=== PATIENT | female | born 1980 | race African-American/Black ===

== ENCOUNTER → 2016-08-26 | Outpatient (CLI) | payer MEDICAID ==
[~2016-08-26] MED LIST: /PANT40TA PO; MINI2CAP PO; NAPR250T2 PO; PROZ20CA11 PO; REME15TA PO
[2016-08-26 10:16] LABS: ALBUMIN 3.5 GM/DL (3.2-5.2); ALBUMIN/GLOBULIN RATIO 1.25 (1.00-1.93); ALKALINE PHOSPHATASE 91 U/L (45-117); ALT/SGPT 27 U/L (12-78); ANION GAP 11 MEQ/L (8-16); AST/SGOT 19 U/L (15-37); BILIRUBIN,TOTAL 0.4 MG/DL (0.2-1.0); BLOOD UREA NITROGEN 9 MG/DL (7-18); CARBON DIOXIDE LEVEL 22 MEQ/L (21-32); CHLORIDE LEVEL 111 MEQ/L (98-107); CHOLESTEROL LEVEL 102 MG/DL (<200); CREATININE FOR GFR 0.91 MG/DL (0.55-1.02); GLOMERULAR FILTRATION RATE > 60.0 (>60); GLUCOSE, FASTING 103 MG/DL (70-105); POTASSIUM SERUM 4.3 MEQ/L (3.5-5.1); SODIUM LEVEL 144 MEQ/L (136-145); TOTAL PROTEIN 6.3 GM/DL (6.4-8.2); TRIGLYCERIDES LEVEL 84 MG/DL (<150)
== END ==
LOC: M LAB 07:51
PROVIDERS: ATTEND Family Medicine Addiction Medicine
DX: I10 Essential (primary) hypertension (principal)

== ENCOUNTER → 2016-12-02 | Outpatient (CLI) | payer MEDICAID ==
[~2016-12-02] MED LIST changes: +IBUP-1022 PO; +LAMO100T; +LAMO25TA2; +LATU40TA; +LISI-538; +NAPR500T3 PO; +ROBA500T PO; +TYLE325T5 PO
--- NOTE | 2016-12-02 10:18 | REP ---
Chest two views HISTORY: Chest pain Comparison: 06/22/2015 The lungs are clear. The heart is normal in size. The pulmonary vasculature is normal in appearance. The bony structure is intact. IMPRESSION: No acute disease. Signed by Preet Rene MD 12/02/2016 10:09 A
--- NOTE | 2016-12-03 18:00 | ECGEPIP ---
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
== END ==
LOC: M EKG 09:26
PROVIDERS: ATTEND Family Medicine Addiction Medicine
DX: R07.89 Other chest pain (principal)

== ENCOUNTER 2017-02-10 09:16 | Emergency (ER) | payer MEDICAID ==
[~2017-02-10] VITALS: Ht 167.6 cm; Wt 123.8 kg
[~2017-02-10 09:16] MED LIST changes: -IBUP-1022 PO; -LAMO100T; -LAMO25TA2; -LATU40TA; -LISI-538; -NAPR500T3 PO; -ROBA500T PO; -TYLE325T5 PO
[2017-02-10] MEDS ORDERED: LATU40TA (09:23)
[2017-02-10] MEDS ORDERED: LAMO100T (09:23)
[2017-02-10] MEDS ORDERED: LISI-538 (09:23)
[2017-02-10] MEDS ORDERED: LAMO25TA2 (09:23)
[2017-02-10] MEDS ORDERED: IBUP-1022 PO (09:24)
[2017-02-10] MEDS ORDERED: TYLE325T5 PO (09:24)
[2017-02-10] MEDS ORDERED: KETOROLAC 60 MG/2 ML VIAL (J1885) IM ONE (10:00)
[2017-02-10] MEDS ORDERED: ROBA500T PO (10:34)
[2017-02-10] MEDS ORDERED: NAPR500T3 PO (10:34)
--- NOTE | 2017-02-10 10:36 | REP ---
Right shoulder three views : There is no fracture or dislocation. Mineralization and joint spaces are normal. There are no calcifications or foreign bodies. Impression: Negative shoulder Signed by Tony Mg MD 02/10/2017 10:28 A
[2017-02-10 11:04] VITALS: BP 138/88
== END 2017-02-10 11:05 | disposition home or self-care (01) ==
LOC: M ED 09:16
DX: S46.911A Strain of unspecified muscle, fascia and tendon at shoulder and upper arm level, right arm, initial encounter (principal); X58.XXXA Exposure to other specified factors, initial encounter; Y92.89 Other specified places as the place of occurrence of the external cause; Y93.89 Activity, other specified; Y99.8 Other external cause status; F17.210 Nicotine dependence, cigarettes, uncomplicated
CPT/HCPCS: 73030; 96372; 99282; J1885

== ENCOUNTER → 2017-06-01 | Outpatient (REF) | payer MEDICAID ==
[2017-06-01 19:35] LABS: ALBUMIN 4.4 GM/DL (3.2-5.2); ALBUMIN/GLOBULIN RATIO 1.19 (1.00-1.93); ALKALINE PHOSPHATASE 101 U/L (45-117); ALT/SGPT 40 U/L (12-78); ANION GAP 9 MEQ/L (8-16); AST/SGOT 24 U/L (7-37); BILIRUBIN,TOTAL 0.6 MG/DL (0.2-1.0); BLOOD UREA NITROGEN 11 MG/DL (7-18); CALCIUM LEVEL 8.9 MG/DL (8.5-10.1); CARBON DIOXIDE LEVEL 21 MEQ/L (21-32); CHLORIDE LEVEL 109 MEQ/L (98-107); CHOLESTEROL LEVEL 115 MG/DL (<200); CREATININE FOR GFR 1.01 MG/DL (0.55-1.30); GLOMERULAR FILTRATION RATE > 60.0 (>60); GLUCOSE, FASTING 105 MG/DL (70-100); HDL CHOLESTEROL 46 MG/DL (>40); NON-HDL-C 69 MG/DL; POTASSIUM SERUM 4.1 MEQ/L (3.5-5.1); SODIUM LEVEL 139 MEQ/L (136-145); TOTAL PROTEIN 8.1 GM/DL (6.4-8.2); TRIGLYCERIDES LEVEL 195 MG/DL (<150)
== END ==
LOC: M LAB REF 17:26
DX: I10 Essential (primary) hypertension (principal)

== ENCOUNTER 2017-06-11 10:12 | Emergency (ER) | payer MEDICAID ==
[2017-06-11] MEDS: PERCOCET 5MG/325MG TAB PO (10:46)
[2017-06-11 11:02] LABS: KETONE, URINE AUTO RFX NEGATIVE (NEGATIVE); NITRITE, URINE AUTO RFX NEGATIVE (NEGATIVE); RBC, URINE AUTO RFX 0 /HPF (0-3); SPECIFIC GRAVITY UR AUTO RFX 1.027 (1.002-1.035); SQUAM EPITHELIAL CELL UR AURFX 4 /HPF (0-6); WBC, URINE AUTO RFX 1 /HPF (0-3)
[2017-06-11 11:04] LABS: LEUKOCYTE ESTERASE UR AUTO RFX 2+ (NEGATIVE)
== END 2017-06-11 12:22 | disposition home or self-care (01) ==
LOC: M ED 10:12
DX: R10.2 Pelvic and perineal pain (principal); I10 Essential (primary) hypertension; F31.9 Bipolar disorder, unspecified; Z97.5 Presence of (intrauterine) contraceptive device; Z79.899 Other long term (current) drug therapy; F17.210 Nicotine dependence, cigarettes, uncomplicated
CPT/HCPCS: 76856

== ENCOUNTER → 2017-08-02 | Outpatient (CLI) | payer MEDICAID ==
[2017-08-02 08:56] LABS: ESTIMATED AVERAGE GLUCOSE 117 MG/DL (60-110); HEMOGLOBIN A1c 5.7 %
[2017-08-02 09:15] LABS: ALBUMIN/GLOBULIN RATIO 1.21 (1.00-1.93); ALKALINE PHOSPHATASE 93 U/L (45-117); ALT/SGPT 25 U/L (12-78); ANION GAP 4 MEQ/L (8-16); AST/SGOT 17 U/L (7-37); BILIRUBIN,TOTAL 0.6 MG/DL (0.2-1.0); BLOOD UREA NITROGEN 11 MG/DL (7-18); CALCIUM LEVEL 8.8 MG/DL (8.5-10.1); CARBON DIOXIDE LEVEL 25 MEQ/L (21-32); CHLORIDE LEVEL 111 MEQ/L (98-107); CREATININE FOR GFR 1.04 MG/DL (0.55-1.30); GLOMERULAR FILTRATION RATE > 60.0 (>60); GLUCOSE, FASTING 101 MG/DL (70-100); POTASSIUM SERUM 4.2 MEQ/L (3.5-5.1); SODIUM LEVEL 140 MEQ/L (136-145); TOTAL PROTEIN 7.3 GM/DL (6.4-8.2)
[2017-08-04 00:06] LABS: LAMOTRIGINE (LAMICTAL) None Detected ug/mL (2.0-20.0)
== END ==
LOC: M LAB 08:09
DX: F31.5 Bipolar disorder, current episode depressed, severe, with psychotic features (principal)
CPT/HCPCS: 80178

== ENCOUNTER → 2017-08-31 | Outpatient (CLI) | payer MEDICAID ==
[2017-08-31 09:24] LABS: LITHIUM LEVEL 0.68 MEQ/L (0.60-1.20)
== END ==
LOC: M LAB 08:03
DX: F31.5 Bipolar disorder, current episode depressed, severe, with psychotic features (principal)
CPT/HCPCS: 80178

== ENCOUNTER → 2018-04-21 | Outpatient (REF) | payer MEDICAID ==
[~2018-04-21] MED LIST changes: +AMOX875T PO; +IBUP-1022 PO; +IBUP-1114 PO; +KETO10TAB PO; +LAMO100T; +LAMO10TA PO; +LAMO25TA2; +LATU40TA; +LISI-538; +MIRE1IUD IU; +NAPR-885 PO; +PRAZ1CAP PO; +REXU1TAB5 PO; +ROBA500T PO; +SERO1TAB2 PO; +TYLE325T5 PO
[2018-04-21 13:31] LABS: BASO % 0.4 % (0.0-1.0); EOS # 0.2 10^3/uL (0.0-0.50); EOS % 2.1 % (0.0-3.0); HEMATOCRIT 41.2 % (36.0-47.0); LYMPH # 2.2 10^3/uL (1.5-4.5); MEAN CORPUSCULAR HEMOGLOBIN 30.7 pg (27.0-33.0); MEAN CORPUSCULAR HGB CONC 36.4 g/dl (32.0-36.5); MEAN CORPUSCULAR VOLUME 84.3 fl (80.0-96.0); MONO # 0.5 10^3/uL (0.0-0.8); MONO % 6.1 % (0.0-5.0); NEUTROPHILS # 5.1 10^3/uL (1.8-7.7); NEUTROPHILS % 63.9 % (36.0-66.0); PLATELET COUNT, AUTOMATED 262 10^3/uL (150-450); RED BLOOD COUNT 4.89 10^6/uL (4.00-5.40)
[2018-04-21 13:33] LABS: ALBUMIN 3.6 GM/DL (3.2-5.2); ALT/SGPT 28 U/L (12-78); BILIRUBIN,TOTAL 0.3 MG/DL (0.2-1.0); BLOOD UREA NITROGEN 13 MG/DL (7-18); CALCIUM LEVEL 7.9 MG/DL (8.5-10.1); CARBON DIOXIDE LEVEL 22 MEQ/L (21-32); CHLORIDE LEVEL 109 MEQ/L (98-107); CHOLESTEROL LEVEL 112 MG/DL (<200); CHOLESTEROL RISK RATIO 2.545 (<5); GLOMERULAR FILTRATION RATE > 60.0 (>60); GLUCOSE, FASTING 113 MG/DL (70-100); HDL CHOLESTEROL 44 MG/DL (>40); LDL CHOLESTEROL 54 MG/DL (<100); NON-HDL-C 68 MG/DL; POTASSIUM SERUM 4.2 MEQ/L (3.5-5.1); SODIUM LEVEL 139 MEQ/L (136-145); TRIGLYCERIDES LEVEL 71 MG/DL (<150); VITAMIN B12 LEVEL 414 PG/ML (247-911)
[2018-04-21 15:19] LABS: ERYTHROCYTE SEDIMENTATION RATE 18 mm/hr (0-20)
== END ==
LOC: M LAB REF 12:43
PROVIDERS: ATTEND Family Medicine Addiction Medicine
DX: M25.549 Pain in joints of unspecified hand (principal)

== ENCOUNTER 2018-04-26 09:45 | Emergency (ER) | payer MEDICAID ==
[~2018-04-26] VITALS: Ht 167.6 cm; Wt 118.2 kg
[2018-04-26 09:45] VITALS: BP 133/77
[~2018-04-26 09:45] MED LIST changes: -AMOX875T PO; -IBUP-1114 PO; -KETO10TAB PO; -MIRE1IUD IU; -SERO1TAB2 PO
[2018-04-26] MEDS ORDERED: IBUP-1114 PO (09:51)
[2018-04-26] MEDS ORDERED: SERO1TAB2 PO (09:51)
[2018-04-26] MEDS ORDERED: MIRE1IUD IU (09:52)
[2018-04-26] MEDS ORDERED: KETOROLAC TROMETHAMINE 10 MG TAB PO ONE (10:00)
[2018-04-26] MEDS ORDERED: AMOXICILLIN 500 MG CAP PO ONE (10:00)
[2018-04-26] MEDS ORDERED: KETO10TAB PO (10:01)
[2018-04-26] MEDS ORDERED: AMOX875T PO (10:01)
== END 2018-04-26 10:16 | disposition home or self-care (01) ==
LOC: M ED 09:45
DX: H66.91 Otitis media, unspecified, right ear (principal); R68.84 Jaw pain; R50.9 Fever, unspecified; I10 Essential (primary) hypertension; F31.9 Bipolar disorder, unspecified; F43.10 Post-traumatic stress disorder, unspecified; F41.9 Anxiety disorder, unspecified; F17.200 Nicotine dependence, unspecified, uncomplicated; Z79.899 Other long term (current) drug therapy; Z97.5 Presence of (intrauterine) contraceptive device

== ENCOUNTER → 2018-07-21 | Outpatient (REF) | payer MEDICAID ==
[~2018-07-21] MED LIST changes: +AMOX875T PO; +IBUP-1114 PO; +KETO10TAB PO; -LAMO25TA2; +LAMO25TA4; +MIRE1IUD IU; +SERO1TAB2 PO
[2018-07-21 19:49] LABS: HEMOGLOBIN A1c 5.8 %
== END ==
LOC: M LAB REF 17:26
PROVIDERS: ATTEND Family Medicine Addiction Medicine
DX: O92.6 Galactorrhea (principal)

== ENCOUNTER → 2018-10-14 | Outpatient (REF) | payer MEDICAID ==
[~2018-10-14] MED LIST changes: -/PANT40TA PO; +LAMO100T80 PO; -LAMO10TA PO; +PROT1TAB2 PO
[2018-10-14 13:14] LABS: ALT/SGPT 30 U/L (12-78); BILIRUBIN,TOTAL 0.4 MG/DL (0.2-1.0); BLOOD UREA NITROGEN 12 MG/DL (7-18); CALCIUM LEVEL 8.7 MG/DL (8.5-10.1); CARBON DIOXIDE LEVEL 24 MEQ/L (21-32); CHLORIDE LEVEL 109 MEQ/L (98-107); CHOLESTEROL LEVEL 118 MG/DL (<200); CHOLESTEROL RISK RATIO 2.744 (<5); CREATININE FOR GFR 1.14 MG/DL (0.55-1.30); GLOMERULAR FILTRATION RATE > 60.0 (>60); GLUCOSE, FASTING 113 MG/DL (70-100); HDL CHOLESTEROL 43 MG/DL (>40); LDL CHOLESTEROL 48 MG/DL (<100); NON-HDL-C 75 MG/DL; POTASSIUM SERUM 4.1 MEQ/L (3.5-5.1); SODIUM LEVEL 141 MEQ/L (136-145); TOTAL PROTEIN 6.9 GM/DL (6.4-8.2); TRIGLYCERIDES LEVEL 137 MG/DL (<150)
== END ==
LOC: M LAB REF 11:20
PROVIDERS: ATTEND Family Medicine Addiction Medicine
DX: I10 Essential (primary) hypertension (principal)

== ENCOUNTER → 2019-01-03 | Outpatient (REF) | payer MEDICAID ==
[2019-01-03 21:21] LABS: CHLAMYDIA DNA AMPLIFICATION NEGATIVE (NEGATIVE); GC DNA AMPLIFICATION NEGATIVE (NEGATIVE)
== END ==
LOC: M LAB REF 19:06
PROVIDERS: ATTEND Advanced Practice Midwife
DX: Z11.3 Encounter for screening for infections with a predominantly sexual mode of transmission (principal)

== ENCOUNTER → 2019-01-03 | Outpatient (CLI) | payer MEDICAID ==
[2019-01-04 13:18] LABS: HEPATITIS A ANTIBODY IGM NEGATIVE (NEGATIVE); HEPATITIS B CORE ANTIBODY IGM NEGATIVE (NEGATIVE); HEPATITIS B SURFACE ANTIGEN NEGATIVE (NEGATIVE); HEPATITIS C VIRUS ABY INDEX < 0.0 INDEX (<0.8); HIV 1&2 SCREEN CENTAUR NEGATIVE (NEGATIVE)
[2019-01-06 14:09] LABS: HPV HYBRID CAPTURE II Negative (Negative)
== END ==
LOC: M SMT 14:08
PROVIDERS: ATTEND Advanced Practice Midwife
DX: Z12.4 Encounter for screening for malignant neoplasm of cervix (principal); Z11.3 Encounter for screening for infections with a predominantly sexual mode of transmission

== ENCOUNTER → 2019-11-01 | Outpatient (CLI) | payer MEDICAID ==
[~2019-11-01] MED LIST changes: -LAMO100T; +LAMO100T3
[2019-11-01 14:21] LABS: HEMATOCRIT 40.5 % (36.0-47.0); HEMOGLOBIN 14.8 g/dl (12.0-15.5); MEAN CORPUSCULAR HGB CONC 36.5 g/dl (32.0-36.5); MEAN CORPUSCULAR VOLUME 84.7 fl (80.0-96.0); PLATELET COUNT, AUTOMATED 246 10^3/uL (150-450); RED BLOOD COUNT 4.78 10^6/uL (4.00-5.40); WHITE BLOOD COUNT 7.9 10^3/uL (4.0-10.0)
[2019-11-01 14:48] LABS: HEMOGLOBIN A1c 5.9 %
[2019-11-01 14:58] LABS: ALBUMIN 3.9 GM/DL (3.2-5.2); ALT/SGPT 31 U/L (12-78); BILIRUBIN,TOTAL 0.9 MG/DL (0.2-1.0); BLOOD UREA NITROGEN 9 MG/DL (7-18); CALCIUM LEVEL 9.2 MG/DL (8.5-10.1); CARBON DIOXIDE LEVEL 25 MEQ/L (21-32); CHLORIDE LEVEL 110 MEQ/L (98-107); CHOLESTEROL LEVEL 120 MG/DL (<200); CREATININE FOR GFR 0.93 MG/DL (0.55-1.30); GLOMERULAR FILTRATION RATE > 60.0 (>60); GLUCOSE, FASTING 107 MG/DL (70-100); HDL CHOLESTEROL 40 MG/DL (>40); LDL CHOLESTEROL 51 MG/DL (<100); NON-HDL-C 80 MG/DL; POTASSIUM SERUM 4.1 MEQ/L (3.5-5.1); SODIUM LEVEL 140 MEQ/L (136-145); TOTAL 25(OH) VITAMIN D 22.9 NG/ML (30.0-100.0); TRIGLYCERIDES LEVEL 143 MG/DL (<150)
--- NOTE | 2019-11-02 08:46 | ECGEPIP ---
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
== END ==
LOC: M LAB 13:09
PROVIDERS: ATTEND Nurse Practitioner Psychiatric/Mental Health
DX: F43.10 Post-traumatic stress disorder, unspecified (principal); F31.9 Bipolar disorder, unspecified

== ENCOUNTER → 2020-02-13 | Outpatient (CLI) | payer MEDICAID ==
--- NOTE | 2020-02-13 10:58 | ECGEPIP ---
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
[2020-02-13 15:21] LABS: BASO % 0.4 % (0.0-1.0); EOS # 0.1 10^3/uL (0.0-0.5); EOS % 1.2 % (0.0-3.0); HEMATOCRIT 41.3 % (36.0-47.0); HEMOGLOBIN 14.5 g/dl (12.0-15.5); LYMPH # 2.6 10^3/uL (1.5-5.0); MEAN CORPUSCULAR HEMOGLOBIN 29.4 pg (27.0-33.0); MEAN CORPUSCULAR HGB CONC 35.1 g/dl (32.0-36.5); MEAN CORPUSCULAR VOLUME 83.8 fl (80.0-96.0); MONO # 0.6 10^3/uL (0.0-0.8); MONO % 6.6 % (0.0-5.0); NEUTROPHILS # 5.6 10^3/uL (1.5-8.5); NEUTROPHILS % 62.4 % (36.0-66.0); PLATELET COUNT, AUTOMATED 249 10^3/uL (150-450); RED BLOOD COUNT 4.93 10^6/uL (4.00-5.40)
[2020-02-13 16:01] LABS: ALBUMIN 3.8 GM/DL (3.2-5.2); ALT/SGPT 34 U/L (12-78); BILIRUBIN,TOTAL 0.3 MG/DL (0.2-1.0); BLOOD UREA NITROGEN 10 MG/DL (7-18); CALCIUM LEVEL 8.8 MG/DL (8.5-10.1); CARBON DIOXIDE LEVEL 24 MEQ/L (21-32); CHLORIDE LEVEL 110 MEQ/L (98-107); CHOLESTEROL LEVEL 112 MG/DL (<200); CHOLESTEROL RISK RATIO 2.382 (<5); CREATININE FOR GFR 1.01 MG/DL (0.55-1.30); GLOMERULAR FILTRATION RATE > 60.0 (>60); GLUCOSE, FASTING 96 MG/DL (70-100); HDL CHOLESTEROL 47 MG/DL (>40); LDL CHOLESTEROL 45 MG/DL (<100); NON-HDL-C 65 MG/DL; POTASSIUM SERUM 4.6 MEQ/L (3.5-5.1); SODIUM LEVEL 141 MEQ/L (136-145); TOTAL PROTEIN 6.8 GM/DL (6.4-8.2); TRIGLYCERIDES LEVEL 102 MG/DL (<150)
[2020-02-13 16:03] LABS: HEMOGLOBIN A1c 5.6 %
[2020-02-13 16:05] LABS: TOTAL 25(OH) VITAMIN D 22.5 NG/ML (30.0-100.0); VITAMIN B12 LEVEL 449 PG/ML (247-911)
[2020-02-21 16:08] LABS: VITAMIN B1 LEVEL WHOLE BLOOD 86.1 nmol/L (66.5-200.0)
== END ==
LOC: M LAB 10:20
PROVIDERS: ATTEND Nurse Practitioner Psychiatric/Mental Health
DX: F31.9 Bipolar disorder, unspecified (principal)

== ENCOUNTER → 2020-03-18 | Outpatient (CLI) | payer MEDICAID ==
--- NOTE | 2020-03-19 03:02 | REP ---
INDICATION: ACUTE PAIN WITH SCIATICA COMPARISON: None. TECHNIQUE: AP, lateral, coned-down views of the lumbar spine. FINDINGS: Three views of the lumbosacral spine demonstrate satisfactory alignment and lordosis without acute fracture / compression injury or subluxation. Lateral views demonstrate endplate sclerosis and disc space narrowing at the L5-S1 level which should be correlated clinically. IMPRESSION: 1. No acute fracture / compression injury or subluxation. 2. Focal degenerative changes at L5-S1. <Electronically signed by Deion Meneses > 03/19/20 [id number]
== END ==
LOC: M RAD 13:20
PROVIDERS: ATTEND Family Medicine Addiction Medicine
DX: M54.40 Lumbago with sciatica, unspecified side (principal); M51.37 Other intervertebral disc degeneration, lumbosacral region

== ENCOUNTER → 2020-05-28 | Outpatient (CLI) | payer MEDICAID ==
[~2020-05-28] MED LIST changes: -LISI-538; +LISI20TA33; +PRED20TA PO; +PROP10TA56 PO; +QC A650T3 PO; +QUET400T42 PO; +ROBA750T4 PO
== END ==
LOC: M RAD 15:09
PROVIDERS: ATTEND Family Medicine Addiction Medicine
DX: Z53.9 Procedure and treatment not carried out, unspecified reason (principal); M54.40 Lumbago with sciatica, unspecified side

== ENCOUNTER 2020-06-26 10:22 | Outpatient (RCR) | payer MEDICAID | END 2020-06-30 | disposition home or self-care (01) | LOC: M PT 10:22 | PROVIDERS: ATTEND Orthopaedic Surgery | DX: M54.17 Radiculopathy, lumbosacral region (principal) ==

== ENCOUNTER 2020-07-17 11:30 | Outpatient (RCR) | payer MEDICAID | END 2020-07-31 | LOC: M PT 11:30 | PROVIDERS: ATTEND Orthopaedic Surgery | DX: M51.16 Intervertebral disc disorders with radiculopathy, lumbar region (principal) ==

== ENCOUNTER 2020-08-10 07:21 | Emergency (ER) | payer MEDICAID ==
[~2020-08-10] VITALS: Ht 165.1 cm; Wt 127.8 kg
[2020-08-10] MEDS ORDERED: SERO150T2 PO (07:33)
[2020-08-10] MEDS ORDERED: SERO400T PO (07:33)
[2020-08-10] MEDS ORDERED: GABA-282 PO (07:33)
[2020-08-10] MEDS ORDERED: AUGMENTIN 875 MG TAB PO ONE (07:55)
[2020-08-10] MEDS ORDERED: KETOROLAC 30 MG/ML 1ML VIAL IM ONE (07:55)
[2020-08-10] MEDS ORDERED: AUGM875T28 PO (08:20)
[2020-08-10 08:34] VITALS: BP 130/92
== END 2020-08-10 08:34 | disposition home or self-care (01) ==
LOC: M ED 07:21
DX: K08.89 Other specified disorders of teeth and supporting structures (principal); K03.81 Cracked tooth; I10 Essential (primary) hypertension; F41.9 Anxiety disorder, unspecified; F31.89 Other bipolar disorder; F17.200 Nicotine dependence, unspecified, uncomplicated; Z97.5 Presence of (intrauterine) contraceptive device; Z79.899 Other long term (current) drug therapy; Z91.018 Allergy to other foods
CPT/HCPCS: 96372; 99283; J1885

== ENCOUNTER → 2020-08-23 | Outpatient (CLI) | payer MEDICAID ==
[~2020-08-23] MED LIST changes: +AUGM875T28 PO; +GABA-282 PO; +SERO150T2 PO; +SERO400T PO
--- NOTE | 2020-08-23 14:34 | REP ---
INDICATION: V COMPARISON: None. TECHNIQUE: Transabdominal pelvic ultrasound followed by transvaginal examination for better evaluation of the endometrium and adnexa with color Doppler evaluation of the ovaries. FINDINGS: Bladder is unremarkable and measures 5.5 x 4.9 x 6.6 cm. Normal anteverted uterus measures 8.1 x 3.5 x 5.1 cm. The endometrial complex measures 3 mm thickness. IUD identified in central satisfactory position. Bilateral ovaries are normal in appearance and vascularity without evidence for torsion. Right ovary measures 2.3 x 1.7 x 1.6 cm; R I = 0.46. Left ovary measures 2.7 x 1.9 x 2.5 cm; R I = 0.30. No pelvic fluid or adnexal mass lesion IMPRESSION: Normal pelvic ultrasound. IUD in satisfactory position. <Electronically signed by Deion Meneses > 08/23/20 2114
== END ==
LOC: M RAD 12:59
PROVIDERS: ATTEND Physician Assistant Medical
DX: R10.2 Pelvic and perineal pain (principal); Z97.5 Presence of (intrauterine) contraceptive device

== ENCOUNTER → 2020-09-21 | Outpatient (CLI) | payer MEDICAID ==
[2020-09-21 12:54] LABS: HEMOGLOBIN 14.8 g/dl (12.0-15.5); MEAN CORPUSCULAR HEMOGLOBIN 30.4 pg (27.0-33.0); MEAN CORPUSCULAR HGB CONC 36.1 g/dl (32.0-36.5); MEAN CORPUSCULAR VOLUME 84.2 fl (80.0-96.0); PLATELET COUNT, AUTOMATED 268 10^3/uL (150-450); RED BLOOD COUNT 4.87 10^6/uL (4.00-5.40); WHITE BLOOD COUNT 10.2 10^3/uL (4.0-10.0)
[2020-09-21 13:12] LABS: HEMOGLOBIN A1c 5.6 %
[2020-09-21 13:24] LABS: ALBUMIN 3.9 GM/DL (3.2-5.2); ALT/SGPT 31 U/L (12-78); BILIRUBIN,DIRECT 0.2 MG/DL (0.0-0.2); BILIRUBIN,TOTAL 0.5 MG/DL (0.2-1.0); BLOOD UREA NITROGEN 13 MG/DL (7-18); CARBON DIOXIDE LEVEL 24 MEQ/L (21-32); CHLORIDE LEVEL 111 MEQ/L (98-107); CHOLESTEROL LEVEL 126 MG/DL (<200); CHOLESTEROL RISK RATIO 2.625 (<5); CREATININE FOR GFR 0.91 MG/DL (0.55-1.30); GLOMERULAR FILTRATION RATE > 60.0 (>60); GLUCOSE, FASTING 102 MG/DL (70-100); HDL CHOLESTEROL 48 MG/DL (>40); LDL CHOLESTEROL 56 MG/DL (<100); NON-HDL-C 78 MG/DL; PHOSPHORUS LEVEL 3.3 MG/DL (2.5-4.9); POTASSIUM SERUM 4.3 MEQ/L (3.5-5.1); SODIUM LEVEL 141 MEQ/L (136-145); TOTAL PROTEIN 7.1 GM/DL (6.4-8.2); TRIGLYCERIDES LEVEL 110 MG/DL (<150)
[2020-09-23 13:12] LABS: TOTAL 25(OH) VITAMIN D 21.1 NG/ML (30.0-100.0)
== END ==
LOC: M LAB 12:14
PROVIDERS: ATTEND Nurse Practitioner Psychiatric/Mental Health
DX: F31.5 Bipolar disorder, current episode depressed, severe, with psychotic features (principal)

== ENCOUNTER 2020-11-07 13:40 | Emergency (ER) | payer MEDICAID ==
[~2020-11-07] VITALS: Ht 167.6 cm; Wt 132.8 kg
[2020-11-07] MEDS ORDERED: KETOROLAC 60MG 2ML VIAL IM ONE (15:25)
[2020-11-07] MEDS ORDERED: CYCLOBENZAPRINE 10MG TABLET PO ONE (15:25)
--- NOTE | 2020-11-07 16:17 | REP ---
INDICATION: pain in back radiating to buttock COMPARISON: None. TECHNIQUE: AP, lateral, bilateral oblique, and coned-down views of the lumbar spine. FINDINGS: Alignment and lordosis maintained. Vertebral bodies are intact. No acute fracture/compression injury or subluxation. No obvious spondylolysis or spondylolisthesis. Minimal focal degenerative changes at L5-S1 includes endplate sclerosis, early marginal spurring, and mild disc space narrowing. IMPRESSION: Mild degenerative changes at L5-S1. <Electronically signed by Deion Meneses > 11/07/20 [id number]
--- NOTE | 2020-11-07 16:18 | REP ---
INDICATION: pain in neck/numbess left pinky COMPARISON: None. TECHNIQUE: AP, lateral, flexion/extension, bilateral oblique, swimmer's and open-mouth views. FINDINGS: Alignment is maintained. There is no evidence for acute fracture / compression injury or subluxation. No significant degenerative changes are appreciated. Oblique views demonstrate patent neural foramen. Open mouth view demonstrates normal C1-C2 articulation and odontoid process. IMPRESSION: Normal cervical spine series. <Electronically signed by Deion Meneses > 11/07/20 1508
--- NOTE | 2020-11-07 16:19 | REP ---
INDICATION: pain in neck/numbess left pinky COMPARISON: None. TECHNIQUE: AP, lateral, and swimmers views. FINDINGS: Alignment and kyphosis is maintained. Vertebral bodies intact. No acute fracture / compression injury or subluxation. No degenerative changes. Paravertebral soft tissues are normal. IMPRESSION: Normal thoracic spine series. <Electronically signed by Deion Meneses > 11/07/20 2956
[2020-11-07] MEDS ORDERED: CYCL-707 PO (16:39)
[2020-11-07 16:50] VITALS: BP 160/94
== END 2020-11-07 16:50 | disposition home or self-care (01) ==
LOC: M ED 13:40
DX: M54.9 Dorsalgia, unspecified (principal); M54.2 Cervicalgia; I10 Essential (primary) hypertension; F41.9 Anxiety disorder, unspecified; F31.9 Bipolar disorder, unspecified; F43.10 Post-traumatic stress disorder, unspecified; F17.200 Nicotine dependence, unspecified, uncomplicated; F12.10 Cannabis abuse, uncomplicated; Z79.3 Long term (current) use of hormonal contraceptives; Z79.899 Other long term (current) drug therapy; Z91.018 Allergy to other foods
CPT/HCPCS: 72052; 72072; 72110; 81001; 96372; 99284; J1885

== ENCOUNTER → 2020-12-25 | Outpatient (CLI) | payer MEDICAID ==
[~2020-12-25] MED LIST changes: +CYCL-707 PO
--- NOTE | 2020-12-26 08:03 | REP ---
INDICATION: DISC DEGENERATION, R/O STENOSIS VS HNP. Repeat dictation. Preliminary report is provided at the time of the exam by maggy QUIJAON. COMPARISON: Comparison lumbar spine radiographs November 07, 2020. 07 May 2020. TECHNIQUE: Sagittal and axial T1 and T2-weighted scans are acquired in the usual fashion with and without fat saturation. Sequences include spin echo, turbo spin-echo, and STIR imaging sequences. FINDINGS: Lumbar vertebral body heights are preserved. Alignment is normal. The tip of the conus medullaris is normal in position and appearance at L1. Previously noted left renal cyst is again seen, partially included in the imaging field of view as before. No other extra vertebral abnormality is observed. Axial and sagittal images taken at the L5-S1 level again demonstrate degenerative narrowing and desiccation in the L5-S1 disc. There is central broad-based moderate disc bulging. Facet hypertrophy is again noted. There is mild left and moderate right-sided neural foraminal narrowing due to disc bulging and facet hypertrophy at the L5-S1 level. This is essentially unchanged. Axial and sagittal images taken at L4-5 demonstrate minimal diffuse disc bulging. No spinal stenosis or significant foraminal encroachment. At L3-4, L2-3, and L1-2, sagittal and axial images show no significant abnormality. IMPRESSION: Degenerative disc and osteoarthritic facet changes again noted at L5-S1 with diffuse moderate disc bulging and bilateral foraminal narrowing as above, right greater than left. <Electronically signed by Porter Riddle > 12/26/20 [id number]
== END ==
LOC: M RAD 13:42
PROVIDERS: ATTEND Physician Assistant
DX: M51.37 Other intervertebral disc degeneration, lumbosacral region (principal); M51.26 Other intervertebral disc displacement, lumbar region; N28.1 Cyst of kidney, acquired

== ENCOUNTER 2021-02-28 09:34 | Emergency (ER) | payer MEDICAID ==
[~2021-02-28] VITALS: Ht 165.1 cm; Wt 132.3 kg
--- OUTSIDE RECORDS SUMMARY | 2021-02-28 09:41 | CCD ---
Author Organization Unknown Address [address] [place] [id number] Phone [phone] Care Team Providers Care Trauma Manager Name Role Phone Ihsan David Unavailable Unavailable Allergies Code Code System Name Reaction Severity Status Onset [id number] RxNorm Gluten Active 08/30/2015 NKDA Medications Name Status Start Date Stop Date amoxicillin 875 mg-potassium clavulanate 125 mg tablet TAKE 1 TABLET BY MOUTH TWICE DAILY Completed 11/01 buspirone 10 mg tablet TK 1 T PO BID FOR ANXIETY Completed 03/13/2020 clonidine HCl 0.1 mg tablet TAKE 1 TABLET BY MOUTH TWICE A DAY NEEDED Completed 03/13/2020 cyclobenzaprine 10 mg tablet TAKE 1 TABLET BY MOUTH THREE TIMES DAILY NEEDED FOR MUSCLE SPASMS Completed 11/27/2020 gabapentin 100 mg capsule TAKE 1 TO 2 CAPSULES BY MOUTH THREE TIMES DAILY Completed 11/27/2020 gabapentin 300 mg capsule TAKE 1 CAPSULE BY MOUTH THREE TIMES DAILY. MAXIMUM DAILY DOSE IS 3 Completed 11/27/2020 gabapentin 600 mg tablet TAKE 1 TABLET BY MOUTH THREE TIMES DAILY. MAXIMUM DAILY DOSE IS 3 Active Not available Invega Sustenna 156 mg/mL intramuscular syringe USE 1 SYRINGE ONCE A MONTH PRN BRING TO THE CLINIC FOR NURSE TO ADMNISTER Completed 03/13/2020 Invega Sustenna 234 mg/1.5 mL intramuscular syringe Completed 03/13/2020 lithium carbonate 300 mg capsule TK 1 C PO BID Completed 03/13/2020 meloxicam 15 mg tablet TAKE 1 TABLET BY MOUTH EVERY DAY WITH FOOD OR MILK Completed 11/27/2020 methocarbamol 750 mg tablet TAKE 1 TABLET BY MOUTH THREE TIMES DAILY Completed 11/27/2020 methylprednisolone 4 mg tablets in a dos e pack TAKE DIRECTED Completed 02/12/2021 metronidazole 0.75 % vaginal gel INSERT 1 APPLICATORFUL BY VAGINAL ROUTE EVERY DAY AT BEDTIME FOR 5 NIGHTS Completed 11/27/2020 metronidazole 500 mg tablet TAKE 4 TABLETS BY MOUTH ONCE A SINGLE DOSE Completed 11/27/2020 nicotine 14 mg/24 hr daily transdermal p atch APPLY 1 PATCH EXTERNALLY TO THE SKIN EVERY DAY Completed 11/27/2020 prednisone 20 mg tablet TAKE 3 TABLETS BY MOUTH DAILY Completed propranolol 10 mg tablet TAKE 1 TABLET BY MOUTH TWICE DAILY NEEDED Completed 11/27/2020 quetiapine 100 mg tablet TK 1 T PO QHS DIRECTED Completed 03/13/2020 quetiapine 300 mg tablet Take 1 tablet every day by oral route. Active Not available quetiapine ER 150 mg tablet,extended rel ease 24 hr TAKE 1 TABLET BY MOUTH EVERY NIGHT Completed 01/31 quetiapine ER 300 mg tablet,extended rel ease 24 hr TK 1 T PO HS UTD Completed 04/10/2020 quetiapine ER 400 mg tablet,extended rel ease 24 hr TAKE 1 TABLET BY MOUTH AT BEDTIME DIRECTED Active Not available ramelteon 8 mg tablet TK 1 T PO HS Completed 03/13/2020 Problems Name Status Onset Date Source Moderate Major Depression, Single Episode Active 2015 History Generalized Anxiety Disorder Active 06/20/2015 His tory Tobacco User Active 06/20/2015 History Depressive Disorder Active 06/20/2015 History Acute Otitis Externa Unknown 06/20/2015 History Hypertensive Disorder Active 06/20/2015 History Abdominal Pain Unknown 06/20/2015 History Influenza Vaccine Needed Unknown 06/20/2015 History Procedure by Method Unknown 06/20/2015 History Impacted Cerumen in Right Ear Unknown 06/20/[address] Concept Unknown 06/20/2015 History Tobacco Use and Exposure - Finding Active 06/20/2015 History Itching of Skin Active 07/26/2015 History Allergy to Nut Active 07/26/2015 History Did Not Wait for Treatment Unknown 08/30/2015 Histo ry Posttraumatic Stress Disorder Active 12/25/2015 Hi story Gastritis Active 01/31/2016 History Dysphonia Active 04/02/2016 History Pain in Right Foot Unknown 07/02/2016 History Manic Bipolar I Disorder in Full Remission Active 09/21 History Cough Unknown 09/24/2016 History Chest Pain Active 12/01/2016 History Disorder of External Ear Unknown 03/30/2017 History Joint Finding Unknown 02/18/2018 History 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 History Acute Back Pain with Sciatica Active 09/09/2018 Hi story Screening for Malignant Neoplasm of Cervix Unknown 10/21 History Influenza Vaccine Needed Active 12/09/2018 History Hemoglobin a1C - Diabetic Control Finding Active 2018 History Low Back Pain Active 07/06/2019 History Dental Caries on Smooth Surface Penetrating into Pulp Active 02/13/2020 History Headache Active 02/12/2021 Procedures Date Name Performed by 03/13/2020 XR, Lumbosacral Spine, 2 or 3 View [facility] [address] [place] [address] (Work Place) 04/10/2020 MRI, Lumbar Spine, W/o Contrast [facility] [address], [place] [id number] (Work Place) 02/12/2021 CT, Brain, W/o Contrast [facility] [address], [place] [id number] (Work Place) Notes: Tubal ligation Results Lab Results Date Name Specimen Result Interpretation Description Value Range Status Address 09/21/2020 Cbc High White Blood Count 10.2 10 4.0-10 .0 10 [facility]: [address] [place] [address] Normal Red Blood Count 4.87 10 4.00-5.40 10 [facility]: [address] [place] [address] Normal Hemoglobin 14.8 g/dL 12.0-15.5 g/dL [facility]: [address] [place] [address] Normal Hematocrit 41.0 % 36.0-47.0 % [facility]: [address] [place] [address] Normal Mean Corpuscular Volume 84.2 fL 80.0 -96.0 fL [facility]: [address] [place] [address] Normal Mean Corpuscular Hemoglobin 30.4 pg 27.0-33.0 pg [facility]: [address] [place] [address] Normal Mean Corpuscular HGB Conc 36.1 g/dL 32.0-36.5 g/dL [facility]: [address] [place] [address] Normal Red Cell Distribution Width 12.7 % 1 1.5-14.5 % [facility]: [address] [place] [address] Normal Platelet Count, Automated 268 10 150 -450 10 [facility]: [address] [facility] Normal Nucleated Red Blood Cell % 0.0 % 0- 0 % [facility]: [address] [facility] 09/21/2020 HbA1C (Hemoglobin a1C), Blood Normal Hemogl obin a1C 5.6 % [facility]: [address] [facility] High Estimated Average Glucose 114 mg/dL 60-110 mg/dL [facility]: [address] [facility] 09/21/2020 CMP, Serum or Plasma High Glucose, Fastin g 102 mg/dL 70-100 mg/dL [facility]: [address] [facility] Normal Blood Urea Nitrogen 13 mg/dL 7-18 mg /dL [facility]: [address] [facility] Normal Creatinine for GFR 0.91 mg/dL 0.55-1 .30 mg/dL [facility]: [address] [facility] Normal Glomerular Filtration Rate > 60.0 >6 0 [facility]: [address] [facility] Normal Sodium Level 141 mEq/L 136-145 mEq/L [facility]: [address] [facility] Normal Potassium Serum 4.3 mEq/L 3.5-5.1 mE q/L [facility]: [address] [facility] High Chloride Level 111 mEq/L 98-107 mEq/ L [facility]: [address] [facility] Normal Carbon Dioxide Level 24 mEq/L 21-32 mEq/L [facility]: [address] [facility] Low Anion Gap 6 mEq/L 8-16 mEq/L [facility]: [address] [facility] Normal Calcium Level 9.0 mg/dL 8.5-10.1 mg/ dL [facility]: [address] [facility] Normal AST/SGOT 13 U/L 7-37 U/L [facility]: [address] [facility] Normal ALT/SGPT 31 U/L 12-78 U/L [facility]: [address] [facility] Normal Alkaline Phosphatase 90 U/L 45-117 U /L [facility]: [address] [facility] Normal Bilirubin,total 0.5 mg/dL 0.2-1.0 mg /dL [facility]: [address] [facility] Normal Total Protein 7.1 gm/dL 6.4-8.2 gm/d L [facility]: [address] [facility] Normal Albumin 3.9 gm/dL 3.2-5.2 gm/dL Mee l [facility]: [address] [facility] Normal Albumin/globulin Ratio 1.2 1.2-2. 2 [facility]: [address] [facility] 09/21/2020 Lipid Panel, Blood Normal Triglycerides Lev el 110 mg/dL <150 mg/dL [facility]: [address] 0 [facility] Normal Cholesterol Level 126 mg/dL <200 mg/ dL [facility]: [address] [facility] Normal HDL Cholesterol 48 mg/dL >40 mg/dL F inal [facility]: [address] [facility] Normal LDL Cholesterol 56 mg/dL <100 mg/dL [facility]: [address] [facility] Normal Non-hdl-c 78 mg/dL [facility]: [address] [facility] Normal Cholesterol Risk Ratio 2.625 <5 [facility]: [address] [facility] 09/21/2020 Hepatic Function Panel, Serum Normal Bilirubin,direct 0.2 mg/dL 0.0-0.2 mg/dL [facility] Ce nter: [address] [facility] 09/21/2020 Renal Function Panel, Serum Normal Phosphor us Level 3.3 mg/dL 2.5-4.9 mg/dL [facility]: [address] 0 [facility] 09/21/2020 TSH, Serum or Plasma Normal Thyroid Stimulating Hormone 1.560 uIU/mL 0.358-3.740 uIU/mL [facility] Ce nter: [address] [facility] 09/21/2020 Vitamin D, 25-Hydroxy, Total, Serum Low Total 25(Oh) Vitamin D 21.1 NG/mL 30.0-100.0 NG/mL [facility] nter: [address] [place] [address] 05/07/2020 Istat B-HCG Normal Istat B-HCG < 5.0 F inal [facility]: [address] [place] [address] 02/13/2020 Amphetamines Blood Screen Normal Specimen Type . [facility]: [address] [place] [address] Normal Amphetamine Blood Screen negative . [facility]: [address] [place] [address] 02/13/2020 Vitamin B1 (Thiamine), Blood Normal Vitamin B1 Level Whole Blood 86.1 nmol/L 66.5-200.0 nmol/L [facility]: [address] [place] [address] 02/13/2020 Drug Screen, Blood Normal Amphetami beata Screen, Blood negative NG/mL cutoff:50 NG/mL [facility] nter: [address] [place] [address] Normal Barbiturates Screen, Blood neg ative ug/mL cutoff:0.1 ug/mL [facility]: [address] [place] [address] Normal Benzodiazepines Screen, Blood negative NG/mL cutoff:20 NG/mL [facility]: [address] [place] [address] ABNORMAL Cannabinoid Screen, Blood ++p ositive++ NG/mL cutoff:5 NG/mL [facility]: [address] [place] [address] Normal Cocaine + Metab. Screen, Blood negative NG/mL cutoff:25 NG/mL [facility]: [address] [place] [address] Normal Opiates Screen, Blood negative NG/mL cutoff:5 NG/mL [facility]: [address] [place] [address] Normal Oxycodone Screen negative NG/mL cuto ff:5 NG/mL [facility]: [address] [place] [address] Normal Phencyclidine Screen, Blood ne gative NG/mL cutoff:8 NG/mL [facility]: [address] [place] [address] Normal Cannabinoid Confirmation positive . [facility]: [address] [facility] Normal tetrahydrocannabinol(THC) 12.6 NG/mL . NG/mL [facility]: [address] [facility] Normal Carboxy-thc 172.4 NG/mL . NG/mL Mee l [facility]: [address] [facility] Normal Hydroxy-thc 4.9 NG/mL . NG/mL [facility]: [address] [facility] Normal Cannabinol negative NG/mL . NG/mL Fi nal [facility]: [address] [facility] Normal Cannabidiol negative NG/mL . NG/mL F inal [facility]: [address] [facility] Past Encounters 02/12/2021 Low Back Pain; Tobacco User; Moderate Major Depression, Single Episode; Headache; Body Mass Index 30+ - Obesity David Champagne MD: [address] [place] [phone], Ph. 11/27/2020 Low Back Pain David Champagne MD: [address] [place] [phone], Ph. 05/20/2020 Low Back Pain; Nicotine Dependence; Bipolar Disorder; Cyst of Kidney; Mental Health Screening Assessment Amy Perez PA-C: [address] [place] [phone], Ph. 04/10/2020 Acute Back Pain with Sciatica David Champagne MD: [address] [place] [phone], Ph. 03/13/2020 Acute Back Pain with Sciatica; Gastritis; Administration of Influenza Vaccine David Champagne MD: [address] [place] [phone], Ph. Social History Tobacco Smoking Status Heavy Tobacco Smoker (1 pack per a da y) Vaccine List Vaccine Type COVID-19, mRNA, LNP-S, PF, 100 mcg/0.5 m L dose 09/03/2020 10/01/2020 Influenza, injectable, MDCK, preservativ e free, quadrivalent 07/08/20180.5 mL influenza, injectable, quadrivalent, pre servative free 03/13/20200.5 mL influenza, intradermal, quadrivalent, pr eservative free 02/12/2021 influenza, seasonal, injectable 06/20/20150.5 mL MMR 12/09/20180.5 mL Tdap 06/20/20150.5 mL Plan of Care Reminders Provider Appointments None recorded. Lab None recorded. Referral None recorded. Procedures None recorded. Surgeries None recorded. Imaging None recorded. Vitals 02/12/2021 11:20AM ESTABLISHED [id number] Height Weight BMI Blood Pressure 62 in 295 lbs 4 oz 54 kg/m2 129/90 mm[Hg] 11/27/2020 11:20AM ED FOLLOW-UP Height Weight BMI Blood Pressure 62 in 290 lbs 2 oz 53.1 kg/m2 134/88 mm[Hg] 05/20/2020 02:00PM TELEHEALTH 20 Height 62 in 04/10/2020 09:00AM PROVIDER REQUESTED Height Weight BMI Blood Pressure 62 in 275 lbs 9.6 oz 50.4 kg/m2 130/88 mm[Hg ] 03/13/2020 09:00AM ESTABLISHED [id number] Height Weight BMI Blood Pressure 62 in 135/99 mm[Hg] 02/14/2020 Height Weight BMI Blood Pressure 62 in 271 lbs 49.75 kg/m2 139/99 mm[Hg] 07/25/2019 Height Weight BMI Blood Pressure 62 in 258 lbs 47.36 kg/m2 122/87 mm[Hg] 07/06/2019 Height Weight BMI Blood Pressure 62 in 257 lbs 2.08 oz 47.20 kg/m2 122/85 mm[H g] 12/09/2018 Height Weight BMI Blood Pressure 62 in 264 lbs 9.6 oz 48.57 kg/m2 123/89 mm[Hg ] 09/09/2018 Height Weight BMI Blood Pressure 72 in 272 lbs 37.02 kg/m2 126/87 mm[Hg] 07/08/2018 Height Weight BMI Blood Pressure 72 in 277 lbs 2.08 oz 37.72 kg/m2 121/82 mm[H g] 05/17/2018 Height Weight BMI Blood Pressure 72 in 276 lbs 37.57 kg/m2 140/97 mm[Hg]
--- OUTSIDE RECORDS SUMMARY | 2021-02-28 09:41 | CCD ---
Author Author Jovita Pickering Organization Unknown Address [address] [place] [address] Phone Care Team Providers Care Dispatcher Chief Coal Slurry Name Role Phone Nadeemkassie Soniya PCP Allergies, Adverse Reactions, Alerts No Data in Section Problem List Concept Problem Description Status Start Date Created Date Resolv ed Date Snomed Code F31.81 Bipolar II Disorder Active 02/13/2021 Medications Rx Norm Medication Route Route Concept Start Date Stop Date Dosage Brandon quency Duration Formula Strength Dosage Form Dosage Form Code Dosage Description Medication Id Account Npid Author First Name Author Last Name Taxonomy Code Taxonomy Desc Phone Number [phone] quetiapine by mouth [id number] 03/12/2020 05/14/2021 at bedtime 30 400 mg tablet extended release 24 hr as directed [id number] Soniya Pickering [id number] Psychiatric/Mental Health [phone] [id number] Seroquel XR by mouth [id number] 10/16/2020 05/14/2021 every night 30 300 mg tablet extended release 24 hr [phone] Soniya Pickering [id number] Psychiatric/Mental Health [phone] Social History Social History Element Description Concept Effective Date Smoking Status Unknown if ever smoked [id number] Immunizations No Data in Section Vital Signs Encounter Date Height Ins Weight Lbs Bmi Bp Systolic Bp Diastoli c Oxygen Saturation Respiration Rate Pulse Rate Body Temp Head Circumference Heigh t Lying 02/13/2021 0.00 295.00 0.00 0 0 0.00 0 0 0.00 0.0 0. 00 Procedures Date Concept Id Description Targeted Site Concept Targeted Site Concept Type 02/13/2021 73585-51 [facility] Telemed E/M Lvl 3--Est pt CPT 02/13/2021 54605-45 Telemed A/O 30" CPT Patient has no history of implantable de vices Encounters Encounter Start Date End Date Encounter Type Description Diagnosis Di agnosis Desc Location Author First Name Author Last Name Npid Taxonomy Cod e Taxonomy Desc Phone Number Location Addr1 Location Addr2 Location [facility] Location Sta te Location [facility] [id number] 02/13/2021 02/13/2021 49765-11 MHC Telemed E/M Lvl 3--Est p t F31.81 Bipolar II disorder [facility] [id number] Psychiatric/Mental Health [phone] [address] [phone] Plan of Treatment No Data in Section Lab Results No Data in Section Instructions No Data in Section Functional Cognitive Status No Data in Section Insurance Providers Insurance Id Policy Effective Date Policy Thru Date OutSystems Daniella davidson [id number] MEDICAID
--- OUTSIDE RECORDS SUMMARY | 2021-02-28 09:41 | CCD ---
Author Author Jovita Pickering Organization Unknown Address [address] [place] [address] Phone Care Team Providers Care Historic Sites Registrar Name Role Phone NadeemSoniya fernando PCP Allergies, Adverse Reactions, Alerts No Data [...] Name Taxonomy Code Taxonomy Desc Phone Number [phone] Seroquel XR by mouth [id number] 10/16/2020 03/09/2021 every night 30 300 mg tablet extended release 24 hr [id number] Alma Rosa Erwin [id number] Nurse Practitioner [id number] quetiapine by mouth [id number] 03/12/2020 03/12/2021 at bedtime 30 400 mg tablet extended release 24 hr as directed [id number] Soniya Pickering [id number] Psychiatric/Mental Health [phone] Social History Social History Element Description Concept Effective Date Smoking Status Unknown if ever smoked [id number] Immunizations No Data in Section Vital Signs Encounter Date Height Ins Weight Lbs Bmi Bp Systolic Bp Diastoli c Oxygen Saturation Respiration Rate Pulse Rate Body Temp Head Circumference Heigh t Lying 02/13/2021 0.00 295.00 0.00 0 0 0.00 0 0 0.00 0.0 0. 00 Procedures Date Concept Id Description Targeted Site Concept Targeted Site Concept Type 02/13/2021 89558-22 [facility] Telemed E/M Lvl 3--Est pt CPT 02/13/2021 52924-92 Telemed A/O 30" CPT Patient has no history of implantable de vices Encounters Encounter Start Date End Date Encounter Type Description Diagnosis Di agnosis Desc Location Author First Name Author Last Name Npid Taxonomy Cod e Taxonomy Desc Phone Number Location Addr1 Location Addr2 Location [facility] Location Sta te Location [facility] [id number] 02/13/2021 02/13/2021 87911-37 [facility] Telemed E/M Lvl 3--Est p t F31.81 Bipolar II disorder [facility] [id number] Psychiatric/Mental Health [id number] [address] [address] Plan of Treatment No Data in Section Lab Results No Data in Section Instructions No Data in Section Functional Cognitive Status No Data in Section Insurance Providers Insurance Id Policy Effective Date Policy Thru Date Point Inside Daniella davidson [id number] MEDICAID
--- OUTSIDE RECORDS SUMMARY | 2021-02-28 09:41 | CCD | Continuity of Care Document ---
Author Author Jovita SANTACRUZ V P.A. Organization Unknown Address [address] [place] [address] Phone [phone] Care Team Providers Care Job Placement Officer Name Role Phone Amy Perez AUTM [phone] David Champagne MD AUTM [phone] Problems Active Problems Provider Date Backache Onset: 11/07/2020 Disorder of lumbar disc Onset: Intrauterine contraceptive device in situ Onset: 06/11/2017 Jaw pain Onset: 04/26/2018 Paresthesia of hand Onset: 11/07/2020 Lumbar radiculopathy Onset: 05/07/2020 Neck pain Onset: 11/07/2020 Pain in pelvis Onset: 06/11/2017 Otitis media Onset: 04/26/2018 Shoulder pain Onset: 02/10/2017 Toothache Onset: 08/10/2020 Social History Type Date Description Comments Sex Unknown Allergies, Adverse Reactions, Alerts Description No Information Available Medications Active Medications SIG Qnty Indications Ordering Provide r Date Medrol 4mg Tablets dose young, take as directed on sheet 1tabs M51.37 Erlin Martinez MD 11/27/2020 Cyclobenzaprine HCL 10mg Tablets Three Times A Day as needed for Muscle Spasms 15tabs Unknown 11/07/2020 Amoxicillin/Clavulanate Potassium 875-125mg Tablets Twice A Day 20tabs Unknown 08/10/2020 Gabapentin 600mg Tablets Take 1 Tablet By Mouth Three Times Daily. Maximum Daily Dose Is 3 90tabs M51.36 Alexx Beasley MD 08/07/2020 Acetaminophen ER 650mg Tablets ER Three Times A Day 63tabs Unknown Gabapentin 300mg Capsules Three Times A Day Unknown Mirena (52 MG) 20mcg/24HR IUD Unknown Quetiapine Fumarate ER 150mg Tablets ER 24HR Daily At Bedtime Unknown Quetiapine Fumarate 400mg Tablets Every Evening 30tabs Unknown Immunizations Description No Information Available Vital Signs Date Vital Result Comment 06/06/2020 3:50pm Body Temperature 97.1 F Height 65.5 inches 5'5.50" Weight 274.50 lb BMI (Body Mass Index) 45.0 kg/m2 Results Test Acquired Date Facility Test Result H/L Range Note Lab Results 11/07/2020 N2N/CCD Import Urine Appearance Hazy Clear Urine Color Yellow Yellow Urine pH 6.0 5.0-9.0 Urine Specific [place] 1.017 1.002-1.035 Urine Protein Negative Negative Urine Glucose (Ua) Negative Negative Urine Ketones Negative Negative Urine Urobilinogen 0.2 0.0-2.0 Urine Bilirubin Negative Negative Urine Nitrite Negative Negative Urine Leukocyte Esterase Negative Negative Urine Blood Negative Negative Urine WBC (Auto) 1 0-3 Urine RBC (Auto) 1 0-3 Urine Bacteria (Auto) Negative Negative Urine Squamous Epithelial Cells 9 0-6 Urine Mucus (Auto) Small Negative Urine Hyaline Casts (Auto) 0 0-1 Serum or plasma cholesterol in LDL measurement by 09/21/2020 N2N/CCD Import Serum or plasma cholesterol in LDL measurement by calc ulation (mass/volume) 56 <100 Ast SerPl-cCnc 09/21/2020 N2N/CCD Import Ast SerPl-cCnc 13 7-37 Alt SerPl-cCnc 09/21/2020 N2N/CCD Import Alt SerPl-cCnc 31 12-78 Alp SerPl-cCnc 09/21/2020 N2N/CCD Import Alp SerPl-cCnc 90 45-117 Bilirub SerPl-mCnc 09/21/2020 N2N/CCD Import Bilirub SerPl-mCnc 0.5 0.2-1.0 Bilirub Direct SerPl-mCnc 09/21/2020 N2N/CCD Import Bilirub Direct SerPl-mCnc 0.2 0.0-0.2 Trigl SerPl-mCnc 09/21/2020 N2N/CCD Import Trigl SerPl-mCnc 110 <150 Cholest SerPl-mCnc 09/21/2020 N2N/CCD Import Cholest SerPl-mCnc 126 <200 HDLc SerPl-mCnc 09/21/2020 N2N/CCD Import HDLc SerPl-mCnc 48 >40 Calcium SerPl-sCnc 09/21/2020 N2N/CCD Import Calcium SerPl-sCnc 9.0 8.5-10.1 NonHDLc SerPl-mCnc 09/21/2020 N2N/CCD Import NonHDLc SerPl-mCnc 78 Cholest/HDLc SerPl 09/21/2020 N2N/CCD Import Cholest/HDLc SerPl 2.625 <5 Prot SerPl-mCnc 09/21/2020 N2N/CCD Import Prot SerPl-mCnc 7.1 6.4-8.2 Albumin SerPl-mCnc 09/21/2020 N2N/CCD Import Albumin SerPl-mCnc 3.9 3.2-5.2 Lab Results 09/21/2020 N2N/CCD Import Albumin/Globulin Ratio 1.2 1.2-2.2 HbA1c MFr Bld 09/21/2020 N2N/CCD Import HbA1c MFr Bld 5.6 Est. average glucose Bld gHb Est-mCnc 09/21/2020 N2 N/CCD Import Est. average glucose Bld gHb Est-mCnc 114 60- 110 Serum or plasma thyrotropin measurement by detecti N2N/CCD Import Serum or plasma thyrotropin measurement by detection limit <= 0.005 miu/l (units/volume) 1.560 0.358-3.740 Deprecated Cyanocobalamin.true Ser-mCnc 09/21/2020 N2N/CCD Import Deprecated Cyanocobalamin.true Ser-mCnc 21.1 3 0.0-100.0 Serum or plasma glucose measurement (mass/volume) 09/21/2020 N2N/CCD Import Serum or plasma glucose measurement (mass/volume) 102 70-100 WBC # Bld Auto 09/21/2020 N2N/CCD Import WBC # Bld Auto 10.2 4.0-10.0 Hgb Bld-mCnc 09/21/2020 N2N/CCD Import Hgb Bld-mCnc 14.8 12.0-15.5 Hct VFr Bld Auto 09/21/2020 N2N/CCD Import Hct VFr Bld Auto 41.0 36.0-47.0 MCV RBC Auto 09/21/2020 N2N/CCD Import MCV RBC Auto 84.2 80.0-96.0 MCH RBC Qn Auto 09/21/2020 N2N/CCD Import MCH RBC Qn Auto 30.4 27.0-33.0 Automated erythrocyte mean corpuscular hemoglobin 09/21/2020 N2N/CCD Import Automated erythrocyte mean corpuscular h emoglobin concentration measurement (mass/volume) 36.1 32.0-36.5 Automated erythrocyte distribution width ratio 09/21/2020 N2N/CCD Import Automated erythrocyte distribution width ratio 12.7 11.5-14.5 Platelet # Bld Auto 09/21/2020 N2N/CCD Import Platelet # Bld Auto 268 150-450 nRBC/100 WBC Bld Auto-Rto 09/21/2020 N2N/CCD Import nRBC/100 WBC Bld Auto-Rto 0.0 0-0 Phosphate SerPl-mCnc 09/21/2020 N2N/CCD Import Phosphate SerPl-mCnc 3.3 2.5-4.9 BUN SerPl-mCnc 09/21/2020 N2N/CCD Import BUN SerPl-mCnc 13 7-18 Serum or plasma creatinine measurement (mass/volum N2N/CCD Import Serum or plasma creatinine measurement (mass/volume) 0.91 0.55-1.30 GFR/Bsa.pred SerPl MDRD-ArVRat 09/21/2020 N2N/CCD I mport GFR/Bsa.pred SerPl MDRD-ArVRat > 60.0 >60 Sodium SerPl-sCnc 09/21/2020 N2N/CCD Import Sodium SerPl-sCnc 141 136-145 Potassium SerPl-sCnc 09/21/2020 N2N/CCD Import Potassium SerPl-sCnc 4.3 3.5-5.1 Chloride SerPl-sCnc 09/21/2020 N2N/CCD Import Chloride SerPl-sCnc 111 98-107 Co2 SerPl-sCnc 09/21/2020 N2N/CCD Import Co2 SerPl-sCnc 24 21-32 Anion Gap3 SerPl-sCnc 09/21/2020 N2N/CCD Import Anion Gap3 SerPl-sCnc 6 8-16 Procedures Date Code Description Status 11/27/2020 13649 Office/Outpatient Established Mo d MDM 30-39 Min Completed 10/03/2020 51454 Office/Outpatient Established Lo w MDM 20-29 Min Completed 08/23/2020 92458 Duplex Scan Arterial Inflow/Venous Outflow Abd/Pelv/Retroper LTD Completed 08/23/2020 47134 Echography Pelvic Complete Compl eted 08/23/2020 55619 Echography Transvaginal Complete d 08/10/2020 10352 Emergency Dept Visit Level 3 Com pleted 08/10/2020 55077 Injec Therapeutic Or Diagnostic Subcut Or Intramuscular Completed 08/07/2020 14994 Office/Outpatient Established Mo d MDM 30-39 Min Completed Medical Devices Description No Information Available Encounters Type Date Location Provider Dx Diagnosis Office Visit 11/27/2020 5:[facility]p [facility] 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 01/08/2021 M47.817 Spondylosis without myelopathy or radiculopathy, lumbosacral region Neal Santacruz, PLaurieA. 11/27/2020 M51.37 Other intervertebral disc degene ration, lumbosacral region Neal Santacruz, P.A. 11/27/2020 M47.817 Spondylosis without myelopathy or radiculopathy, lumbosacral region Neal Santacruz, P.A. 10/03/2020 M51.37 Other intervertebral disc degene ration, lumbosacral region Neal Santacruz, P.A. 10/03/2020 M47.817 Spondylosis without myelopathy or radiculopathy, lumbosacral region Neal Santacruz, P.A. 08/07/2020 M51.37 Other intervertebral disc degene ration, lumbosacral region DEBRA Wheeler 08/07/2020 M47.817 Spondylosis without myelopathy or radiculopathy, lumbosacral region DEBRA Wheeler Plan of Treatment 01/08/2021 - Neal Santacruz, P.A.* M51.37 Other intervertebral disc degeneration, lumbosacral region* Follow up:* 4-5 week l-s spine recheck w/GA * M47.817 Spondylosis without myelopathy or radiculopathy, lumbosacral region Functional Status Description No Information Available Mental Status Description No Information Available Referrals Refer to Reason for Referral Status Appt Date Neal Santacruz PA MRI Lumbar Spine 48528 auth approved by Bre Best passed to [facility] to schedule sw. Created [address] [place] [address] [place] [address] [phone]
--- OUTSIDE RECORDS SUMMARY | 2021-02-28 09:41 | CCD | Continuity of Care Document ---
Author Author Jovita SANTACRUZ V P.A. Organization Unknown Address [address] [place] [address] Phone [phone] Care Team Providers Care Body Coverer Name Role Phone Amy Perez AUTM [phone] David Champagne MD AUTM [phone] Problems Active Problems Provider Date Backache Onset: [...] Yellow Urine pH 6.0 5.0-9.0 Urine Specific [place] 1.017 1.002-1.035 Urine Protein Negative Negative Urine [...] 6 8-16 Procedures Date Code Description Status 01/08/2021 17966 Office/Outpatient Established Lo w MDM 20-29 Min Completed 11/27/2020 59735 Office/Outpatient Established Mo d MDM 30-39 Min Completed 10/03/2020 80930 Office/Outpatient Established Lo w MDM 20-29 Min Completed 08/23/2020 35771 Duplex Scan Arterial Inflow/Venous Outflow Abd/Pelv/Retroper LTD Completed 08/23/2020 04991 Echography Pelvic Complete Compl eted 08/23/2020 48479 Echography Transvaginal Complete d 08/10/2020 13595 Emergency Dept Visit Level 3 Com pleted 08/10/2020 51863 Injec Therapeutic Or Diagnostic Subcut Or Intramuscular Completed 08/07/2020 67766 Office/Outpatient Established Mo d MDM 30-39 Min Completed Medical Devices Description No Information Available Encounters Type Date Location Provider Dx Diagnosis [facility] 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 01/08/2021 M47.817 Spondylosis without myelopathy or radiculopathy, lumbosacral region Neal Santacruz, P.A. 11/27/2020 M51.37 Other intervertebral disc degene ration, [...] lumbosacral region DEBRA Wheeler Plan of Treatment Future Appointment(s):* 02/06/2021 4:15 pm - [facility] 01/08/2021 - Christian Nix* M51.37 Other intervertebral disc degeneration, lumbosacral region* Follow up:* 4-5 week l-s spine recheck w/GA * M47.817 Spondylosis without myelopathy or radiculopathy, lumbosacral region Functional Status Description No Information Available Mental Status Description No Information Available Referrals Refer to Reason for Referral Status Appt Date Neal Santacruz PA MRI Lumbar Spine 98440 auth approved by Bre carter to bennie to schedule sw. Created [address] [place] [address] [address] [place] [address] [phone]
--- OUTSIDE RECORDS SUMMARY | 2021-02-28 09:41 | CCD ---
Continuity of Care Document (CCD) Created on: 12/06/2020 Jovita Gomez V External Reference #: [id number] : [id number] Sex: Female Author Author Jovita SANTACRUZ V P.A. Organization Unknown Address [address] [place] [address] Phone [phone] Care Team Providers Care Laborer Airport Maintenance Name Role Phone Amy Perez AUTM [phone] David Champagne MD AUTM [phone] Problems Active Problems Provider Date Backache Onset: [...] Take 1 Tablet By Mouth Three Times A Day 90tabs M51.36 Alexx Beasley MD 08/07 Acetaminophen ER 650mg Tablets ER Three Times A Day 63tabs Unknown Gabapentin 300mg Capsules Three Times A Day Unknown Mirena (52 MG) 20mcg/24HR IUD Unknown Quetiapine Fumarate ER 150mg Tablets ER 24HR Daily At Bedtime Unknown Quetiapine Fumarate 400mg Tablets Every Evening 30tabs Unknown History Medications Meloxicam 15mg Tablets 1 by mouth every day with food or milk 30tabs M51.37 Roldan Lopez MD 2020 - 08/06/2020 Gabapentin 300mg Capsules 1 by mouth three times a day 90caps M51.36 Roldan Lopez MD 06/17/2020 - 08/07/2020 Immunizations Description No Information Available Vital Signs Date Vital Result Comment 06/06/2020 3:50pm Body Temperature 97.1 F Height 65.5 inches 5'5.50" Weight 274.50 lb BMI (Body Mass Index) 45.0 kg/m2 Results Test Acquired Date Facility Test Result H/L Range Note Lab Results 11/07/2020 N2N/CCD Import Urine Appearance Hazy Clear Urine Color Yellow Yellow Urine pH 6.0 5.0-9.0 Urine Specific [place] 1.017 1.002-1.035 Urine Protein Negative Negative Urine [...] 8-16 Procedures Date Code Description Status 11/27/2020 99412 Office/Outpatient Established Mo d MDM 30-39 Min Completed 10/03/2020 06217 Office/Outpatient Established Lo w MDM 20-29 Min Completed 08/23/2020 22468 Duplex Scan Arterial Inflow/Venous Outflow Abd/Pelv/Retroper LTD Completed 08/23/2020 95677 Echography Pelvic Complete Compl eted 08/23/2020 69938 Echography Transvaginal Complete d 08/10/2020 63397 Emergency Dept Visit Level 3 Com pleted 08/10/2020 78921 Injec Therapeutic Or Diagnostic Subcut Or Intramuscular Completed 08/07/2020 99155 Office/Outpatient Established Mo d MDM 30-39 Min Completed 07/01/2020 44690 Therapeutic Procedure, Each 15 M inutes Completed 07/01/2020 24395 Hot Or Cold Packs Completed 06/17/2020 14173 Office/Outpatient Established Mo d MDM 30-39 Min Completed 06/17/2020 93490 Physical Therapy Eval - Low Comp lexity Completed 06/17/2020 53285 Therapeutic Procedure, Each 15 M inutes Completed 06/17/2020 81639 Hot Or Cold Packs Completed Medical Devices Description No Information Available Encounters Type Date Location Provider Dx Diagnosis Office Visit 11/27/2020 5:30p [facility] Santacruz, P.A. 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, lumbosacr region Assessments Date Code Description Provider 11/27/2020 M51.37 Other intervertebral disc degene ration, [...] myelopathy or radiculopathy, lumbosacral region DEBRA Wheeler 06/17/2020 M51.37 Other intervertebral disc degene ration, lumbosacral region DEBRA Wheeler 06/17/2020 M47.817 Spondylosis without myelopathy or radiculopathy, lumbosacral region DEBRA Wheeler Plan of Treatment 11/27/2020 - Neal Santacruz, P.A.* M51.37 Other intervertebral disc degeneration, lumbosacral region* New Medication:* Medrol 4 mg - dose young, take as directed on sheet * New Xrays:* MRI Lumbar Spine, Ordered: 11/27/20 * Follow up:* with [facility] for lumbar mri results * M47.817 Spondylosis without myelopathy or radiculopathy, lumbosacral region Functional Status Description No Information Available Mental Status Description No Information Available Referrals Description No Information Available
--- OUTSIDE RECORDS SUMMARY | 2021-02-28 09:42 | CCD ---
Author Author [facility] Organization [facility] Address Unknown Phone Unavailable Care Team Providers Care Naval Architect Name Role Phone Delia Champagne MD Unavailable Unavailable Delia Champagne MD Unavailable Unavailable Delia Champagne MD Unavailable Unavailable Delia Champagne MD Unavailable Unavailable Delia Champagne MD Unavailable Unavailable Delia Champagne MD Unavailable Unavailable Delia Champagne MD Unavailable Unavailable Delia Champagne MD Unavailable Unavailable Delia Champagne MD Unavailable Unavailable Delia Champagne MD Unavailable Unavailable Delia Champagne MD Unavailable Unavailable Delia Champagne MD Unavailable Unavailable Delia Champagne MD Unavailable Unavailable Delia Champagne MD Unavailable Unavailable Delia Champagne MD Unavailable Unavailable Delia Champagne MD Unavailable Unavailable Delia Champagne MD Unavailable Unavailable Delia Champagne MD Unavailable Unavailable Delia Champagne MD Unavailable Unavailable Delia Champagne MD Unavailable Unavailable Delia Champagne MD Unavailable Unavailable Delia Champagne MD Unavailable Unavailable Delia Champagne MD Unavailable Unavailable Delia Champagne MD Unavailable Unavailable Delia Champagne MD Unavailable Unavailable Delia Champagne MD Unavailable Unavailable Delia Champagne MD Unavailable Unavailable Delia Champagne MD Unavailable Unavailable Delia Champagne MD Unavailable Unavailable Delia Champagne MD Unavailable Unavailable Delia Champagne MD Unavailable Unavailable Delia Champagne MD Unavailable Unavailable Delia Champagne MD Unavailable Unavailable Delia Champagne MD Unavailable Unavailable Delia Champagne MD Unavailable Unavailable Delia Champagne MD Unavailable Unavailable Delia Champagne MD Unavailable Unavailable Delia Champagne MD Unavailable Unavailable Delia Champagne MD Unavailable Unavailable Delia Champagne MD Unavailable Unavailable Delia Champagne MD Unavailable Unavailable Delia Champagne MD Unavailable Unavailable Delia Champagne MD Unavailable Unavailable Delia Champagne MD Unavailable Unavailable Delia Champagne MD Unavailable Unavailable Delia Champagne MD Unavailable Unavailable Delia Champagne MD Unavailable Unavailable Delia Champagne MD Unavailable Unavailable Delia Chapmagne MD Unavailable Unavailable Delia Champagne MD Unavailable Unavailable Delia Champagne MD Unavailable Unavailable Delia Champagne MD Unavailable Unavailable Delia Champagne MD Unavailable Unavailable Delia Champagne MD Unavailable Unavailable Delia Champagne MD Unavailable Unavailable Delia Champagne MD Unavailable Unavailable Delia Champagne MD Unavailable Unavailable Delia Champagne MD Unavailable Unavailable Delia Champagne MD Unavailable Unavailable Delia Champagne MD Unavailable Unavailable Delia Champagne MD Unavailable Unavailable Delia Champagne MD Unavailable Unavailable Delia Champagne MD Unavailable Unavailable Delia Champagne MD Unavailable Unavailable Delia Champagne MD Unavailable Unavailable Delia Champagne MD Unavailable Unavailable Delia Champagne MD Unavailable Unavailable Delia Champagne MD Unavailable Unavailable Delia Champagne MD Unavailable Unavailable Delia Champagne MD Unavailable Unavailable Delia Champagne MD Unavailable Unavailable Delia Champagne MD Unavailable Unavailable Delia Champagne MD Unavailable Unavailable Delia Champagne MD Unavailable Unavailable Delia Champagne MD Unavailable Unavailable Delia Champagne MD Unavailable Unavailable Delia Champagne MD Unavailable Unavailable Delia Champagne MD Unavailable Unavailable Delia Champagne MD Unavailable Unavailable Delia Champagne MD Unavailable Unavailable Delia Champagne MD Unavailable Unavailable Delia Champagne MD Unavailable Unavailable Delia Champagne MD Unavailable Unavailable Delia Champagne MD Unavailable Unavailable Delia Champagne MD Unavailable Unavailable Delia Champagne MD Unavailable Unavailable Delia Champagne MD Unavailable Unavailable Delia Champagne MD Unavailable Unavailable Delia Champagne MD Unavailable Unavailable Delia Champagne MD Unavailable Unavailable Delia Champagne MD Unavailable Unavailable Delia Champagne MD Unavailable Unavailable Delia Champagne MD Unavailable Unavailable MCELHERAN, TRISHA PA Unavailable Unavailable MCELHERAN, TRISHA PA Unavailable Unavailable MCELHERAN, TRISHA PA Unavailable Unavailable MCELHERAN, TRISHA PA Unavailable Unavailable MCELHERAN, TRISHA PA Unavailable Unavailable MCELHERAN, TRISHA PA Unavailable Unavailable MCELHERAN, TRISHA PA Unavailable Unavailable MCELHERAN, TRISHA PA Unavailable Unavailable MCELHERAN, TRISHA PA Unavailable Unavailable MCELHERAN, TRISHA PA Unavailable Unavailable MCELHERAN, TRISHA PA Unavailable Unavailable MCELHERAN, TRISHA PA Unavailable Unavailable MCELHERAN, TRISHA PA Unavailable Unavailable MCELHERAN, TRISHA PA Unavailable Unavailable MCELHERAN, TRISHA PA Unavailable Unavailable MCELHERAN, TRISHA PA Unavailable Unavailable MCELHERAN, TRISHA PA Unavailable Unavailable MCELHERAN, TRISHA PA Unavailable Unavailable MCELHERAN, TRISHA PA Unavailable Unavailable MCELHERAN, TRISHA PA Unavailable Unavailable MCELHERAN, TRISHA PA Unavailable Unavailable MCELHERAN, TRISHA PA Unavailable Unavailable MCELHERAN, TRISHA PA Unavailable Unavailable MCELHERAN, TRISHA PA Unavailable Unavailable MCELHERAN, TRISHA PA Unavailable Unavailable MCELHERAN, TRISHA PA Unavailable Unavailable MCELHERAN, TRISHA PA Unavailable Unavailable MCELHERAN, TRISHA PA Unavailable Unavailable MCELHERAN, TRISHA PA Unavailable Unavailable Beasley, Mariama Coffey MD Unavailable Unavailable Beasley, Mariama Coffey MD Unavailable Unavailable Beasley, Mariama Coffey MD Unavailable Unavailable Beasley, Mariama Coffey MD Unavailable Unavailable Beasley, Mariama Coffey MD Unavailable Unavailable Beasley, Mariama Coffey MD Unavailable Unavailable Beasley, Mraiama Coffey MD Unavailable Unavailable BeasleyMariama courtney MD Unavailable Unavailable Beasley, Mariama Coffey MD Unavailable Unavailable BesaleyMariama MD Unavailable Unavailable BeasleyMariama MD Unavailable Unavailable BeasleyMariama MD Unavailable Unavailable Beasley, Mariama Coffey MD Unavailable Unavailable Beasley, Mariama Coffey MD Unavailable Unavailable BeasleyMariama MD Unavailable Unavailable BeasleyMariama MD Unavailable Unavailable BeasleyMariama MD Unavailable Unavailable BeasleyMariama MD Unavailable Unavailable BeasleyMariama MD Unavailable Unavailable BeasleyMariama MD Unavailable Unavailable BeasleyMariama MD Unavailable Unavailable Beasley, Mariama Coffey MD Unavailable Unavailable Beasley, Mariama Coffey MD Unavailable Unavailable BeasleyMariama MD Unavailable Unavailable BeasleyMariama courtney MD Unavailable Unavailable Beasley, Mariama Coffey MD Unavailable Unavailable Beasley, Mariama Coffey MD Unavailable Unavailable Beasley, Mariama Coffey MD Unavailable Unavailable Beasley, Mariama Coffey MD Unavailable Unavailable Beasley, Mariama Coffey MD Unavailable Unavailable Beasley, Mariama Coffey MD Unavailable Unavailable Beasley, Mariama Coffey MD Unavailable Unavailable Beasley, Mariama Coffey MD Unavailable Unavailable Beasley, Mariama Coffey MD Unavailable Unavailable Beasley, Mariama Coffey MD Unavailable Unavailable Beasley, Mariama Coffey MD Unavailable Unavailable Beasley, Mariama Coffey MD Unavailable Unavailable Beasley, Mariama Coffey MD Unavailable Unavailable Beasley, Mariama Coffey MD Unavailable Unavailable Beasley, Mariama Coffey MD Unavailable Unavailable Beasley, Mariama Coffey MD Unavailable Unavailable Beasley, Mariama Coffey MD Unavailable Unavailable Beasley, Mariama Coffey MD Unavailable Unavailable Beasley, Mariama Coffey MD Unavailable Unavailable Beasley, Mariama Coffey MD Unavailable Unavailable Beasley, Mariama Coffey MD Unavailable Unavailable Beasley, Mariama Coffey MD Unavailable Unavailable Beasley, Mariama Coffey MD Unavailable Unavailable Beasley, Mariama Coffey MD Unavailable Unavailable Beasley, Mariama Coffey MD Unavailable Unavailable [facility] Unavailable Scordo, M Amy PA Unavailable Unavailable Scordo, M Amy PA Unavailable Unavailable Scordo, M Amy PA Unavailable Unavailable Scordo, M Amy PA Unavailable Unavailable Scordo, M Amy PA Unavailable Unavailable Scordo, M Amy PA Unavailable Unavailable Scordo, M Amy PA Unavailable Unavailable Scordo, M Amy PA Unavailable Unavailable Scordo, M Amy PA Unavailable Unavailable Scordo, M Amy PA Unavailable Unavailable Scordo, M Amy PA Unavailable Unavailable Scordo, M Amy PA Unavailable Unavailable Scordo, M Amy PA Unavailable Unavailable Scordo, M Amy PA Unavailable Unavailable Scordo, M Amy PA Unavailable Unavailable Scordo, M Amy PA Unavailable Unavailable Scordo, M Amy PA Unavailable Unavailable Scordo, M Amy PA Unavailable Unavailable Scordo, M Amy PA Unavailable Unavailable Scordo, M Amy PA Unavailable Unavailable Scordo, M Amy PA Unavailable Unavailable Scordo, M Amy PA Unavailable Unavailable Scordo, M Amy PA Unavailable Unavailable Scordo, M Amy PA Unavailable Unavailable Scordo, M Amy PA Unavailable Unavailable Scordo, M Amy PA Unavailable Unavailable Scordo, M Amy PA Unavailable Unavailable Scordo, M Amy PA Unavailable Unavailable Scordo, M Amy PA Unavailable Unavailable Scordo, M Amy PA Unavailable Unavailable Scordo, M Amy PA Unavailable Unavailable Scordo, M Amy PA Unavailable Unavailable Scordo, M Amy PA Unavailable Unavailable Scordo, M Amy PA Unavailable Unavailable Scordo, M Amy PA Unavailable Unavailable Scordo, M Amy PA Unavailable Unavailable Scordo, M Amy PA Unavailable Unavailable Scordo, M Amy PA Unavailable Unavailable Scordo, M Amy PA Unavailable Unavailable Scordo, M Amy PA Unavailable Unavailable Scordo, M Amy PA Unavailable Unavailable Scordo, M Amy PA Unavailable Unavailable Scordo, M Amy PA Unavailable Unavailable Scordo, M Amy PA Unavailable Unavailable Scordo, M Amy PA Unavailable Unavailable Scordo, M Amy PA Unavailable Unavailable Scordo, M Amy PA Unavailable Unavailable MACQUEEN, SONIYA HIGHWAY RESEARCH ENGINEER Unavailable Unavailable MACQUEEN, SONIYA HIGHWAY RESEARCH ENGINEER Unavailable Unavailable MACQUEEN, SONIYA HIGHWAY RESEARCH ENGINEER Unavailable Unavailable MACQUEEN, SONIYA HIGHWAY RESEARCH ENGINEER Unavailable Unavailable MACQUEEN, SONIYA HIGHWAY RESEARCH ENGINEER Unavailable Unavailable MACQUEEN, SONIYA HIGHWAY RESEARCH ENGINEER Unavailable Unavailable MACQUEEN, SONIYA HIGHWAY RESEARCH ENGINEER Unavailable Unavailable MACQUEEN, SONIYA HIGHWAY RESEARCH ENGINEER Unavailable Unavailable MACQUEEN, SONIYA HIGHWAY RESEARCH ENGINEER Unavailable Unavailable MACQUEEN, SONIYA HIGHWAY RESEARCH ENGINEER Unavailable Unavailable EGORHO, F LUMA FPMHNP Unavailable Unavailable EGORHO, F LUMA FPMHNP Unavailable Unavailable EGORHO, F LUMA FPMHNP Unavailable Unavailable EGORHO, F LUMA FPMHNP Unavailable Unavailable EGORHO, F LUMA FPMHNP Unavailable Unavailable EGORHO, F LUMA FPMHNP Unavailable Unavailable EGORHO, F LUMA FPMHNP Unavailable Unavailable EGORHO, F LUMA FPMHNP Unavailable Unavailable Scordo, M Amy PA Unavailable Unavailable Scordo, M Amy PA Unavailable Unavailable Scordo, M Amy PA Unavailable Unavailable Scordo, M Amy PA Unavailable Unavailable Scordo, M Amy PA Unavailable Unavailable Scordo, M Amy PA Unavailable Unavailable Scordo, M Amy PA Unavailable Unavailable Scordo, M Amy PA Unavailable Unavailable Scordo, M Amy PA Unavailable Unavailable Scordo, M Amy PA Unavailable Unavailable Scordo, M Amy PA Unavailable Unavailable Scordo, M Amy PA Unavailable Unavailable Scordo, M Amy PA Unavailable Unavailable Scordo, M Amy PA Unavailable Unavailable Scordo, M Amy PA Unavailable Unavailable Scordo, M Amy PA Unavailable Unavailable Scordo, M Amy PA Unavailable Unavailable Scordo, M Amy PA Unavailable Unavailable Scordo, M Amy PA Unavailable Unavailable Scordo, M Amy PA Unavailable Unavailable Scordo, M Amy PA Unavailable Unavailable Scordo, M Amy PA Unavailable Unavailable Scordo, M Amy PA Unavailable Unavailable Scordo, M Amy PA Unavailable Unavailable Scordo, M Amy PA Unavailable Unavailable Scordo, M Amy PA Unavailable Unavailable Scordo, M Amy PA Unavailable Unavailable Scordo, M Amy PA Unavailable Unavailable Scordo, M Amy PA Unavailable Unavailable Scordo, M Amy PA Unavailable Unavailable Scordo, M Amy PA Unavailable Unavailable Scordo, M Amy PA Unavailable Unavailable Scordo, M Amy PA Unavailable Unavailable Scordo, M Amy PA Unavailable Unavailable Scordo, M Amy PA Unavailable Unavailable Scordo, M Amy PA Unavailable Unavailable Scordo, M Amy PA Unavailable Unavailable Scordo, M Amy PA Unavailable Unavailable Scordo, M Amy PA Unavailable Unavailable Scordo, M Amy PA Unavailable Unavailable Scordo, M Amy PA Unavailable Unavailable Scordo, M Amy PA Unavailable Unavailable Scordo, M Amy PA Unavailable Unavailable Scordo, M Amy PA Unavailable Unavailable Scordo, M Amy PA Unavailable Unavailable Scordo, M Amy PA Unavailable Unavailable Scordo, M Amy PA Unavailable Unavailable CRISTI, M CYNTHIA PA Unavailable Unavailable CRISTI, M CYNTHIA PA Unavailable Unavailable CRISTI, M CYNTHIA PA Unavailable Unavailable CRISTI, M CYNTHIA PA Unavailable Unavailable CRISTI, M CYNTHIA PA Unavailable Unavailable CRISTI, M CYNTHIA PA Unavailable Unavailable CRISTI, M CYNTHIA PA Unavailable Unavailable CRISTI, M CYNTHIA PA Unavailable Unavailable CRISTI, M CYNTHIA PA Unavailable Unavailable CRISTI, M CYNTHIA PA Unavailable Unavailable CRISTI, M CYNTHIA PA Unavailable Unavailable CRISTI, M CYNTHIA PA Unavailable Unavailable CRISTI, M CYNTHIA PA Unavailable Unavailable CRISTI, M CYNTHIA PA Unavailable Unavailable CRISTI, M CYNTHIA PA Unavailable Unavailable CRISTI, M CYNTHIA PA Unavailable Unavailable CRISTI, M CYNTHIA PA Unavailable Unavailable CRISTI, M CYNTHIA PA Unavailable Unavailable CRISTI, M CYNTHIA PA Unavailable Unavailable CRISTI, M CYNTHIA PA Unavailable Unavailable CRISTI, M CYNTHIA PA Unavailable Unavailable CRISTI, M CYNTHIA PA Unavailable Unavailable CRISTI, M CYNTHIA PA Unavailable Unavailable Gisele COLIN Unavailable Unavailable Re-disclosure Warning The records that you are about to access may contain information from federally-assisted alcohol or drug abuse programs. If such information is present, then the following federally mandated warning applies: This information has been disclosed to you from records protected by federal confidentiality rules (42 CFR part 2). The federal rules prohibit you from making any further disclosure of this information unless further disclosure is expressly permitted by the written consent of the person to whom it pertains or as otherwise permitted by 42 CFR part 2. A general authorization for the release of medical or other information is NOT sufficient for this purpose. The Federal rules restrict any use of the information to criminally investigate or prosecute any alcohol or drug abuse patient.The records that you are about to access may contain highly sensitive health information, the redisclosure of which is protected by Article 27-F of the [facility] Public Health law. If you continue you may have access to information: Regarding HIV / AIDS; Provided by facilities licensed or operated by the [facility] Office of Mental Health; or Provided by the [facility] Office for People With Developmental Disabilities. If such information is present, then the following [facility] mandated warning applies: This information has been disclosed to you from confidential records which are protected by state law. State law prohibits you from making any further disclosure of this information without the specific written consent of the person to whom it pertains, or as otherwise permitted by law. Any unauthorized further disclosure in violation of state law may result in a fine or snf sentence or both. A general authorization for the release of medical or other information is NOT sufficient authorization for further disc losure. Allergies and Adverse Reactions Type Description Substance Reaction Status Data Source(s ) Miscellaneous allergy LATEX LATEX [facility] Family History Family Member Name Family Member Gender Family Member Status Date o f Status Description Data Source(s) Unknown Unknown Problem [facility] ([facility]) Encounters Encounter Providers Location Date Indications Data Source(s ) Outpatient Attender: SONIYA WALDEN NP [facility] Juma beltran 02/13/2021 11:30:00 AM EDT - 02/13/2021 11:30:00 AM EDT [facility] ([facility]) Attender: SONIYA WALDEN NP 02/13/2021 12:00:00 AM EDT [facility] ([facility]) David Champagne MD: [address] [place] [phone], Ph. Attender: David Champagne MD [facility] Medical 02/12/2021 12:00:00 AM EDT [facility] ([facility]) OFFICE OUTPATIENT VISIT 15 MINUTES Attender: TRISHA BANKS PA Physical Therapy 01/08/2021 08:45:00 AM EDT [facility] ([facility]) Outpatient Attender: TRISHA RICHARDSON Physical Therapy 11/27/2020 05:30:00 PM EDT [facility] ([facility]) David Champagne MD: [address] [place] [phone], Ph. Attender: David Champagne MD [facility] Medical 11/27/2020 12:00:00 AM EDT [facility] ([facility]) David Champagne MD: [address] [place] [place] [phone], Ph. Attender: David Champagne MD [facility] Medical 11/27/2020 12:00:00 AM EDT [facility] ([facility]) Psychiatric Diagnostic Evaluation (Non-Medical) Attender: Christiano Liriano [facility] Belen 11/21/2020 04:00:00 AM EDT - 11/21/2020 04:00:00 AM EDT [facility] ([facility]) Attender: Joey Liriano 11/21/2020 12:00:00 AM EDT [facility] ([facility]) Outpatient Attender: SONIYA WALDEN NP [facility] Juma beltran 10/30/2020 01:00:00 AM EDT - 10/30/2020 01:00:00 AM EDT [facility] ([facility]) Attender: SONIYA WALDEN NP 10/30/2020 12:00:00 AM EDT [facility] ([facility]) Outpatient Attender: SONIYA WALDEN NP [facility] 10/16/2020 03:00:00 AM EDT - 10/16/2020 03:00:00 AM EDT [facility] ([facility]) Attender: SONIYA WALDEN NP 10/16/2020 12:00:00 AM EDT [facility] ([facility]) OFFICE OUTPATIENT VISIT 15 MINUTES Attender: TRISHA RICHARDSON Physical Therapy 10/03/2020 03:45:00 PM EDT [facility] ([facility]) Outpatient Attender: SONIYA WALDEN NP [facility] 2020 09:30:00 AM EDT - 2020 09:30:00 AM EDT [facility] ([facility]) Attender: SONIYA WALDEN NP 2020 12:00:00 AM EDT [facility] ([facility]) Outpatient Attender: CYNTHIA RICHARDSON Physical Therapy 10/2020 03:15:00 PM EDT [facility] ([facility]) Outpatient Attender: CYNTHIA RICHARDSON Physical Therapy 06/03 04:00:00 PM EST [facility] ([facility]) Outpatient Attender: Aelxx Beasley MD Physical Therapy 06/06/2020 0 1:30:00 PM EST [facility] ([facility]) Outpatient Attender: SONIYA WALDEN NP [facility] 05/30/2020 11:00:00 AM EST - 05/30/2020 11:00:00 AM EST [facility] ([facility]) Attender: SONIYA WALDEN NP 05/30/2020 12:00:00 AM EST [facility] ([facility]) SAPPIHRE ThompsonC: [address] [place] [phone], Ph. Attender: Amy SANTILLAN - [facility] Medical 05/20/2020 12:00:00 AM EST [facility] ([facility]) Amy Perez PA-C: [address] , [place] [phone], Ph. Attender: Amy RICHARDSON [facility] Medical 05/20/2020 12:00:00 AM EST [facility] ([facility]) Amy Perez PA-C: [address] [place] [phone], Ph. Attender: Amy RICHARDSON [facility] Medical 05/20/2020 12:00:00 AM EST [facility] ([facility]) Outpatient Attender: LUMA BRICEÑO [facility] 04/16/2020 09:30:00 AM EST - 04/16/2020 09:30:00 AM EST [facility] ([facility]) Attender: LUMA BRICEÑO [facility] 04/16/2020 12:00: 00 AM EST [facility] ([facility]) David Champagne MD: [address] [place] [phone], Ph. Attender: David Champagne MD [facility] Medical 04/10/2020 12:00:00 AM EST [facility] ([facility]) David Champagne MD: [address] [place] [phone], Ph. Attender: David Champagne MD [facility] Medical 04/10/2020 12:00:00 AM EST [facility] ([facility]) David Champagne MD: [address] [place] [phone], Ph. Attender: David Champagne MD [facility] Medical 04/10/2020 12:00:00 AM EST [facility] ([facility]) David Champagne MD: [address] [place] [phone], Ph. Attender: David Champagne MD [facility] Medical 04/10/2020 12:00:00 AM EST [facility] ([facility]) Outpatient Attender: Amy RICHARDSON 03/13/2020 08:52:01 AM EST [facility] David Champagne MD: [address] [place] [phone], Ph. Attender: David Champagne MD [facility] Medical 03/13/2020 12:00:00 AM EST [facility] ([facility]) David Champagne MD: [address] [place] [phone], Ph. Attender: David Champagne MD [facility] Medical 03/13/2020 12:00:00 AM EST [facility] ([facility]) David Champagne MD: [address] [place] [phone], Ph. Attender: David Champagne MD [facility] Medical 03/13/2020 12:00:00 AM EST [facility] ([facility]) David Champagne MD: [address] [place] [phone], Ph. Attender: David Champagne MD [facility] Medical 03/13/2020 12:00:00 AM EST [facility] ([facility]) David Champagne MD: [address] [place] [phone], Ph. Attender: David Champgane MD [facility] Medical 03/13/2020 12:00:00 AM EST [facility] ([facility]) Outpatient Attender: LUMA MCBRIDESEBASTIAN [facility] 03/12/2020 10:00:00 AM EST - 03/12/2020 10:00:00 AM EST [facility] ([facility]/12/[facility] 12:00: 00 AM EST [facility] ([facility]) Outpatient Attender: Amy RICHARDSON FP 02/16/2020 04:01:00 PM EDT [facility] Outpatient Attender: Amy RICHARDSON FP 02/14/2020 09:59:01 AM EDT [facility] Outpatient Attender: Aym RICHARDSON FP 02/14/2020 09:07:00 AM EDT [facility] Outpatient Attender: Amy RICHARDSON FP 02/14/2020 08:16:03 AM EDT [facility] Outpatient Attender: Amy RICHARDSON FP 02/14/2020 08:16:02 AM EDT [facility] Outpatient Attender: Amy RICHARDSON FP 02/14/2020 08:15:03 AM EDT [facility] Outpatient Attender: Amy RICHARDSON FP 02/14/2020 12:00:09 AM EDT [facility] Outpatient Attender: Amy RICHARDSON FP 02/13/2020 03:12:02 PM EDT [facility] Outpatient Attender: Amy RICHARDSON FP 02/13/2020 03:11:01 PM EDT [facility] Outpatient Attender: LUMA MCBRIDESEBASTIAN [facility] ail 02/13/2020 09:00:00 AM EDT - 02/13/2020 09:00:00 AM EDT [facility] ([facility]) Attender: LUMA MCBRIDESEBASTIAN 02/13/2020 12:00: 00 AM EDT [facility] ([facility]) Outpatient Attender: Amy RICHARDSON FP 01/30/2020 01:11:02 PM EDT [facility] Outpatient Attender: Amy RICHARDSON FP 01/03/2020 09:35:01 AM EDT [facility] Functional Status Immunizations Vaccine Date Status Description Data Source(s) influenza, intradermal, quadrivalent, preservative mary e 02/12/2021 12:00:00 AM EDT completed 02/12/2021 [facility] ([facility]) COVID-19, mRNA, LNP-S, PF, 100 mcg/0.5 mL dose 10/01/2020 12 :00:00 AM EDT completed 10/01/2020 [facility] ([facility]) COVID-19 VACCINE Moderna 10/01/2020 12:00:00 AM EDT completed [facility] Vaccine Series Complete: YESThis Data wa s Submitted to [facility]. COVID-19, mRNA, LNP-S, PF, 100 mcg/0.5 mL dose 09/03/2020 12 :00:00 AM EDT completed 09/03/2020 NERY ([facility]) COVID-19 VACCINE Moderna 09/03/2020 12:00:00 AM EDT completed NYSIIS Vaccine Series Complete: NOThis Data was Submitted to [facility]. New in 2011. IIV4 03/13/2020 10:49:00 AM EST completed .5 mL NERY ([facility]) New in 2011. IIV4 03/13/2020 10:49:00 AM EST completed .5 mL NERY ([facility]) New in 2011. IIV4 03/13/2020 10:49:00 AM EST completed .5 mL NERY ([facility]) New in 2011. IIV4 03/13/2020 10:49:00 AM EST completed .5 mL NERY ([facility]) Medications Medication Brand Name Start Date Product Form Dose Route Admi nistrative Instructions Pharmacy Instructions Status Indications Reaction Description Data Source(s) Methylprednisolone 4 MG Oral Tablet [Medrol] Medrol 12:00:00 AM EDT active MEDENT ( [facility] ) Cyclobenzaprine hydrochloride 10 MG Oral Tablet Cyclobenzapr ine HCL 11/07/2020 12:00:00 AM EDT active M EDENT ([facility] ) 24 HR quetiapine 300 MG Extended Release Oral Tablet [Seroqu el] Seroquel XR 10/16/2020 12:00:00 AM EDT 300 mg by mouth completed <td ID="MedicationRxNorm_1">400279</td><td ID="MedicationMedication_1">Seroquel XR</td><td ID="MedicationRoute_1">by mouth</td><td ID="MedicationRouteConcept_1">Z62137</td><td ID="MedicationStartDate_1">10/16/2020</td><td ID="MedicationStopDate_1">03/09/2021</td><td ID="MedicationDosageFrequency_1">every night</td><td ID="MedicationDuration_1">30</td><td ID="MedicationFormulaStrength_1">300 mg</td><td ID="MedicationDosageForm_1">tablet extended release 24 hr</td><td ID="MedicationDosageFormCode_1"></td><td ID="MedicationDosageDescription_1"></td><td ID="MedicationMedicationId_1">[id number]</td><td ID="MedicationAccount_1">[id number]</td><td ID="MedicationNpid_1">[id number]</td><td ID="MedicationAuthorFirstName_1">Sue</td><td ID="MedicationAuthorLastName_1">Rip</td><td ID="MedicationTaxonomyCode_1">[id number]</td><td ID="MedicationTaxonomyDesc_1"> Nurse Practitioner</td><td ID="MedicationPhoneNumber_1">[phone]</td> [facility] ([facility]) 24 HR quetiapine 300 MG Extended Release Oral Tablet [Seroqu el] Seroquel XR 10/16/2020 12:00:00 AM EDT 300 mg by mouth completed <td ID="MedicationRxNorm_2">347696</td><td ID="MedicationMedication_2">Seroquel XR</td><td ID="MedicationRoute_2">by mouth</td><td ID="MedicationRouteConcept_2">K89009</td><td ID="MedicationStartDate_2">10/16/2020</td><td ID="MedicationStopDate_2">05/14/2021</td><td ID="MedicationDosageFrequency_2">every night</td><td ID="MedicationDuration_2">30</td><td ID="MedicationFormulaStrength_2">300 mg</td><td ID="MedicationDosageForm_2">tablet extended release 24 hr</td><td ID="MedicationDosageFormCode_2"></td><td ID="MedicationDosageDescription_2"></td><td ID="MedicationMedicationId_2">[id number]</td><td ID="MedicationAccount_2">[id number]</td><td ID="MedicationNpid_2">[id number]</td><td ID="MedicationAuthorFirstName_2">Soniya</td><td ID="MedicationAuthorLastName_2">MacQueen</td><td ID="MedicationTaxonomyCode_2">[id number]</td><td ID="MedicationTaxonomyDesc_2"> Psychiatric/Mental Health</td><td ID="MedicationPhoneNumber_2">[phone]</td> [facility] ([facility]) 24 HR quetiapine 150 MG Extended Release Oral Tablet [Seroqu el] Seroquel XR 10/16/2020 12:00:00 AM EDT 150 mg by mouth completed <td ID="MedicationRxNorm_3">[id number]</td><td ID="MedicationMedication_3">Seroquel XR</td><td ID="MedicationRoute_3">by mouth</td><td ID="MedicationRouteConcept_3">M70373</td><td ID="MedicationStartDate_3">10/16/2020</td><td ID="MedicationStopDate_3">01/28/2021</td><td ID="MedicationDosageFrequency_3">every night</td><td ID="MedicationDuration_3">30</td><td ID="MedicationFormulaStrength_3">150 mg</td><td ID="MedicationDosageForm_3">tablet extended release 24 hr</td><td ID="MedicationDosageFormCode_3"></td><td ID="MedicationDosageDescription_3"></td><td ID="MedicationMedicationId_3">[id number]</td><td ID="MedicationAccount_3">[id number]</td><td ID="MedicationNpid_3">[id number]</td><td ID="MedicationAuthorFirstName_3">Soniya</td><td ID="MedicationAuthorLastName_3">MacQueen</td><td ID="MedicationTaxonomyCode_3">[id number]</td><td ID="MedicationTaxonomyDesc_3"> Psychiatric/Mental Health</td><td ID="MedicationPhoneNumber_3">[phone]</td> [facility] ([facility]) 24 HR quetiapine 150 MG Extended Release Oral Tablet [Seroqu el] Seroquel XR 10/16/2020 12:00:00 AM EDT 150 mg by mouth completed <td ID="MedicationRxNorm_4">194143</td><td ID="MedicationMedication_4">Seroquel XR</td><td ID="MedicationRoute_4">by mouth</td><td ID="MedicationRouteConcept_4">M25818</td><td ID="MedicationStartDate_4">10/16/2020</td><td ID="MedicationStopDate_4">12/15/2020</td><td ID="MedicationDosageFrequency_4">every night</td><td ID="MedicationDuration_4">30</td><td ID="MedicationFormulaStrength_4">150 mg</td><td ID="MedicationDosageForm_4">tablet extended release 24 hr</td><td ID="MedicationDosageFormCode_4"></td><td ID="MedicationDosageDescription_4"></td><td ID="MedicationMedicationId_4">[id number]</td><td ID="MedicationAccount_4">[id number]</td><td ID="MedicationNpid_4">[id number]</td><td ID="MedicationAuthorFirstName_4">Soniya</td><td ID="MedicationAuthorLastName_4">MacQueen</td><td ID="MedicationTaxonomyCode_4">[id number]</td><td ID="MedicationTaxonomyDesc_4"> Psychiatric/Mental Health</td><td ID="MedicationPhoneNumber_4">[phone]</td> [facility] ([facility]) Amoxicillin 875 MG / Clavulanate 125 MG Oral Tablet Am oxicillin/Clavulanate Potassium 08/10/2020 12:00:00 AM EDT active MEDENT ([facility]) 24 HR Nicotine 0.583 MG/HR Transdermal Patch nicotine 2020 12:00:00 AM EDT 14 mg/24 completed <td I D="MedicationRxNorm_2">497546</td><td ID="MedicationMedication_2">nicotine</td><td ID="MedicationRoute_2">to skin</td><td ID="MedicationRouteConcept_2"></td><td ID="MedicationStartDate_2">2020</td><td ID="MedicationStopDate_2">12/10/2020</td><td ID="MedicationDosageFrequency_2">once a day</td><td ID="MedicationDuration_2">30</td><td ID="MedicationFormulaStrength_2">14 mg/24 hr</td><td ID="MedicationDosageForm_2">patch 24 hour</td><td ID="MedicationDosageFormCode_2"></td><td ID="MedicationDosageDescription_2"> </td><td ID="MedicationMedicationId_2">[id number]</td><td ID="MedicationAccount_2">[id number]</td><td ID="MedicationNpid_2">[id number]</td><td ID="MedicationAuthorFirstName_2">Soniya</td><td ID="MedicationAuthorLastName_2">MacQueen</td><td ID="MedicationTaxonomyCode_2">[id number]</td><td ID="MedicationTaxonomyDesc_2">Psychiatric/Mental Health</td><td ID="MedicationPhoneNumber_2">[phone]</td> [facility] ([facility]) 24 HR Nicotine 0.583 MG/HR Transdermal Patch nicotine 2020 12:00:00 AM EDT 14 mg/24 completed <td I D="MedicationRxNorm_1">166973</td><td ID="MedicationMedication_1">nicotine</td><td ID="MedicationRoute_1">to skin</td><td ID="MedicationRouteConcept_1"></td><td ID="MedicationStartDate_1">2020</td><td ID="MedicationStopDate_1">12/10/2020</td><td ID="MedicationDosageFrequency_1">once a day</td><td ID="MedicationDuration_1">30</td><td ID="MedicationFormulaStrength_1">14 mg/24 hr</td><td ID="MedicationDosageForm_1">patch 24 hour</td><td ID="MedicationDosageFormCode_1"></td><td ID="MedicationDosageDescription_1"> </td><td ID="MedicationMedicationId_1">[id number]</td><td ID="MedicationAccount_1">[id number]</td><td ID="MedicationNpid_1">[id number]</td><td ID="MedicationAuthorFirstName_1">Soniya</td><td ID="MedicationAuthorLastName_1">MacQueen</td><td ID="MedicationTaxonomyCode_1">[id number]</td><td ID="MedicationTaxonomyDesc_1">Psychiatric/Mental Health</td><td ID="MedicationPhoneNumber_1">[phone]</td> [facility] ([facility]) 24 HR Nicotine 0.583 MG/HR Transdermal Patch nicotine 2020 12:00:00 AM EDT 14 mg/24 completed <td I D="MedicationRxNorm_3">908923</td><td ID="MedicationMedication_3">nicotine</td><td ID="MedicationRoute_3">to skin</td><td ID="MedicationRouteConcept_3"></td><td ID="MedicationStartDate_3">2020</td><td ID="MedicationStopDate_3">12/10/2020</td><td ID="MedicationDosageFrequency_3">once a day</td><td ID="MedicationDuration_3">30</td><td ID="MedicationFormulaStrength_3">14 mg/24 hr</td><td ID="MedicationDosageForm_3">patch 24 hour</td><td ID="MedicationDosageFormCode_3"></td><td ID="MedicationDosageDescription_3"> </td><td ID="MedicationMedicationId_3">[id number]</td><td ID="MedicationAccount_3">[id number]</td><td ID="MedicationNpid_3">[id number]</td><td ID="MedicationAuthorFirstName_3">Soniya</td><td ID="MedicationAuthorLastName_3">MacQueen</td><td ID="MedicationTaxonomyCode_3">[id number]</td><td ID="MedicationTaxonomyDesc_3">Psychiatric/Mental Health</td><td ID="MedicationPhoneNumber_3">[phone]</td> [facility] ([facility]) gabapentin 600 MG Oral Tablet Gabapentin 08/07/2020 12:00:00 AM EDT active MEDENT ([facility]) gabapentin 300 MG Oral Capsule Gabapentin 06/17/2020 12:00:00 AM EST ORAL completed MEDENT ([facility]) meloxicam 15 MG Oral Tablet Meloxicam 06/17/2020 12:00:00 AM EST ORAL completed MEDENT ([facility]) gabapentin 100 MG Oral Capsule Gabapentin 06/06/2020 12:00:00 AM EST ORAL completed MEDENT ([facility]) Propranolol Hydrochloride 10 MG Oral Tablet propranolol 04/16/2020 12:00:00 AM EST 10 mg by mouth completed <td ID="MedicationRxNorm_2">185453</td><td ID="MedicationMedication_2">propranolol</td><td ID="MedicationRoute_2">by mouth</td><td ID="MedicationRouteConcept_2">S03212</td><td ID="MedicationStartDate_2">04/16/2020</td><td ID="MedicationStopDate_2">08/28/2020</td><td ID="MedicationDosageFrequency_2">twice a day</td><td ID="MedicationDuration_2">30</td><td ID="MedicationFormulaStrength_2">10 mg</td><td ID="MedicationDosageForm_2">tablet</td><td ID="MedicationDosageFormCode_2"></td><td ID="MedicationDosageDescription_2">as needed</td><td ID="MedicationMedicationId_2">[id number]</td><td ID="MedicationAccount_2">[id number]</td><td ID="MedicationNpid_2">[id number]</td><td ID="MedicationAuthorFirstName_2">Soniya</td><td ID="MedicationAuthorLastName_2">MacQueen</td><td ID="MedicationTaxonomyCode_2">[id number]</td><td ID="MedicationTaxonomyDesc_2">Psychiatric/Mental Health</td><td ID="MedicationPhoneNumber_2">[phone]</td> [facility] ([facility]) Propranolol Hydrochloride 10 MG Oral Tab let propranolol 10 mg tablet TK 1 T PO BID PRN propranolol 10 mg tablet TK 1 T PO BID PRN 03/13/2020 12:00:00 A M EST completed propranolol hydrochlor chris 10 MG Oral Tablet NERY ([facility]) Propranolol Hydrochloride 10 MG Oral Tab let propranolol 10 mg tablet TK 1 T PO BID PRN propranolol 10 mg tablet TK 1 T PO BID PRN 03/13/2020 12:00:00 A M EST completed propranolol hydrochlor chris 10 MG Oral Tablet NERY ([facility]) 24 HR quetiapine 400 MG Extended Release Oral Tablet quetiap ine 03/12/2020 12:00:00 AM EST 400 mg by mouth completed <td ID="MedicationRxNorm_1">246573</td><td ID="MedicationMedication_1">quetiapine</td><td ID="MedicationRoute_1">by mouth</td><td ID="MedicationRouteConcept_1">W71071</td><td ID="MedicationStartDate_1">03/12/2020</td><td ID="MedicationStopDate_1">05/14/2021</td><td ID="MedicationDosageFrequency_1">at bedtime</td><td ID="MedicationDuration_1">30</td><td ID="MedicationFormulaStrength_1">400 mg</td><td ID="MedicationDosageForm_1">tablet extended release 24 hr</td><td ID="MedicationDosageFormCode_1"></td><td ID="MedicationDosageDescription_1">as directed</td><td ID="MedicationMedicationId_1">[id number]</td><td ID="MedicationAccount_1">[id number]</td><td ID="MedicationNpid_1">[id number]</td><td ID="MedicationAuthorFirstName_1">Soniya</td><td ID="MedicationAuthorLastName_1">MacQueen</td><td ID="MedicationTaxonomyCode_1">[id number]</td><td ID="MedicationTaxonomyDesc_1"> Psychiatric/Mental Health</td><td ID="MedicationPhoneNumber_1">[phone]</td> [facility] ([facility]) 24 HR quetiapine 400 MG Extended Release Oral Tablet quetiap ine 03/12/2020 12:00:00 AM EST 400 mg by mouth completed <td ID="MedicationRxNorm_2">447600</td><td ID="MedicationMedication_2">quetiapine</td><td ID="MedicationRoute_2">by mouth</td><td ID="MedicationRouteConcept_2">U39050</td><td ID="MedicationStartDate_2">03/12/2020</td><td ID="MedicationStopDate_2">03/12/2021</td><td ID="MedicationDosageFrequency_2">at bedtime</td><td ID="MedicationDuration_2">30</td><td ID="MedicationFormulaStrength_2">400 mg</td><td ID="MedicationDosageForm_2">tablet extended release 24 hr</td><td ID="MedicationDosageFormCode_2"></td><td ID="MedicationDosageDescription_2">as directed</td><td ID="MedicationMedicationId_2">[id number]</td><td ID="MedicationAccount_2">[id number]</td><td ID="MedicationNpid_2">[id number]</td><td ID="MedicationAuthorFirstName_2">Soniya</td><td ID="MedicationAuthorLastName_2">MacQueen</td><td ID="MedicationTaxonomyCode_2">[id number]</td><td ID="MedicationTaxonomyDesc_2"> Psychiatric/Mental Health</td><td ID="MedicationPhoneNumber_2">[phone]</td> [facility] ([facility]) 24 HR quetiapine 300 MG Extended Release Oral Tablet quetiap ine 02/13/2020 12:00:00 AM EDT 300 mg by mouth completed <td ID="MedicationRxNorm_3">272464</td><td ID="MedicationMedication_3">quetiapine</td><td ID="MedicationRoute_3">by mouth</td><td ID="MedicationRouteConcept_3">Z33991</td><td ID="MedicationStartDate_3">02/13/2020</td><td ID="MedicationStopDate_3">03/14/2020</td><td ID="MedicationDosageFrequency_3">at bedtime</td><td ID="MedicationDuration_3">30</td><td ID="MedicationFormulaStrength_3">300 mg</td><td ID="MedicationDosageForm_3">tablet extended release 24 hr</td><td ID="MedicationDosageFormCode_3"></td><td ID="MedicationDosageDescription_3">as directed</td><td ID="MedicationMedicationId_3">[id number]</td><td ID="MedicationAccount_3">[id number]</td><td ID="MedicationNpid_3">[id number]</td><td ID="MedicationAuthorFirstName_3">Luma</td><td ID="MedicationAuthorLastName_3">Egorho</td><td ID="MedicationTaxonomyCode_3">[id number]</td><td ID="MedicationTaxonomyDesc_3"> Nurse Practitioner</td><td ID="MedicationPhoneNumber_3">[phone]</td> [facility] ([facility]) quetiapine 100 MG Oral Tablet quetiapine 100 mg tablet TK 1 T PO QHS DIRECTED quetiapine 100 mg tablet TK 1 T PO QHS DIRECTED completed quetiapine 100 MG Oral Tablet AT [facility] ([facility]) [place] Carbonate 300 MG Oral Capsule li thium carbonate 300 mg capsule TK 1 C PO BID lithium carbonate 300 mg capsule TK 1 C PO BID completed lithium carbonate 300 MG Oral Capsule NERY ([facility]) meloxicam 15 MG Oral Tablet meloxicam 15 mg tablet TAKE 1 TABLET BY MOUTH EVERY DAY WITH FOOD OR MILK meloxicam 15 mg tablet TAKE 1 TABLET BY MOUTH EVERY DAY WITH FOOD OR MILK completed grewal xicam 15 MG Oral Tablet [place] ([facility]) 1 ML paliperidone palmitate 156 MG/ML Pr efilled Syringe [Invega] Invega Sustenna 156 mg/mL intramuscular syringe USE 1 SYRINGE ONCE A MONTH PRN BRING TO THE CLINIC FOR NURSE TO ADMNISTER Invega Sustenna 156 mg/mL intramuscular syringe USE 1 SYRINGE ONCE A MONTH PRN BRING TO THE CLINIC FOR NURSE TO ADMNISTER completed 1 ML paliperid one palmitate 156 MG/ML Prefilled Syringe [Invega] NERY ([facility]) 24 HR quetiapine 300 MG Extended Release Oral Tablet quetiapine ER 300 mg tablet,extended release 24 hr TK 1 T PO HS UTD quetiapine ER 300 mg tablet,extended release 24 hr TK 1 T PO HS UTD completed 24 HR quetiapine 300 MG Extended Release Oral Tablet [place] ([facility]) meloxicam 15 MG Oral Tablet meloxicam 15 mg tablet TAKE 1 TABLET BY MOUTH EVERY DAY WITH FOOD OR MILK meloxicam 15 mg tablet TAKE 1 TABLET BY MOUTH EVERY DAY WITH FOOD OR MILK completed grewal xicam 15 MG Oral Tablet [place] ([facility]) Amoxicillin 875 MG / Clavulanate 125 MG Oral Tablet amoxicillin 875 mg-potassium clavulanate 125 mg tablet TAKE 1 TABLET BY MOUTH TWICE DAILY amoxicillin 875 mg-potassium clavulanate 125 mg tablet TAKE 1 TABLET BY MOUTH TWICE DAILY completed amoxicillin 875 MG / clavulanate 125 MG Oral Tablet [place] ([facility]) 1 ML paliperidone palmitate 156 MG/ML Pr efilled Syringe [Invega] Invega Sustenna 156 mg/mL intramuscular syringe USE 1 SYRINGE ONCE A MONTH PRN BRING TO THE CLINIC FOR NURSE TO ADMNISTER Invega Sustenna 156 mg/mL intramuscular syringe USE 1 SYRINGE ONCE A MONTH PRN BRING TO THE CLINIC FOR NURSE TO ADMNISTER completed 1 ML paliperid one palmitate 156 MG/ML Prefilled Syringe [Invega] NERY ([facility]) 24 HR Nicotine 0.583 MG/HR Transdermal P atch nicotine 14 mg/24 hr daily transdermal patch APPLY 1 PATCH EXTERNALLY TO THE SKIN EVERY DAY nicotine 14 mg/24 hr daily transdermal patch APPLY 1 PATCH EXTERNALLY TO THE SKIN EVERY DAY completed 24 HR nicotine 0.583 MG/HR Transdermal System [place] ([facility]) 1.5 ML paliperidone palmitate 156 MG/ML Prefilled Syringe [Invega] Invega Sustenna 234 mg/1.5 mL intramuscular syringe Invega Sustenna 234 mg/1.5 mL intramuscular syringe completed 1.5 ML paliperidone palmitate 156 MG/ML Prefilled Syringe [Invega] [place] ([facility]) [place] Carbonate 300 MG Oral Capsule li thium carbonate 300 mg capsule TK 1 C PO BID lithium carbonate 300 mg capsule TK 1 C PO BID completed lithium carbonate 300 MG Oral Capsule [place] ([facility]) Amoxicillin 875 MG / Clavulanate 125 MG Oral Tablet amoxicillin 875 mg-potassium clavulanate 125 mg tablet TAKE 1 TABLET BY MOUTH TWICE DAILY amoxicillin 875 mg-potassium clavulanate 125 mg tablet TAKE 1 TABLET BY MOUTH TWICE DAILY completed amoxicillin 875 MG / clavulanate 125 MG Oral Tablet [place] ([facility]) 1.5 ML paliperidone palmitate 156 MG/ML Prefilled Syringe [Invega] Invega Sustenna 234 mg/1.5 mL intramuscular syringe Invega Sustenna 234 mg/1.5 mL intramuscular syringe completed 1.5 ML paliperidone palmitate 156 MG/ML Prefilled Syringe [Invega] [place] ([facility]) Cyclobenzaprine hydrochloride 10 MG Oral Tablet cyclobenzaprine 10 mg tablet TAKE 1 TABLET BY MOUTH THREE TIMES DAILY NEEDED FOR MUSCLE SPASMS cyclobenzaprine 10 mg tablet TAKE 1 TABLET BY MOUTH THREE TIMES DAILY NEEDED FOR MUSCLE SPASMS completed cyclobenzaprine hydrochloride 10 MG Oral Tablet [place] ([facility]) buspirone hydrochloride 10 MG Oral Table t buspirone 10 mg tablet TK 1 T PO BID FOR ANXIETY buspirone 10 mg tablet TK 1 T PO BID FOR ANXIETY completed buspirone hydrochloride 10 MG Or al Tablet [place] ([facility]) methylprednisolone 4 mg tablets in a dose pack TAKE DIRECTED [id number] completed methylprednisolone 4 mg t ablets in a dose pack [facility]) 24 HR quetiapine 150 MG Extended Release Oral Tablet quetiapine ER 150 mg tablet,extended release 24 hr TK 1 T PO HS UTD quetiapine ER 150 mg tablet,extended release 24 hr TK 1 T PO HS UTD completed 24 HR quetiapine 150 MG Extended Release Oral Tablet [place] ([facility]) Propranolol Hydrochloride 10 MG Oral Tab let propranolol 10 mg tablet TAKE 1 TABLET BY MOUTH TWICE DAILY NEEDED propranolol 10 mg tablet TAKE 1 TABLET B Y MOUTH TWICE DAILY NEEDED completed propranolol hydrochloride 10 MG Oral Tablet NERY ([facility]) Metronidazole 500 MG Oral Tablet metroni dazole 500 mg tablet TAKE 4 TABLETS BY MOUTH ONCE A SINGLE DOSE metronidazole 500 mg tablet TAKE 4 TABLE TS BY MOUTH ONCE A SINGLE DOSE completed metronidazole 500 MG Oral Tablet [place] ([facility]) 24 HR quetiapine 300 MG Extended Release Oral Tablet quetiapine ER 300 mg tablet,extended release 24 hr TK 1 T PO HS UTD quetiapine ER 300 mg tablet,extended release 24 hr TK 1 T PO HS UTD completed 24 HR quetiapine 300 MG Extended Release Oral Tablet [place] ([facility]) quetiapine 100 MG Oral Tablet quetiapine 100 mg tablet TK 1 T PO QHS DIRECTED quetiapine 100 mg tablet TK 1 T PO QHS DIRECTED completed quetiapine 100 MG Oral Tablet AT [facility] ([facility]) quetiapine 100 MG Oral Tablet quetiapine 100 mg tablet TK 1 T PO QHS DIRECTED quetiapine 100 mg tablet TK 1 T PO QHS DIRECTED completed quetiapine 100 MG Oral Tablet AT [facility] ([facility]) gabapentin 100 MG Oral Capsule gabapenti n 100 mg capsule TAKE 1 TO 2 CAPSULES BY MOUTH THREE TIMES DAILY gabapentin 100 mg capsule TAKE 1 TO 2 CA PSULES BY MOUTH THREE TIMES DAILY completed [place] apentin 100 MG Oral Capsule [facility]) Cyclobenzaprine hydrochloride 10 MG Oral Tablet cyclobenzaprine 10 mg tablet TAKE 1 TABLET BY MOUTH THREE TIMES DAILY NEEDED FOR MUSCLE SPASMS cyclobenzaprine 10 mg tablet TAKE 1 TABLET BY MOUTH THREE TIMES DAILY NEEDED FOR MUSCLE SPASMS completed cyclobenzaprine hydrochloride 10 MG Oral Tablet [facility] ([facility]) 24 HR quetiapine 150 MG Extended Release Oral Tablet quetiapine ER 150 mg tablet,extended release 24 hr TAKE 1 TABLET BY MOUTH EVERY NIGHT quetiapine ER 150 mg tablet,extended release 24 hr TAKE 1 TABLET BY MOUTH EVERY NIGHT completed 24 HR quetiapine 150 MG E xtended Release Oral Tablet [place] ([facility]) [place] Carbonate 300 MG Oral Capsule li thium carbonate 300 mg capsule TK 1 C PO BID lithium carbonate 300 mg capsule TK 1 C PO BID completed lithium carbonate 300 MG Oral Capsule [facility] ([facility]) 1 ML paliperidone palmitate 156 MG/ML Pr efilled Syringe [Invega] Invega Sustenna 156 mg/mL intramuscular syringe USE 1 SYRINGE ONCE A MONTH PRN BRING TO THE CLINIC FOR NURSE TO ADMNISTER Invega Sustenna 156 mg/mL intramuscular syringe USE 1 SYRINGE ONCE A MONTH PRN BRING TO THE CLINIC FOR NURSE TO ADMNISTER completed 1 ML paliperid one palmitate 156 MG/ML Prefilled Syringe [Invega] [facility] ([facility]) buspirone hydrochloride 10 MG Oral Table t buspirone 10 mg tablet TK 1 T PO BID FOR ANXIETY buspirone 10 mg tablet TK 1 T PO BID FOR ANXIETY completed buspirone hydrochloride 10 MG Or al Tablet [place] ([facility]) 1.5 ML paliperidone palmitate 156 MG/ML Prefilled Syringe [Invega] Invega Sustenna 234 mg/1.5 mL intramuscular syringe Invega Sustenna 234 mg/1.5 mL intramuscular syringe completed 1.5 ML paliperidone palmitate 156 MG/ML Prefilled Syringe [Invega] NERY ([facility]) buspirone hydrochloride 10 MG Oral Table t buspirone 10 mg tablet TK 1 T PO BID FOR ANXIETY buspirone 10 mg tablet TK 1 T PO BID FOR ANXIETY completed buspirone hydrochloride 10 MG Or al Tablet [place] ([facility]) 24 HR quetiapine 300 MG Extended Release Oral Tablet quetiapine ER 300 mg tablet,extended release 24 hr TK 1 T PO HS UTD quetiapine ER 300 mg tablet,extended release 24 hr TK 1 T PO HS UTD completed 24 HR quetiapine 300 MG Extended Release Oral Tablet [facility] ([facility]) Methocarbamol 750 MG Oral Tablet methoca rbamol 750 mg tablet TAKE 1 TABLET BY MOUTH THREE TIMES DAILY methocarbamol 750 mg tablet TAKE 1 TABLE T BY MOUTH THREE TIMES DAILY completed methocarb arnol 750 MG Oral Tablet [place] ([facility]) Cyclobenzaprine hydrochloride 10 MG Oral Tablet cyclobenzaprine 10 mg tablet TK 1 T PO TID PRN FOR SPASM cyclobenzaprine 10 mg tablet TK 1 T PO T ID PRN FOR SPASM completed cyclobenzaprine hydrochloride 10 MG Oral Tablet [facility] ([facility]) Propranolol Hydrochloride 10 MG Oral Tab let propranolol 10 mg tablet TAKE 1 TABLET BY MOUTH TWICE DAILY NEEDED propranolol 10 mg tablet TAKE 1 TABLET B Y MOUTH TWICE DAILY NEEDED completed propranolol hydrochloride 10 MG Oral Tablet NERY ([facility]) [place] Carbonate 300 MG Oral Capsule li thium carbonate 300 mg capsule TK 1 C PO BID lithium carbonate 300 mg capsule TK 1 C PO BID completed lithium carbonate 300 MG Oral Capsule NERY ([facility]) gabapentin 300 MG Oral Capsule gabapenti n 300 mg capsule TAKE 1 CAPSULE BY MOUTH THREE TIMES DAILY. MAXIMUM DAILY DOSE IS 3 gabapentin 300 mg capsule TAKE 1 CAPSULE BY MOUTH THREE TIMES DAILY. MAXIMUM DAILY DOSE IS 3 completed gabapentin 300 MG Oral Capsule A [facility] ([facility]) 1.5 ML paliperidone palmitate 156 MG/ML Prefilled Syringe [Invega] Invega Sustenna 234 mg/1.5 mL intramuscular syringe Invega Sustenna 234 mg/1.5 mL intramuscular syringe completed 1.5 ML paliperidone palmitate 156 MG/ML Prefilled Syringe [Invega] NERY ([facility]) ramelteon 8 MG Oral Tablet ramelteon 8 mg tablet TK 1 T PO HS ramelteon 8 mg tablet TK 1 T PO HS completed ra melteon 8 MG Oral Tablet [place] ([facility]) gabapentin 300 MG Oral Capsule gabapenti n 300 mg capsule TAKE 1 CAPSULE BY MOUTH THREE TIMES DAILY. MAXIMUM DAILY DOSE IS 3 gabapentin 300 mg capsule TAKE 1 CAPSULE BY MOUTH THREE TIMES DAILY. MAXIMUM DAILY DOSE IS 3 completed gabapentin 300 MG Oral Capsule A THEN ([facility]) buspirone hydrochloride 10 MG Oral Table t buspirone 10 mg tablet TK 1 T PO BID FOR ANXIETY buspirone 10 mg tablet TK 1 T PO BID FOR ANXIETY completed buspirone hydrochloride 10 MG Or al Tablet [place] ([facility]) gabapentin 100 MG Oral Capsule gabapenti n 100 mg capsule TAKE 1 TO 2 CAPSULES BY MOUTH THREE TIMES DAILY gabapentin 100 mg capsule TAKE 1 TO 2 CA PSULES BY MOUTH THREE TIMES DAILY completed [place] apentin 100 MG Oral Capsule NERY ([facility]) Metronidazole 500 MG Oral Tablet metroni dazole 500 mg tablet TAKE 4 TABLETS BY MOUTH ONCE A SINGLE DOSE metronidazole 500 mg tablet TAKE 4 TABLE TS BY MOUTH ONCE A SINGLE DOSE completed metronidazole 500 MG Oral Tablet N[facility] ([facility]) 24 HR quetiapine 150 MG Extended Release Oral Tablet quetiapine ER 150 mg tablet,extended release 24 hr TK 1 T PO HS UTD quetiapine ER 150 mg tablet,extended release 24 hr TK 1 T PO HS UTD completed 24 HR quetiapine 150 MG Extended Release Oral Tablet [place] ([facility]) Cyclobenzaprine hydrochloride 10 MG Oral Tablet cyclobenzaprine 10 mg tablet TK 1 T PO TID PRN FOR SPASM cyclobenzaprine 10 mg tablet TK 1 T PO T ID PRN FOR SPASM completed cyclobenzaprine hydrochloride 10 MG Oral Tablet [place] ([facility]) buspirone hydrochloride 10 MG Oral Table t buspirone 10 mg tablet TK 1 T PO BID FOR ANXIETY buspirone 10 mg tablet TK 1 T PO BID FOR ANXIETY completed buspirone hydrochloride 10 MG Or al Tablet [place] ([facility]) Methocarbamol 750 MG Oral Tablet methoca rbamol 750 mg tablet TAKE 1 TABLET BY MOUTH THREE TIMES DAILY methocarbamol 750 mg tablet TAKE 1 TABLE T BY MOUTH THREE TIMES DAILY completed methocarb arnol 750 MG Oral Tablet [place] ([facility]) Prednisone 20 MG Oral Tablet prednisone 20 mg tablet TAKE 3 TABLETS BY MOUTH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 Source [id number] 09/21/2020 12:30:00 PM EDT [facility] ([facility] ) Name Value Range Interpretation Code Description Data Renetta rce(s) Supporting Document(s) Glomerular filtration rate/1.73 sq M.pre dicted [Volume Rate/Area] in Serum or Plasma by Creatinine-based formula (MDRD) [facility] ID Date Data Source [id number] 09/21/2020 12:30:00 PM EDT [facility] ([facility]) Name Value Range Interpretation Code Description Data Renetta rce(s) Supporting Document(s) Creatinine [Mass/volume] in Serum or Plasma 0.91 0.55-1.30 [facility] ([facility]) ID Date Data Source [id number] 09/21/2020 12:30:00 PM EDT [facility] ([facility]) Name Value Range Interpretation Code Description Data Renetta rce(s) Supporting Document(s) Urea nitrogen [Mass/volume] in Serum or Plasma 13 7-18 [facility] ([facility]) ID Date Data Source [id number] 09/21/2020 12:30:00 PM EDT [facility] ([facility]) Name Value Range Interpretation Code Description Data Renetta rce(s) Supporting Document(s) Phosphate [Mass/volume] in Serum or Plasma 3.3 2.5-4.9 [facility] ([facility]) ID Date Data Source [id number] 09/21/2020 12:30:00 PM EDT [facility] ([facility]) Name Value Range Interpretation Code Description Data Renetta rce(s) Supporting Document(s) Nucleated erythrocytes/100 leukocytes [Ratio] in Blood by Au tomated count 0.0 0-0 [facility] ([facility]) ID Date Data Source [id number] 09/21/2020 12:30:00 PM EDT [facility] ([facility]) Name Value Range Interpretation Code Description Data Renetta rce(s) Supporting Document(s) Platelets [#/volume] in Blood by Automated count 268 150-450 [facility] ([facility]) ID Date Data Source [id number] 09/21/2020 12:30:00 PM EDT [facility] ([facility]) Name Value Range Interpretation Code Description Data Renetta rce(s) Supporting Document(s) Erythrocyte distribution width [Ratio] by Automated count 12.7 11.5-14.5 [facility] ([facility]) ID Date Data Source [id number] 09/21/2020 12:30:00 PM EDT [facility] ([facility]) Name Value Range Interpretation Code Description Data Renetta rce(s) Supporting Document(s) Erythrocyte mean corpuscular hemoglobin concentration [Mass/volume] by Automated count 36.1 32.0-36.5 [facility]) ID Date Data Source [id number] 09/21/2020 12:30:00 PM EDT [facility] ([facility]) Name Value Range Interpretation Code Description Data Renetta rce(s) Supporting Document(s) Erythrocyte mean corpuscular hemoglobin [Entitic mass] by Au tomated count 30.4 27.0-33.0 [facility] ([facility]) ID Date Data Source [id number] 09/21/2020 12:30:00 PM EDT [facility] ([facility]) Name Value Range Interpretation Code Description Data Renetta rce(s) Supporting Document(s) Erythrocyte mean corpuscular volume [Entitic volume] by Auto mated count 84.2 80.0-96.0 [facility] ([facility]) ID Date Data Source [id number] 09/21/2020 12:30:00 PM EDT [facility] ([facility]) Name Value Range Interpretation Code Description Data Renetta rce(s) Supporting Document(s) Hematocrit [Volume Fraction] of Blood by Automated count 41.0 3 6.0-47.0 [facility] ([facility]) ID Date Data Source [id number] 09/21/2020 12:30:00 PM EDT [facility] ([facility]) Name Value Range Interpretation Code Description Data Renetta rce(s) Supporting Document(s) Hemoglobin [Mass/volume] in Blood 14.8 12.0-15.5 [facility] ([facility]) ID Date Data Source [id number] 09/21/2020 12:30:00 PM EDT [facility] ([facility]) Name Value Range Interpretation Code Description Data Renetta rce(s) Supporting Document(s) Leukocytes [#/volume] in Blood by Automated count 10.2 4.0-10.0 [facility] ([facility]) ID Date Data Source [id number] 09/21/2020 12:30:00 PM EDT [facility] ([facility]) Name Value Range Interpretation Code Description Data Renetta rce(s) Supporting Document(s) Glucose [Mass/volume] in Serum or Plasma 102 70-100 [facility] ([facility]) ID Date Data Source [id number] 09/21/2020 12:30:00 PM EDT [facility] ([facility]) Name Value Range Interpretation Code Description Data Renetta rce(s) Supporting Document(s) Deprecated Cobalamin [Mass/volume] in Serum 21.1 30.0-100.0 [facility] ([facility]) ID Date Data Source [id number] 09/21/2020 12:30:00 PM EDT [facility] ([facility]) Name Value Range Interpretation Code Description Data Renetta rce(s) Supporting Document(s) Thyrotropin [Units/volume] in Serum or Plasma by Detec tion limit <= 0.005 mIU/L 1.560 0.358-3.740 [facility] ([facility]) ID Date Data Source [id number] 09/21/2020 12:30:00 PM EDT [facility] ([facility]) Name Value Range Interpretation Code Description Data Renetta rce(s) Supporting Document(s) Glucose mean value [Mass/volume] in Blood Estimated fr om glycated hemoglobin 114 60-110 [facility] ([facility]) ID Date Data Source [id number] 09/21/2020 12:30:00 PM EDT [facility] ([facility]) Name Value Range Interpretation Code Description Data Renetta rce(s) Supporting Document(s) Hemoglobin A1c/Hemoglobin.total in Blood 5.6 [facility] ([facility]) ID Date Data Source [id number] 09/21/2020 12:30:00 PM EDT [facility] ([facility]) Name Value Range Interpretation Code Description Data Renetta rce(s) Supporting Document(s) Albumin/Globulin Ratio 1.2 1.2-2.2 [facility] ([facility]) ID Date Data Source [id number] 09/21/2020 12:30:00 PM EDT [facility] ([facility]) Name Value Range Interpretation Code Description Data Renetta rce(s) Supporting Document(s) Albumin [Mass/volume] in Serum or Plasma 3.9 3.2-5.2 [facility] ([facility]) ID Date Data Source [id number] 09/21/2020 12:30:00 PM EDT [facility] ([facility]) Name Value Range Interpretation Code Description Data Renetta rce(s) Supporting Document(s) Protein [Mass/volume] in Serum or Plasma 7.1 6.4-8.2 [facility] ([facility]) ID Date Data Source [id number] 09/21/2020 12:30:00 PM EDT [facility] ([facility]) Name Value Range Interpretation Code Description Data Renetta rce(s) Supporting Document(s) Cholesterol.total/Cholesterol in HDL [Mass Ratio] in Serum or Plasm a 2.625 [facility] ([facility]) ID Date Data Source [id number] 09/21/2020 12:30:00 PM EDT [facility] ([facility]) Name Value Range Interpretation Code Description Data Renetta rce(s) Supporting Document(s) Cholesterol non HDL [Mass/volume] in Serum or Plasma 78 [facility] ([facility]) ID Date Data Source [id number] 09/21/2020 12:30:00 PM EDT [facility] ([facility]) Name Value Range Interpretation Code Description Data Renetta rce(s) Supporting Document(s) Calcium [Moles/volume] in Serum or Plasma 9.0 8.5-10.1 [facility] ([facility]) ID Date Data Source [id number] 09/21/2020 12:30:00 PM EDT [facility] ([facility]) Name Value Range Interpretation Code Description Data Renetta rce(s) Supporting Document(s) Cholesterol in HDL [Mass/volume] in Serum or Plasma 48 [facility] ([facility]) ID Date Data Source [id number] 09/21/2020 12:30:00 PM EDT [facility] ([facility]) Name Value Range Interpretation Code Description Data Renetta rce(s) Supporting Document(s) Cholesterol [Mass/volume] in Serum or Plasma 126 [facility] ([facility]) ID Date Data Source [id number] 09/21/2020 12:30:00 PM EDT [facility] ([facility]) Name Value Range Interpretation Code Description Data Renetta rce(s) Supporting Document(s) Triglyceride [Mass/volume] in Serum or Plasma 110 [facility] ([facility]) ID Date Data Source [id number] 09/21/2020 12:30:00 PM EDT [facility] ([facility]) Name Value Range Interpretation Code Description Data Renetta rce(s) Supporting Document(s) Bilirubin.direct [Mass/volume] in Serum or Plasma 0.2 0.0-0.2 [facility] ([facility]) ID Date Data Source [id number] 09/21/2020 12:30:00 PM EDT [facility] ([facility]) Name Value Range Interpretation Code Description Data Renetta rce(s) Supporting Document(s) Bilirubin.total [Mass/volume] in Serum or Plasma 0.5 0.2-1.0 [facility] ([facility]) ID Date Data Source [id number] 09/21/2020 12:30:00 PM EDT [facility] ([facility]) Name Value Range Interpretation Code Description Data Renetta rce(s) Supporting Document(s) Alkaline phosphatase [Enzymatic activity/volume] in Serum or Layo sma 90 45-117 [facility] ([facility]) ID Date Data Source [id number] 09/21/2020 12:30:00 PM EDT [facility] ([facility]) Name Value Range Interpretation Code Description Data Renetta rce(s) Supporting Document(s) Alanine aminotransferase [Enzymatic activity/volume] in Seru m or Plasma 31 12-78 [facility] ([facility]) ID Date Data Source [id number] 09/21/2020 12:30:00 PM EDT [facility] ([facility]) Name Value Range Interpretation Code Description Data Renetta rce(s) Supporting Document(s) Aspartate aminotransferase [Enzymatic activity/volume] in Se rum or Plasma 13 7-37 [facility] ([facility]) ID Date Data Source [id number] 09/21/2020 12:30:00 PM EDT [facility] ([facility]) Name Value Range Interpretation Code Description Data Renetta rce(s) Supporting Document(s) Cholesterol in LDL [Mass/volume] in Serum or Plasma by calculation 56 [facility] ([facility]) ID Date Data Source [id number] 09/21/2020 12:30:00 PM EDT [facility] ([facility]) Name Value Range Interpretation Code Description Data Renetta rce(s) Supporting Document(s) total 25(oh) vitamin D 21.1 NG/mL 30.0-100.0 Below low normal T otal 25(Oh) Vitamin D [place] ([facility]) ID Date Data Source [id number] 09/21/2020 12:30:00 PM EDT [facility]) Name Value Range Interpretation Code Description Data Renetta rce(s) Supporting Document(s) thyroid stimulating hormone 1.560 uIU/mL 0.358-3.740 Thyroid Stimulating Hormone [facility]) ID Date Data Source [id number] 09/21/2020 12:30:00 PM EDT [place] ([facility]) Name Value Range Interpretation Code Description Data Renetta rce(s) Supporting Document(s) phosphorus level 3.3 mg/dL 2.5-4.9 Phosphorus Level AT [facility]) ID Date Data Source [id number] 09/21/2020 12:30:00 PM EDT [facility]) Name Value Range Interpretation Code Description Data Renetta rce(s) Supporting Document(s) bilirubin,direct 0.2 mg/dL 0.0-0.2 Bilirubin,direct AT [facility] ([facility]) ID Date Data Source [id number] 09/21/2020 12:30:00 PM EDT [facility]) Name Value Range Interpretation Code Description Data Renetta rce(s) Supporting Document(s) cholesterol level 126 mg/dL <200 Cholesterol Level [facility] ([facility]) triglycerides level 110 mg/dL <150 Triglycerides Le demetrius [facility] ([facility]) Cholesterol in LDL [Mass/volume] in Serum or Plasma 56 mg/dL <1 00 LDL Cholesterol [facility] ([facility]) HDL cholesterol 48 mg/dL >40 HDL Cholesterol [facility] ([facility]) cholesterol risk ratio <5 Cholesterol R isk Ratio [facility] ([facility]) non-HDL-C 78 mg/dL Non-hdl-c [facility] ([facility]) ID Date Data Source [id number] 09/21/2020 12:30:00 PM EDT [facility] ([facility]) Name Value Range Interpretation Code Description Data Renetta rce(s) Supporting Document(s) blood urea nitrogen 13 mg/dL 7-18 Blood Urea Nitro gen [facility] ([facility]) glucose, fasting 102 mg/dL 70-100 Above high normal Glucose, Fas ting [facility] ([facility]) glomerular filtration rate > 60.0 >60 Glomerula r Filtration Rate [facility] ([facility]) creatinine for GFR 0.91 mg/dL 0.55-1.30 Creatinine for GF R [facility] ([facility]) chloride level 111 mEq/L 98-107 Above high normal Chloride Level [place] ([facility]) potassium serum 4.3 mEq/L 3.5-5.1 Potassium Serum [facility] ([facility]) sodium level 141 mEq/L 136-145 Sodium Level [facility] ([facility]) anion gap 6 mEq/L 8-16 Below low normal Anion Gap [facility] ( [facility]) calcium level 9.0 mg/dL 8.5-10.1 Calcium Level [facility] ( [facility]) carbon dioxide level 24 mEq/L 21-32 Carbon Dioxide Level [facility] ([facility]) ALT/SGPT 31 U/L 12-78 ALT/SGPT [facility] ([facility]) AST/SGOT 13 U/L 7-37 AST/SGOT [facility] ([facility]) alkaline phosphatase 90 U/L 45-117 Alkaline Phosph atase [facility] ([facility]) total protein 7.1 gm/dL 6.4-8.2 Total Protein [facility] ( [facility]) bilirubin,total 0.5 mg/dL 0.2-1.0 Bilirubin,total [facility] ([facility]) albumin 3.9 gm/dL 3.2-5.2 Albumin [facility] ([facility]) albumin/globulin ratio 1.2-2.2 Albumin/globu lor Ratio [facility] ([facility]) ID Date Data Source [id number] 09/21/2020 12:30:00 PM EDT [facility] ([facility]) Name Value Range Interpretation Code Description Data Renetta rce(s) Supporting Document(s) Hemoglobin A1c/Hemoglobin.total in Blood 5.6 % Hemoglobin a1C [facility] ([facility]) estimated average glucose 114 mg/dL 60-110 Above high norm al Estimated Average Glucose [facility] ([facility]) ID Date Data Source [id number] 09/21/2020 12:30:00 PM EDT [facility] ([facility]) Name Value Range Interpretation Code Description Data Renetta rce(s) Supporting Document(s) white blood count 10.2 10 4.0-10.0 Above high normal White Blood Count [facility] ([facility]) red blood count 4.87 10 4.00-5.40 Red Blood Count [facility] ([facility]) hemoglobin 14.8 g/dL 12.0-15.5 Hemoglobin [facility] ([facility]) hematocrit 41.0 % 36.0-47.0 Hematocrit [facility] ([facility]) mean corpuscular HGB conc 36.1 g/dL 32.0-36.5 Mean Corpu scular HGB Conc [facility] ([facility]) mean corpuscular volume 84.2 fL 80.0-96.0 Mean Corpusc ular Volume [facility] ([facility]) mean corpuscular hemoglobin 30.4 pg 27.0-33.0 Mean Cor puscular Hemoglobin [facility] ([facility]) red cell distribution width 12.7 % 11.5-14.5 Red Cell Distribution Width [facility] ([facility]) platelet count, automated 268 10 150-450 Platelet C ount, Automated [facility] ([facility]) nucleated red blood cell % 0.0 % 0-0 Nucleated Red Blood Cell % [facility] ([facility]) ID Date Data Source [id number] 05/07/2020 12:16:00 PM EST [facility] ([facility]) Name Value Range Interpretation Code Description Data Renetta rce(s) Supporting Document(s) istat B-HCG < 5.0 Istat B-HCG [facility] ([facility]) ID Date Data Source [id number] 05/07/2020 12:16:00 PM EST [facility] ([facility]) Name Value Range Interpretation Code Description Data Renetta rce(s) Supporting Document(s) istat B-HCG < 5.0 Istat B-HCG [facility] ([facility]) ID Date Data Source [id number] 05/07/2020 12:16:00 PM EST [place] ([facility]) Name Value Range Interpretation Code Description Data Renetta rce(s) Supporting Document(s) istat B-HCG < 5.0 Istat B-HCG [place] ([facility]) ID Date Data Source [id number] 02/14/2020 09:18:05 AM EDT [facility] Measurements & CalculationsHeight: 62 inches (5 ft. 2 in.) 157.48 cm Weight: 271 pounds 123.18 kg Body Mass Index (BMI): 49.75BMI Interpretation: Morbidly ObeseBody Surface Area (BSA): 2.18Weight Management Education Done (Nutrition/Physical Activity)Vital SignsTemperature: 97.4FPulse Rate: 96 beats/minuteRespiratory Rate: 16 respirations/minuteBlood Pressure: 139/99 O2 Saturation: 96% Vital Signs performed by: Bre Joel MA, February 14, 2020 9:24 AMInitial Intake Information From: patientRoom #: 14Infectious Disease / Travel ScreeningRecent travel for you or any close contacts? NoHave you had any close contact with anyone diagnosed with or under investigation for COVID-19 (coronavirus)? NoFever? NoRespiratory symptoms: cough, cold, congestion, shortness of breath, difficulty breathing? YesLoss of smell? NoLoss of taste? NoDetails: chronic cough when smoking Smoking, Tobacco, Vaping or Smoke Exposure StatusSmoke Status: current every day smokerTobacco Use: YesAdv to Quit: YesDo you vape? YesCessation advice given: YesWhat is in your device? nicotineFrequency: current every day vaperMenstrual HistoryAny possibility of ? NoComments: [facility]renaHealthcare HistorySince your last office visit...Have you been admitted to the hospital? NoHave you been to an emergency room (ER) or urgent care clinic? No - [facility]- [facility] infectionEmergency room (ER) or urgent care date reported today: 04/2018Have you seen another healthcare provider? Yes - [facility] Have you seen a dentist? No - maccueDental exam date reported today: 12/2015Intake performed by: Bre Joel MA, February 14, 2020 9:21 AMRate Your HealthIn general, would you say your health is? FairPain AssessmentAre you currently having any pain which... You would like your provider to address? Yes Affects your activity level? YesDepression Screening - PHQ-2Over the last two weeks, have you... Had little interest or pleasure in doing things? Not at all Been feeling down, depressed, or hopeless? Not at all PHQ-2 Score: 0Anxiety Screening - ROBBIE-2Over the last two weeks, have you been... Feeling nervous, anxious, or on edge? Not at all Unable to stop or control worrying? Not at all ROBBIE-2 Score: 0Pain AssessmentPain ScaleNumeric Rating Scale: 9 / 10Location: low back Duration: chronicFrequency: DailyCharacter/Quality: . shooting, tight Is the pain radiating? YesTo what body part(s) is the pain radiating? edson letsScreening, Brief Intervention, & Referral to Treatment (SBIRT)Pre-Screening Questions How many times have you have 4 or more drinks in a day? 0How many times have you used an illegal drug or used a prescription medication for a non-medical reason? 0Performed by: Bre Joel MA, February 14, 2020 9:22 AMPatient History Medical History:AnxietyDepressionBipolar disorderBorn with heart murmorPTSDSurgical History:Tubal ligationFamily History:No known family historySocial/Personal History: Advised to Quit/Tobacco Education: YesChief Complaintlab resultsHistory of Present Illness (HPI)Having issues for the past month with nausea after eating. Some early satiety. Denies dysphagia. Denies weight loss. Has gained weight on our scale.Labs look good except for low Vitamin D. Have encouraged her to start OTC Vitamin D 1000 units bid.HPI performed by: David Champagne MD, February 14, 2020 9:55 AMTransitions of Care InboundProblem ReviewProblem List was reviewed and/or updated during this visit.Medication Reconciliation & ReviewMedication List was reviewed and/or updated during this visit, including review of any flcv-slq-ulibaeg medications, herbal therapies, and/or supplements.Allergy ReviewAllergy List was reviewed and/or updated during this visit.Adult Preventive CareProvider Calculated and Reviewed all Clinical Protocols for patient today. Screening Tobacco Screening: Smoking Status: current every day smoker (02/14/2020) Tobacco Use: Currently (02/14/2020) Advised to Quit: Yes (02/14/2020)Labs/Meds/Other Counseling-Nutrition and Physical Activity:BMI Interpretation: Morbidly Obese (02/14/2020) Counseling: Done (02/14/2020) Physical Activity: Done (02/14/2020)Review of Systems General: Denies chills, dizziness, fatigue, fever. Cardiovascular: Denies chest pain. Respiratory: Denies difficulty breathing, shortness of breath. Gastrointestinal: Complains of nausea. Denies diarrhea, constipation. Genitourinary: Denies pain with urination, urinary frequency, urinary urgency. Physical ExamGeneral Appearance: well nourished, well hydrated, no acute distressRespiratory, Auscultation: clear to auscultation bilaterally; no rales, rhonchi, or wheezesRespiratory, Effort: no intercostal retractions or use of accessory musclesCardiovascular, Auscultation: S1, S2 audible; no murmur, rub, or gallop; RRRGait & Station: normalSkin, Inspection: no rashes, lesions, or ulcerationsOrientation: oriented to time, place, and personMood & Affect: no depression, anxiety, or agitationJudgment & Insight: intactCare Management Plan Transitions of CareInboundRate Your HealthIn general, would you say your health is? FairAssessment & Plan Problems:Assessed:Gastritis (ICD-535.50) (ICD10- K29.70) Assessment: Instructions: Having some nausea and early satiety for the past month.I have encouraged frequent small meals and bland foods and smoking cessation.Recheck one month, sooner as needed.If this persists may need medications and a possible GI workup.Patient Instructions/Care Plan: Gastritis: Having some nausea and early satiety for the past month.I have encouraged frequent small meals and bland foods and smoking cessation.Recheck one month, sooner as needed.If this persists may need medications and a possible GI workup. Plan developed in collaboration with patient and/or familyMedic ations:QUETIAPINE FUMARATE 300 MG ORAL TABLETPROPRANOLOL HCL 10 MG ORAL TABLETCYCLOBENZAPRINE HCL 10 MG ORAL TABLETMedication Changes:Added: PROPRANOLOL HCL 10 MG ORAL TABLET-bid prnQUETIAPINE FUMARATE 300 MG ORAL TABLET-one tab at bedtimeRemoved:* VERRUCA-150mg once a month, LEVOCETIRIZINE DIHYDROCHLORIDE 5 MG ORAL TABLET-take 1 tab po qd, BENADRYL ALLERGY 25 MG ORAL CAPSULE-2 TABS PO at bedtimeAllergies:* GLUTEN (Critical)* LATEX (Critical)Orders:Adult - Ofc Vst, EST, Level III [CPT-05714] Name Value Range Interpretation Code Description Data Renetta rce(s) Supporting Document(s) ID Date Data Source [id number] 02/13/2020 02:28:36 PM EDT [facility] Current Problems: DENTAL CARIES EXTENDIN G INTO PULP (ICD-521.03) (ICD10- K02.63)Chronic low back pain (ICD-724.2) (RSR51-H26.5)Other abnormal glucose (WPN22-S77.09)Vaccination (ICD-V05.9) (HGV19-E71)Screening for malignant neoplasms of the cervix (ICD-V76.2) (SJK15-S47.4)Lumbago with sciatica, unspecified side (ICD-724.2) (CSM60-B75.40)Galactorrhea (WCQ77-F51.6)Pain in joints of unspecified hand (AXC98-J71.549)Infective otitis externa of left ear (EED64-U80.392)Atypical chest pain (ICD-786.59) (WJY01-S22.89)Cough (ICD-786.2) (NTJ57-E72)Bipolar I disorder, most recent episode (or current) hypomanic, in full remission (ICD-296.46) (RPZ36-W70.74)Pain in right foot (ICD10- M79.671)Hoarseness, chronic (ICD-784.42) (MAZ45-E21.0)Gastritis (ICD-535.50) (FOZ14-H29.70)Post traumatic stress disorder (ICD-309.81) (ICD10- F43.10)Procedure and treatment not carried out due to patient leaving prior to being seen by health care provider (ICD-V64.06) (FAW52-X47.21)Food allergy (ICD- V15.05) (RMC18-U60.018)Pruritic condition NEC (ICD-698.9) (ICD10- L29.8)Depression, major, moderate (ICD-296.22) (PNK92-N37.1)Otitis externa, acute, right (ICD-380.12) (HLS05-L50.501)Preventative health care (ICD-V70.0) (CTF54-P20.00)ANXIETY DISORDER, GENERALIZED (ICD-300.02) (YJW41-G37.1)Impacted cerumen, right (ICD-380.4) (NQG11-U87.21)Abdominal pain, mild (ICD-789.00) (IOG07-X86.9)Need for prophylactic vaccination and inoculation against other combinations of diseases (ICD-V06.8) (ZAC90-T90)Vaccine influenza (ICD-V04.8) (OQU19-R65)General Adult Medical Exam WITH Abnormal Findings (over 18) (ICD- V70.0) (MUY62-D25.01)HTN (ICD-401.9) (DIT74-O79)Depression, major (ICD-296.20) (AWK86-L32.9)Tobacco use (ICD-305.1) (NXJ90-V86.0)Problem list reviewed during this update.Current Medications: CYCLOBENZAPRINE HCL 10 MG ORAL TABLET (CYCLOBE NZAPRINE HCL) one tab po TID prm spasm; Route: ORAL* VERRUCA 150mg once a month; Route: ORALLEVOCETIRIZINE DIHYDROCHLORIDE 5 MG ORAL TABLET (LEVOCETIRIZINE DIHYDROCHLORIDE) take 1 tab po qd; Route: ORALBENADRYL ALLERGY 25 MG ORAL CAPSULE (DIPHENHYDRAMINE HCL) 2 TABS PO at bedtime; Route: ORALMedication list reviewed during this update.Current Allergies: * GLUTEN (Critical)* LATEX (Critical)Allergy list reviewed during this update. Dental Chart: Procedures:Type - CDT Code - Description B - (D0140) Limited oral evaluation - problem focused on Tooth # 12 (Performed by Jennifer Frias DDS) B - (D0220) Intraoral, periapical, first radiographic image on Tooth # 12 (Performed by Jennifer Frias DDS) Treatments:Type - CDT Code - Description T - (D7140) Extraction, erupted tooth or exposed root (elevation and/or forceps removal) on Tooth # 12 (Performed by Jennifer Frias DDS) Chart Notes:giovanna (Feb 13 2020 3:09PM): Additional PPE requirements due to COVID-19 in the dental setting, N95, surgical mask, hair covering, gown and shield.S: CC:"I was eating some crunchy popcorn last night and I shattered one of my top teeth on the left side. I have pain all the wy into my ear from it and very sensitive to hot and cold."O: RMHx (-) per pt. is allergic to latex and takes Propanol. HPI: last night. PL:8 BP: 142/89. PA taken #12. #12 badly broken and decayed to gumline, positive to percussion. No PAP, no swelling noted. A: DDS recommends to have #12 extracted by OS. Placed referral to OS. DX:#12 decayed and broken # 12, non restorable.P:refer to OSInformed Pt about new pain management policy of the clinic regarding about narcotic,told pt to alternate Ibuprophen 600- 800mg and tylenol 500mg every 4 to 6 hrs for pain when needed. Assisted By: AM NV: maddie p/Jennifer Shelton DDS by giovanna (02/13/2020 3:09 PM): Tooth Notes and Watches: Assessment & Plan Problems:Added: DENTAL CARIES EXTENDING INTO PULP (ICD-521.03) (KMN47-X00.63)Medications:CYCLOBENZAPRINE HCL 10 MG ORAL TABLETVERRUCALEVOCETIRIZINE DIHYDROCHLORIDE 5 MG ORAL TABLETBENADRYL ALLERGY 25 MG ORAL CAPSULEAllergies:* GLUTEN (Critical)* LATEX (Critical)Orders:Oral Surgery Referral [CPT-05614] Name Value Range Interpretation Code Description Data Renetta rce(s) Supporting Document(s) ID Date Data Source [id number] 02/13/2020 10:53:00 AM EDT [place]) Name Value Range Interpretation Code Description Data Renetta rce(s) Supporting Document(s) cannabinoid screen, blood ++positive++ cutoff:5 Abnorm al (applies to non-numeric results) Cannabinoid Screen, Blood [place] ([facility]) amphetamines screen, blood negative cutoff:50 Amphetami beata Screen, Blood [place] ([facility]) barbiturates screen, blood negative cutoff:0.1 Barbitura stephanie Screen, Blood [place] ([facility]) benzodiazepines screen, blood negative cutoff:20 Benzodiazepines Screen, Blood [place] ([facility]) opiates screen, blood negative cutoff:5 Opiates Screen , Blood [place] ([facility]) cocaine + metab. screen, blood negative cutoff:25 Cocaine + Metab. Screen, Blood [facility]) oxycodone screen negative cutoff:5 Oxycodone Screen AT [facility] ([facility]) cannabinoid confirmation positive . Cannabinoid Confirmation [facility]) phencyclidine screen, blood negative cutoff:8 Phencycl idine Screen, Blood [facility]) carboxy-THC 172.4 NG/mL . Carboxy-thc [place] ([facility]) tetrahydrocannabinol(THC) 12.6 NG/mL . tetrahydro cannabinol(THC) [facility]) cannabidiol negative . Cannabidiol [place] ([facility]) cannabinol negative . Cannabinol [place] ([facility]) hydroxy-THC 4.9 NG/mL . Hydroxy-thc [place] ([facility]) ID Date Data Source [id number] 02/13/2020 10:53:00 AM EDT [facility]) Name Value Range Interpretation Code Description Data Renetta rce(s) Supporting Document(s) amphetamines screen, blood negative cutoff:50 Amphetami beata Screen, Blood [facility]) barbiturates screen, blood negative cutoff:0.1 Barbitura stephanie Screen, Blood [facility]) cocaine + metab. screen, blood negative cutoff:25 Cocaine + Metab. Screen, Blood [facility]) benzodiazepines screen, blood negative cutoff:20 Benzodiazepines Screen, Blood [facility]) cannabinoid screen, blood ++positive++ cutoff:5 Abnorm al (applies to non-numeric results) Cannabinoid Screen, Blood [place] ([facility]) opiates screen, blood negative cutoff:5 Opiates Screen , Blood [facility]) oxycodone screen negative cutoff:5 Oxycodone Screen AT [facility] ([facility]) cannabinoid confirmation positive . Cannabinoid Confirmation [place] ([facility]) tetrahydrocannabinol(THC) 12.6 NG/mL . tetrahydro cannabinol(THC) [facility]) phencyclidine screen, blood negative cutoff:8 Phencycl idine Screen, Blood [place] ([facility]) carboxy-THC 172.4 NG/mL . Carboxy-thc [place] ([facility]) hydroxy-THC 4.9 NG/mL . Hydroxy-thc [place] ([facility]) cannabinol negative . Cannabinol [place] ([facility]) cannabidiol negative . Cannabidiol [place] ([facility]) ID Date Data Source [id number] 02/13/2020 10:53:00 AM EDT [place] ([facility]) Name Value Range Interpretation Code Description Data Renetta rce(s) Supporting Document(s) benzodiazepines screen, blood negative cutoff:20 Benzodiazepines Screen, Blood [place] ([facility]) barbiturates screen, blood negative cutoff:0.1 Barbitura stephanie Screen, Blood [facility]) amphetamines screen, blood negative cutoff:50 Amphetami beata Screen, Blood [place] ([facility]) cannabinoid screen, blood ++positive++ cutoff:5 Abnorm al (applies to non-numeric results) Cannabinoid Screen, Blood [place] ([facility]) oxycodone screen negative cutoff:5 Oxycodone Screen AT [facility]) phencyclidine screen, blood negative cutoff:8 Phencycl idine Screen, Blood [facility]) cocaine + metab. screen, blood negative cutoff:25 Cocaine + Metab. Screen, Blood [facility]) cannabinoid confirmation positive . Cannabinoid Confirmation [facility]) opiates screen, blood negative cutoff:5 Opiates Screen , Blood [place] ([facility]) carboxy-THC 172.4 NG/mL . Carboxy-thc [place] ([facility]) hydroxy-THC 4.9 NG/mL . Hydroxy-thc [place] ([facility]) cannabinol negative . Cannabinol [place] ([facility]) tetrahydrocannabinol(THC) 12.6 NG/mL . tetrahydro cannabinol(THC) [facility]) cannabidiol negative . Cannabidiol [place] ([facility]) ID Date Data Source [id number] 02/13/2020 10:53:00 AM EDT [facility]) Name Value Range Interpretation Code Description Data Renetta rce(s) Supporting Document(s) amphetamines screen, blood negative cutoff:50 Amphetami beata Screen, Blood [place] ([facility]) cocaine + metab. screen, blood negative cutoff:25 Cocaine + Metab. Screen, Blood [facility]) cannabinoid screen, blood ++positive++ cutoff:5 Abnorm al (applies to non-numeric results) Cannabinoid Screen, Blood [place] ([facility]) barbiturates screen, blood negative cutoff:0.1 Barbitura stephanie Screen, Blood [facility]) benzodiazepines screen, blood negative cutoff:20 Benzodiazepines Screen, Blood [facility]) opiates screen, blood negative cutoff:5 Opiates Screen , Blood [facility]) cannabinoid confirmation positive . Cannabinoid Confirmation [facility]) phencyclidine screen, blood negative cutoff:8 Phencycl idine Screen, Blood [facility]) oxycodone screen negative cutoff:5 Oxycodone Screen AT [facility]) tetrahydrocannabinol(THC) 12.6 NG/mL . tetrahydro cannabinol(THC) [facility]) carboxy-THC 172.4 NG/mL . Carboxy-thc [place] ([facility]) hydroxy-THC 4.9 NG/mL . Hydroxy-thc [place] ([facility]) cannabinol negative . Cannabinol [place] ([facility]) cannabidiol negative . Cannabidiol [place] ([facility]) ID Date Data Source [id number] 02/13/2020 10:53:00 AM EDT [facility]) Name Value Range Interpretation Code Description Data Renetta rce(s) Supporting Document(s) cannabinoid screen, blood ++positive++ cutoff:5 Abnorm al (applies to non-numeric results) Cannabinoid Screen, Blood [place] ([facility]) amphetamines screen, blood negative cutoff:50 Amphetami beata Screen, Blood [place] ([facility]) barbiturates screen, blood negative cutoff:0.1 Barbitura stephanie Screen, Blood [place] ([facility]) benzodiazepines screen, blood negative cutoff:20 Benzodiazepines Screen, Blood [place] ([facility]) cocaine + metab. screen, blood negative cutoff:25 Cocaine + Metab. Screen, Blood [place] ([facility]) oxycodone screen negative cutoff:5 Oxycodone Screen AT [facility]) tetrahydrocannabinol(THC) 12.6 NG/mL . tetrahydro cannabinol(THC) [facility]) opiates screen, blood negative cutoff:5 Opiates Screen , Blood [place] ([facility]) phencyclidine screen, blood negative cutoff:8 Phencycl idine Screen, Blood [place] ([facility]) cannabinoid confirmation positive . Cannabinoid Confirmation [place] ([facility]) cannabinol negative . Cannabinol [place] ([facility]) hydroxy-THC 4.9 NG/mL . Hydroxy-thc [place] ([facility]) cannabidiol negative . Cannabidiol [place] ([facility]) carboxy-THC 172.4 NG/mL . Carboxy-thc [place] ([facility]) ID Date Data Source [id number] 02/13/2020 10:52:00 AM EDT [facility]) Name Value Range Interpretation Code Description Data Renetta rce(s) Supporting Document(s) vitamin B1 level whole blood 86.1 nmol/L 66.5-200.0 Vitamin B1 Level Whole Blood [facility]) ID Date Data Source [id number] 02/13/2020 10:52:00 AM EDT [facility]) Name Value Range Interpretation Code Description Data Renetta rce(s) Supporting Document(s) specimen type . Specimen Type [place] ([facility]) amphetamine blood screen negative . Amphetamine Blood Screen [place] ([facility]) ID Date Data Source [id number] 02/13/2020 10:52:00 AM EDT [place] ([facility]) Name Value Range Interpretation Code Description Data Renetta rce(s) Supporting Document(s) vitamin B1 level whole blood 86.1 nmol/L 66.5-200.0 Vitamin B1 Level Whole Blood [place] ([facility]) ID Date Data Source [id number] 02/13/2020 10:52[facility] Name Value Range Interpretation Code Description Data Renetta rce(s) Supporting Document(s) specimen type . Specimen Type [place] ([facility]) amphetamine blood screen negative . Amphetamine Blood Screen [place] ([facility]) ID Date Data Source [id number] 02/13/2020 10:52:00 [facility] Name Value Range Interpretation Code Description Data Renetta rce(s) Supporting Document(s) vitamin B1 level whole blood 86.1 nmol/L 66.5-200.0 Vitamin B1 Level Whole Blood [place] ([facility]) ID Date Data Source [id number] 02/13/2020 10:52:00 AM EDT [place] ([facility]) Name Value Range Interpretation Code Description Data Renetta rce(s) Supporting Document(s) amphetamine blood screen negative . Amphetamine Blood Screen [place] ([facility]) specimen type . Specimen Type [place] ([facility]) ID Date Data Source [id number] 02/13/2020 10:52:00 [facility] Name Value Range Interpretation Code Description Data Renetta rce(s) Supporting Document(s) vitamin B1 level whole blood 86.1 nmol/L 66.5-200.0 Vitamin B1 Level Whole Blood [place] ([facility]) ID Date Data Source [id number] 02/13/2020 10:52:00 AM EDT [facility]) Name Value Range Interpretation Code Description Data Renetta rce(s) Supporting Document(s) specimen type . Specimen Type [place] ([facility]) amphetamine blood screen negative . Amphetamine Blood Screen [place] ([facility]) ID Date Data Source [id number] 02/13/2020 10:52:00 AM EDT [place] ([facility]) Name Value Range Interpretation Code Description Data Renetta rce(s) Supporting Document(s) vitamin B1 level whole blood 86.1 nmol/L 66.5-200.0 Vitamin B1 Level Whole Blood [place] ([facility]) ID Date Data Source [id number] 02/13/2020 10:52:00 AM EDT [facility]) Name Value Range Interpretation Code Description Data Renetta rce(s) Supporting Document(s) specimen type . Specimen Type [place] ([facility]) amphetamine blood screen negative . Amphetamine Blood Screen [place] ([facility]) ID Date Data Source [id number] 02/13/2020 10:52:00 AM EDT [facility] Name Value Range Interpretation Code Description Data Renetta rce(s) Supporting Document(s) HCT 41.3 % 36.0-47.0 N [facility] HGB 14.5 g/dL 12.0-15.5 N [facility] MCH 35.1 G/DL pg 32.0-36.5 N [facility] MCHC 29.4 PG % 27.0-33.0 N [facility] PLATELETS 249 10 10*3/mm3 150-450 N [facility] RBC 4.93 10 10*6/mm3 4.00-5.40 N [facility] RDW 13.0 % 11.5-14.5 N [facility] WBC TOTAL 9.0 4.0-10.0 N [facility] ID Date Data Source [id number] 02/13/2020 10:52:00 AM EDT [facility] Name Value Range Interpretation Code Description Data Renetta rce(s) Supporting Document(s) HGBA1C 5.6 % N [facility] ID Date Data Source [id number] 02/13/2020 10:52:00 AM EDT [facility] Name Value Range Interpretation Code Description Data Renetta rce(s) Supporting Document(s) VIT D25 TOT 22.5 ng/mL 30.0-100.[address] [facility] BG FASTING 96 mg/dL 70-100 N [facility] TSH 1.410 microintl units/mL 0.358-3.740 N [facility] Procedure Social History Code Duration Value Status Description Data Source(s ) Smoking 02/13/2021 12:00:00 AM EDT Unknown if ever smoked comp leted Unknown if ever smoked [facility] [facility]) Smoking 11/21/2020 12:00:00 AM EDT Unknown if ever smoked comp leted Unknown if ever smoked [place] ([facility]) Smoking 10/30/2020 12:00:00 AM EDT Unknown if ever smoked comp leted Unknown if ever smoked [facility] ([facility]) Smoking 10/16/2020 12:00:00 AM EDT Unknown if ever smoked comp leted Unknown if ever smoked [facility] ([facility]) Smoking 2020 12:00:00 AM EDT Unknown if ever smoked comp leted Unknown if ever smoked [facility] ([facility]) Smoking 05/30/2020 12:00:00 AM EST Unknown if ever smoked comp leted Unknown if ever smoked [facility] ([facility]) Smoking 04/16/2020 12:00:00 AM EST Unknown if ever smoked comp leted Unknown if ever smoked [facility] ([facility]) Smoking 03/12/2020 12:00:00 AM EST Unknown if ever smoked comp leted Unknown if ever smoked [facility] ([facility]) Smoking 02/13/2020 12:00:00 AM EDT Unknown if ever smoked comp leted Unknown if ever smoked [place] ([facility]) Vital Signs ID Date Data Source UNK Name Value Range Interpretation Code Description Data Source(s) Body weight Measured 295.00 lbs Normal (applies to n on-numeric results) 295.00 lbs [place] ([facility]) Diastolic blood pressure 90 mm[Hg] 90 mm[Hg] [place] [facility]) Body height 62 [in_i] 62 [in_i] [place] [facility]) Body mass index (BMI) [Ratio] 54 kg/m2 54 kg/ m2 NERY ([facility]) Systolic blood pressure 129 mm[Hg] 129 mm[Hg] A [facility] ([facility]) Body weight 4724 [oz_av] 4724 [oz_av] NERY ([facility]) Diastolic blood pressure 88 mm[Hg] 88 mm[Hg] NERY ([facility]) Body height 62 [in_i] 62 [in_i] NERY ([facility]) Body mass index (BMI) [Ratio] 53.1 kg/m2 53.1 k g/m2 NERY ([facility]) Systolic blood pressure 134 mm[Hg] 134 mm[Hg] A [facility] ([facility]) Body weight 4642 [oz_av] 4642 [oz_av] NERY ([facility]) Diastolic blood pressure 88 mm[Hg] 88 mm[Hg] NERY ([facility]) Body height 62 [in_i] 62 [in_i] NERY ([facility]) Body mass index (BMI) [Ratio] 53.1 kg/m2 53.1 k g/m2 NERY ([facility]) Systolic blood pressure 134 mm[Hg] 134 mm[Hg] Carlos CORNELIUS ([facility]) Body weight 4642 [oz_av] 4642 [oz_av] NERY ([facility]) Body height 0.00 in Normal (applies to non-numeric resu lts) 0.00 in [facility] ([facility]) Body weight Measured 270.00 lbs Normal (applies to n on-numeric results) 270.00 lbs [facility] ([facility]) Body mass index (BMI) [Ratio] 0.00 kg/m2 No rmal (applies to non-numeric results) 0.00 kg/m2 [facility] ([facility]) Systolic blood pressure 0 mm[Hg] Normal (applies t o non-numeric results) 0 mm[Hg] [facility]) Diastolic blood pressure 0 mm[Hg] Normal (applies to non-numeric results) 0 mm[Hg] [facility] ([facility]) Body mass index (BMI) [Ratio] 45.0 kg/m2 45.0 k g/m2 MED[facility] ([facility]) Body temperature 97.1 [degF] 97.1 [degF] [facility] ([facility]) Body height 65.5 [in_i] 65.5 [in_i] MEDENT ([facility]) 5'5.50" Body weight 274.50 [lb_av] 274.50 [lb_av] MEDEN T ([facility]) Body height 0.00 in Normal (applies to non-numeric resu lts) 0.00 in [facility] ([facility]) Body weight Measured 0.00 lbs Normal (applies to n on-numeric results) 0.00 lbs [facility]) Body mass index (BMI) [Ratio] 0.00 kg/m2 No rmal (applies to non-numeric results) 0.00 kg/m2 [facility] ([facility]) Systolic blood pressure 0 mm[Hg] Normal (applies t o non-numeric results) 0 mm[Hg] [facility] ([facility]) Diastolic blood pressure 0 mm[Hg] Normal (applies to non-numeric results) 0 mm[Hg] [facility] ([facility]) Body height 62 [in_i] 62 [in_i] NERY ([facility]) Body height 62 [in_i] 62 [in_i] NERY ([facility]) Body height 62 [in_i] 62 [in_i] NERY ([facility]) Body height 0.00 in Normal (applies to non-numeric resu lts) 0.00 in [facility] ([facility]) Systolic blood pressure 0 mm[Hg] Normal (applies t o non-numeric results) 0 mm[Hg] [facility] ([facility]) Diastolic blood pressure 0 mm[Hg] Normal (applies to non-numeric results) 0 mm[Hg] [facility] ([facility]) Body mass index (BMI) [Ratio] 0.00 kg/m2 No rmal (applies to non-numeric results) 0.00 kg/m2 [facility] ([facility]) Body weight Measured 0.00 lbs Normal (applies to n on-numeric results) 0.00 lbs [facility] ([facility]) Diastolic blood pressure 88 mm[Hg] 88 mm[Hg] NERY ([facility]) Body height 62 [in_i] 62 [in_i] NERY ([facility]) Body mass index (BMI) [Ratio] 50.4 kg/m2 50.4 k g/m2 NERY ([facility]) Systolic blood pressure 130 mm[Hg] 130 mm[Hg] A THENA ([facility]) Body weight 4409.6 [oz_av] 4409.6 [oz_av] ATHEN A ([facility]) Diastolic blood pressure 88 mm[Hg] 88 mm[Hg] NERY ([facility]) Body height 62 [in_i] 62 [in_i] NERY ([facility]) Body mass index (BMI) [Ratio] 50.4 kg/m2 50.4 k g/m2 NERY ([facility]) Systolic blood pressure 130 mm[Hg] 130 mm[Hg] A THE[facility] ([facility]) Body weight 4409.6 [oz_av] 4409.6 [oz_av] ATHEN A ([facility]) Diastolic blood pressure 88 mm[Hg] 88 mm[Hg] NERY ([facility]) Body height 62 [in_i] 62 [in_i] NERY ([facility]) Body mass index (BMI) [Ratio] 50.4 kg/m2 50.4 k g/m2 NERY ([facility]) Systolic blood pressure 130 mm[Hg] 130 mm[Hg] A THENA ([facility]) Body weight 4409.6 [oz_av] 4409.6 [oz_av] ATHEN A ([facility]) Diastolic blood pressure 88 mm[Hg] 88 mm[Hg] NERY ([facility]) Body height 62 [in_i] 62 [in_i] NERY ([facility]) Body mass index (BMI) [Ratio] 50.4 kg/m2 50.4 k g/m2 NERY ([facility]) Systolic blood pressure 130 mm[Hg] 130 mm[Hg] [facility] Body weight 4409.6 [oz_av] 4409.6 [oz_av] ATHEN A ([facility]) Diastolic blood pressure 99 mm[Hg] 99 mm[Hg] NERY ([facility]) Body height 62 [in_i] 62 [in_i] NERY ([facility]) Systolic blood pressure 135 mm[Hg] 135 mm[Hg] A THENA ([facility]) Diastolic blood pressure 99 mm[Hg] 99 mm[Hg] NERY ([facility]) Body height 62 [in_i] 62 [in_i] NERY ([facility]) Systolic blood pressure 135 mm[Hg] 135 mm[Hg] A THE[place] ([facility]) Diastolic blood pressure 99 mm[Hg] 99 mm[Hg] NERY ([facility]) Body height 62 [in_i] 62 [in_i] NERY ([facility]) Systolic blood pressure 135 mm[Hg] 135 mm[Hg] A THE[facility] ([facility]) Diastolic blood pressure 99 mm[Hg] 99 mm[Hg] NERY ([facility]) Body height 62 [in_i] 62 [in_i] NERY ([facility]) Systolic blood pressure 135 mm[Hg] 135 mm[Hg] [facility] Diastolic blood pressure 99 mm[Hg] 99 mm[Hg] NERY ([facility]) Body height 62 [in_i] 62 [in_i] NERY ([facility]) Systolic blood pressure 135 mm[Hg] 135 mm[Hg] A THENA ([facility]) Body height 0.00 in Normal (applies to non-numeric resu lts) 0.00 in [facility] ([facility]) Body weight Measured 0.00 lbs Normal (applies to n on-numeric results) 0.00 lbs [facility] ([facility]) Body mass index (BMI) [Ratio] 0.00 kg/m2 No rmal (applies to non-numeric results) 0.00 kg/m2 [facility] ([facility]) Systolic blood pressure 0 mm[Hg] Normal (applies t o non-numeric results) 0 mm[Hg] [facility] ([facility]) Diastolic blood pressure 0 mm[Hg] Normal (applies to non-numeric results) 0 mm[Hg] [facility] ([facility]) Diastolic blood pressure 99 mm[Hg] 99 mm[Hg] NERY ([facility]) Body height 62 [in_i] 62 [in_i] NERY ([facility]) Body mass index (BMI) [Ratio] 49.75 kg/m2 49.75 kg/m2 NERY ([facility]) Systolic blood pressure 139 mm[Hg] 139 mm[Hg] [facility] Body weight 4336 [oz_av] 4336 [oz_av] NERY ([facility]) Diastolic blood pressure 99 mm[Hg] 99 mm[Hg] NERY ([facility]) Body height 62 [in_i] 62 [in_i] NERY ([facility]) Body mass index (BMI) [Ratio] 49.75 kg/m2 49.75 kg/m2 NERY ([facility]) Systolic blood pressure 139 mm[Hg] 139 mm[Hg] A THENA ([facility]) Body weight 4336 [oz_av] 4336 [oz_av] NERY ([facility]) Body height 0.00 in Normal (applies to non-numeric resu lts) 0.00 in [facility] ([facility]) Body weight Measured 0.00 lbs Normal (applies to n on-numeric results) 0.00 lbs [facility] ([facility]) Body mass index (BMI) [Ratio] 0.00 kg/m2 No rmal (applies to non-numeric results) 0.00 kg/m2 [facility] ([facility]) Systolic blood pressure 0 mm[Hg] Normal (applies t o non-numeric results) 0 mm[Hg] [facility] ([facility]) Diastolic blood pressure 0 mm[Hg] Normal (applies to non-numeric results) 0 mm[Hg] [facility] ([facility]) Patient Treatment Plan of Care Planned Activity Planned Date Details Description Data Source (s) Propranolol Hydrochloride 10 MG Oral Tablet 03/13/2020 12:00:00 AM EST [place] ([facility]) Propranolol Hydrochloride 10 MG Oral Tablet 03/13/2020 12:00:00 AM EST [place] ([facility]) ramelteon 8 MG Oral Tablet A THE[facility] ([facility]) 24 HR quetiapine 300 MG Extended Release Oral Tablet NERY ([facility]) 24 HR quetiapine 150 MG Extended Release Oral Tablet NERY ([facility]) quetiapine 100 MG Oral Tablet NERY ([facility]) Propranolol Hydrochloride 10 MG Oral Tablet NERY ([facility]) Prednisone 20 MG Oral Tablet NERY ([facility]) 24 HR Nicotine 0.583 MG/HR Transdermal Patch NERY ([facility]) Metronidazole 500 MG Oral Tablet NERY ([facility]) Metronidazole 0.0075 MG/MG Vaginal Gel NERY ([facility]) methylprednisolone 4 mg tablets in a dose pack TAKE DIRECTED NERY ([facility]) Methocarbamol 750 MG Oral Tablet NERY ([facility]) meloxicam 15 MG Oral Tablet NERY ([facility]) [place] Carbonate 300 MG Oral Capsule NERY ([facility]) 1.5 ML paliperidone palmitate 156 MG/ML Prefilled Syringe [Invega] NERY ([facility]) 1 ML paliperidone palmitate 156 MG/ML Prefilled Syringe [Invega] NERY ([facility]) gabapentin 300 MG Oral Capsule NERY ([facility]) gabapentin 100 MG Oral Capsule NERY ([facility]) Cyclobenzaprine hydrochloride 10 MG Oral Tablet NERY ([facility]) Clonidine Hydrochloride 0.1 MG Oral Tablet NERY ([facility]) buspirone hydrochloride 10 MG Oral Tablet NERY ([facility]) Amoxicillin 875 MG / Clavulanate 125 MG Oral Tablet NERY ([facility]) ramelteon 8 MG Oral Tablet A [place] ([facility]) 24 HR quetiapine 300 MG Extended Release Oral Tablet NERY ([facility]) quetiapine 100 MG Oral Tablet NERY ([facility]) Propranolol Hydrochloride 10 MG Oral Tablet NERY ([facility]) Prednisone 20 MG Oral Tablet NERY ([facility]) 24 HR Nicotine 0.583 MG/HR Transdermal Patch NERY ([facility]) Metronidazole 500 MG Oral Tablet N[facility] ([facility]) Metronidazole 0.0075 MG/MG Vaginal Gel NERY ([facility]) Methocarbamol 750 MG Oral Tablet N[facility] ([facility]) meloxicam 15 MG Oral Tablet NERY ([facility]) [place] Carbonate 300 MG Oral Capsule NERY ([facility]) 1.5 ML paliperidone palmitate 156 MG/ML Prefilled Syringe [Invega] NERY ([facility]) 1 ML paliperidone palmitate 156 MG/ML Prefilled Syringe [Invega] NERY ([facility]) gabapentin 300 MG Oral Capsule NERY ([facility]) gabapentin 100 MG Oral Capsule NERY ([facility]) Cyclobenzaprine hydrochloride 10 MG Oral Tablet NERY ([facility]) Clonidine Hydrochloride 0.1 MG Oral Tablet NERY ([facility]) buspirone hydrochloride 10 MG Oral Tablet NERY ([facility]) Amoxicillin 875 MG / Clavulanate 125 MG Oral Tablet NERY ([facility]) ramelteon 8 MG Oral Tablet A [facility] ([facility]) 24 HR quetiapine 300 MG Extended Release Oral Tablet NERY ([facility]) 24 HR quetiapine 150 MG Extended Release Oral Tablet NERY ([facility]) quetiapine 100 MG Oral Tablet NERY ([facility]) [place] Carbonate 300 MG Oral Capsule NERY ([facility]) 1.5 ML paliperidone palmitate 156 MG/ML Prefilled Syringe [Invega] NERY ([facility]) 1 ML paliperidone palmitate 156 MG/ML Prefilled Syringe [Invega] NERY ([facility]) Cyclobenzaprine hydrochloride 10 MG Oral Tablet NERY ([facility]) Clonidine Hydrochloride 0.1 MG Oral Tablet NERY ([facility]) buspirone hydrochloride 10 MG Oral Tablet NERY ([facility]) ramelteon 8 MG Oral Tablet A [facility] ([facility]) 24 HR quetiapine 300 MG Extended Release Oral Tablet NERY ([facility]) 24 HR quetiapine 150 MG Extended Release Oral Tablet NERY ([facility]) quetiapine 100 MG Oral Tablet NERY ([facility]) [place] Carbonate 300 MG Oral Capsule NERY ([facility]) 1.5 ML paliperidone palmitate 156 MG/ML Prefilled Syringe [Invega] NERY ([facility]) 1 ML paliperidone palmitate 156 MG/ML Prefilled Syringe [Invega] NERY ([facility]) Cyclobenzaprine hydrochloride 10 MG Oral Tablet NERY ([facility]) Clonidine Hydrochloride 0.1 MG Oral Tablet NERY ([facility]) buspirone hydrochloride 10 MG Oral Tablet NERY ([facility]) ramelteon 8 MG Oral Tablet A [facility] ([facility]) 24 HR quetiapine 150 MG Extended Release Oral Tablet NERY ([facility]) quetiapine 100 MG Oral Tablet NERY ([facility]) [place] Carbonate 300 MG Oral Capsule NERY ([facility]) 1.5 ML paliperidone palmitate 156 MG/ML Prefilled Syringe [Invega] NERY ([facility]) 1 ML paliperidone palmitate 156 MG/ML Prefilled Syringe [Invega] NERY ([facility]) Cyclobenzaprine hydrochloride 10 MG Oral Tablet NERY ([facility]) Clonidine Hydrochloride 0.1 MG Oral Tablet NERY ([facility]) buspirone hydrochloride 10 MG Oral Tablet NERY ([facility])
--- OUTSIDE RECORDS SUMMARY | 2021-02-28 13:15 | CCD ---
Author Author [facility] Organization [facility] Address Unknown Phone Unavailable Care Team Providers Care Senior Storage Administrator Name Role Phone Delia Champagne MD Unavailable [...] Unavailable Delia Champagne MD Unavailable Unavailable Delia Cahmpagne MD Unavailable Unavailable Delia Champagne MD Unavailable [...] Unavailable MCELHERAN, TRISHA PA Unavailable Unavailable MCELHERAN, TRSIHA PA Unavailable Unavailable MCELHERAN, TRISHA PA Unavailable [...] Unavailable MCELHERAN, TRISHA PA Unavailable Unavailable Beasley, Ruby Coffey MD Unavailable Unavailable Beasley, Ruby Coffey MD Unavailable Unavailable Beasley, Ruby Coffey MD Unavailable Unavailable Beasley, Ruby Coffey MD Unavailable Unavailable Beasley, Ruby Coffey MD Unavailable Unavailable Beasley, Ruby Coffey MD Unavailable Unavailable Beasley, Ruby Coffey MD Unavailable Unavailable Beasley, Ruby Coffey MD Unavailable Unavailable Beasley, Ruby Coffey MD Unavailable Unavailable Beasley, Ruby Coffey MD Unavailable Unavailable Beasley, Ruby Coffey MD Unavailable Unavailable Beasley, Ruby Coffey MD Unavailable Unavailable Beasley, Ruby Coffey MD Unavailable Unavailable Beasley, Ruby Coffey MD Unavailable Unavailable Beasley, Ruby Coffey MD Unavailable Unavailable Beasley, Ruby Coffey MD Unavailable Unavailable Beasley, Ruby Coffey MD Unavailable Unavailable Beasley, Ruby Coffey MD Unavailable Unavailable Beasley, Ruby Coffey MD Unavailable Unavailable Beasley, Ruby Coffey MD Unavailable Unavailable Beasley, Ruby Coffey MD Unavailable Unavailable Beasley, Ruby Coffey MD Unavailable Unavailable Beasley, Ruby Coffey MD Unavailable Unavailable Beasley, Ruby Coffey MD Unavailable Unavailable Beasley, Ruby Coffey MD Unavailable Unavailable Beasley, Ruby Coffey MD Unavailable Unavailable Beasley, Ruby Coffey MD Unavailable Unavailable Beasley, Ruby Coffey MD Unavailable Unavailable Beasley, Ruby Coffey MD Unavailable Unavailable Beasley, Ruby Coffey MD Unavailable Unavailable Beasley, Ruby Coffey MD Unavailable Unavailable Beasley, Ruby Coffey MD Unavailable Unavailable Beasley, Ruby Coffey MD Unavailable Unavailable Beasley, Ruby Coffey MD Unavailable Unavailable Beasley, Ruby Coffey MD Unavailable Unavailable Beasley, Ruby Coffey MD Unavailable Unavailable Beasley, Ruby Coffey MD Unavailable Unavailable Beasley, Ruby Coffey MD Unavailable Unavailable Beasley, Ruby Coffey MD Unavailable Unavailable Beasley, Ruby Coffey MD Unavailable Unavailable Beasley, Ruby Coffey MD Unavailable Unavailable Beasley, Ruby Coffey MD Unavailable Unavailable Beasley, Ruby Coffey MD Unavailable Unavailable Beasley, Ruby Coffey MD Unavailable Unavailable Beasley, Ruby Coffey MD Unavailable Unavailable Beasley, Ruby Coffey MD Unavailable Unavailable Beasley, Ruby Coffey MD Unavailable Unavailable Beasley, Ruby Coffey MD Unavailable Unavailable Beasley, Ruby Coffey MD Unavailable Unavailable Beasley, Ruby Coffey MD Unavailable Unavailable [facility] Unavailable Scordo, M Amy PA Unavailable Unavailable [...] M Amy PA Unavailable Unavailable MACQUEEN, SONIYA AUTO PAINTER HELPER Unavailable Unavailable MACQUEEN, SONIYA AUTO PAINTER HELPER Unavailable Unavailable MACQUEEN, SONIYA AUTO PAINTER HELPER Unavailable Unavailable MACQUEEN, SONIYA AUTO PAINTER HELPER Unavailable Unavailable MACQUEEN, SONIYA AUTO PAINTER HELPER Unavailable Unavailable MACQUEEN, SONIYA AUTO PAINTER HELPER Unavailable Unavailable MACQUEEN, SONIYA AUTO PAINTER HELPER Unavailable Unavailable MACQUEEN, SONIYA AUTO PAINTER HELPER Unavailable Unavailable MACQUEEN, SONIYA AUTO PAINTER HELPER Unavailable Unavailable MACQUEEN, SONIYA AUTO PAINTER HELPER Unavailable Unavailable EGORHO, F LUMA FPMHNP Unavailable [...] M CYNTHIA PA Unavailable Unavailable Gisele COLIN DEBRA Unavailable Unavailable Gisele COLIN Unavailable Unavailable Gisele COLIN Unavailable Unavailable Gisele COLIN Unavailable Unavailable Re-disclosure [...] is protected by Article 27-F of the [facility] Public Health law. If you continue you may have access to information: Regarding HIV / AIDS; Provided by facilities licensed or operated by the [facility] Office of Mental Health; or Provided by the [facility] Office for People With Developmental Disabilities. If such information is present, then the following [facility] mandated warning applies: This information has been [...] law may result in a fine or group home sentence or both. A general authorization for the release of medical or other information is NOT sufficient authorization for further disc losure. Allergies and Adverse Reactions Type Description Substance Reaction Status Data Source(s ) Miscellaneous allergy LATEX LATEX [facility] Family History Family Member Name Family Member Gender Family Member Status Date o f Status Description Data Source(s) Unknown Unknown Problem [facility] ([facility]) Encounters Encounter Providers Location Date Indications Data Source(s ) Outpatient Attender: SONIYA WALDEN NP [facility] Juma beltran 02/13/2021 11:30:00 AM EDT - 02/13/2021 11:30:00 AM EDT [facility] ([facility]) Attender: SONIYA WALDEN NP 02/13/2021 12:00:00 AM EDT [facility] ([facility]) David Champagne MD: [address] [place] [phone], Ph. Attender: David Champagne MD [facility] 02/12/2021 12:00:00 AM EDT [facility] ([facility]) OFFICE OUTPATIENT VISIT 15 MINUTES Attender: TRISHA RICHARDSON Physical Therapy 01/08/2021 08:45:00 AM EDT [facility] ([facility]) Outpatient Attender: TRISHA RICHARDSON Physical Therapy 11/27/2020 05:30:00 PM EDT [facility] ([facility]) David Champagne MD: [address] [place] [phone], Ph. Attender: David Champagne MD [facility] Medical 11/27/2020 12:00:00 AM EDT [facility] ([facility]) David Champagne MD: [address] [place] [phone], Ph. Attender: David Champagne MD [facility] 11/27/2020 12:00:00 AM EDT [facility] ([facility]) Psychiatric Diagnostic Evaluation (Non-Medical) Attender: Christiano Liriano [facility] Belen 11/21/2020 04:00:00 AM EDT - 11/21/2020 04:00:00 AM EDT [facility] ([facility]) Attender: Joey Liriano 11/21/2020 12:00:00 AM EDT [facility] ([facility]) Outpatient Attender: SONIYA WALDEN NP [facility] Juma ruby 10/30/2020 01:00:00 AM EDT - 10/30/2020 01:00:00 AM EDT [facility] ([facility]) Attender: SONIYA WALDEN NP 10/30/2020 12:00:00 AM EDT [facility] ([facility]) Outpatient Attender: SONIYA WALDEN NP [facility] Juma l 10/16/2020 03:00:00 AM EDT - 10/16/2020 03:00:00 AM EDT [facility] ([facility]) Attender: SONIYA WALDEN NP 10/16/2020 12:00:00 AM EDT [facility] ([facility]) OFFICE OUTPATIENT VISIT 15 MINUTES Attender: TRISHA RICHARDSON Physical Therapy 10/03/2020 03:45:00 PM EDT [facility] ([facility]) Outpatient Attender: SONIYA WALDEN NP [facility] Juma l 2020 09:30:00 AM EDT - 2020 09:30:00 AM EDT [facility] ([facility]) Attender: SONIYA WALDEN NP 2020 12:00:00 AM EDT [facility] ([facility]) Outpatient Attender: CYNTHIA RICHARDSON Physical Therapy 10/2020 03:15:00 PM EDT [facility] ([facility]) Outpatient Attender: CYNTHIA RICHARDSON Physical Therapy 06/03 04:00:00 PM EST [facility] ([facility]) Outpatient Attender: Alexx Beasley MD Physical Therapy 06/06/2020 0 1:30:00 PM EST [facility] ([facility]) Outpatient Attender: SONIYA WALDEN NP [facility] Juma l 05/30/2020 11:00:00 AM EST - 05/30/2020 11:00:00 AM EST [facility] ([facility]) Attender: SONIYA WALDEN NP 05/30/2020 12:00:00 AM EST [facility] ([facility]) SAPPHIRE ThompsonC: [address] [place] [phone], Ph. Attender: Amy Scordo PA [facility] Medical 05/20/2020 12:00:00 AM EST [facility] ([facility]) Amy Perez PA-C: [address] [place] [phone], Ph. Attender: Amy RICHARDSON [facility] Medical 05/20/2020 12:00:00 AM EST [facility] ([facility]) Amy Perez PA-C: [address] [place] [address], Ph. Attender: Amy RICHARDSON [facility] Medical 05/20/2020 12:00:00 AM EST [facility] ([facility]) Outpatient Attender: LUMA BRICEÑO [facility] 04/16/2020 09:30:00 AM EST - 04/16/2020 09:30:00 AM EST [facility] ([facility]) [facility]/16/[facility] 12:00: 00 AM EST [facility] ([facility]) David Champagne MD: [address] [place] [phone], Ph. Attender: David Champagne MD [facility] 04/10/2020 12:00:00 AM EST [facility] ([facility]) David Champagne MD: [address] [place] [phone], Ph. Attender: David Champagne MD [facility] 04/10/2020 12:00:00 AM EST [facility] ([facility]) David Champagne MD: [address] [place] [phone], Ph. Attender: David Champagne MD [facility] 04/10/2020 12:00:00 AM EST [facility] ([facility]) David Champagne MD: [address] [place] [phone], Ph. Attender: David Champagne MD [facility] 04/10/2020 12:00:00 AM EST [facility] ([facility]) Outpatient Attender: Amy RICHARDSON 03/13/2020 08:52:01 AM EST [facility] David Champagne MD: [address] [place] [phone], Ph. Attender: David Champagne MD [facility] 03/13/2020 12:00:00 AM EST [facility] ([facility]) David Champagne MD: [address] [place] [phone], Ph. Attender: David Champagne MD [facility] 03/13/2020 12:00:00 AM EST [facility] ([facility]) David Champagne MD: [address] [place] [phone], Ph. Attender: David Champagne MD [facility] 03/13/2020 12:00:00 AM EST [facility] ([facility]) David Champagne MD: [address] [place] [phone], Ph. Attender: David Champagne MD [facility] 03/13/2020 12:00:00 AM EST [facility] ([facility]) David Champagne MD: [address] [place] [phone], Ph. Attender: David Champagne MD [facility] 03/13/2020 12:00:00 AM EST [facility] ([facility]) Outpatient Attender: LUMA BRICEÑO [facility] 03/12/2020 10:00:00 AM EST - 03/12/2020 10:00:00 AM EST [facility] ([facility] Attender: LUMA ASTUDILLO 03/12/2020 12:00: 00 AM EST [facility] ([facility]) Outpatient Attender: Amy RICHARDSON FP 02/16/2020 04:01:00 PM EDT [facility] Outpatient Attender: Amy RICHARDSON FP 02/14/2020 09:59:01 AM EDT [facility] Outpatient Attender: Amy RICHARDSON FP 02/14/2020 09:07:00 AM EDT [facility] Outpatient Attender: Amy RICHADRSON FP 02/14/2020 08:16:03 AM EDT [facility] Outpatient Attender: Amy RICHARDSON FP 02/14/2020 08:16:02 AM EDT [facility] Outpatient Attender: Amy RICHARDSON FP 02/14/2020 08:15:03 AM EDT [facility] Outpatient Attender: Amy RICHARDSON FP 02/14/2020 12:00:09 AM EDT [facility] Outpatient Attender: Amy RICHARDSON FP 02/13/2020 03:12:02 PM EDT [facility] Outpatient Attender: Amy RICHARDSON FP 02/13/2020 03:11:01 PM EDT [facility] Outpatient Attender: LUMA ASTUDILLO [facility] J ail 02/13/2020 09:00:00 AM EDT - 02/13/2020 09:00:00 AM EDT [facility] ([facility]) Attender: LUMA ASTUDILLO 02/13/2020 12:00: 00 AM EDT [facility] ([facility]) Outpatient Attender: Amy RICHARDSON FP 01/30/2020 01:11:02 PM EDT [facility] Outpatient Attender: Amy RICHARDSON FP 01/03/2020 09:35:01 AM EDT [facility] Functional Status Immunizations Vaccine Date Status Description Data Source(s) influenza, intradermal, quadrivalent, preservative mary e 02/12/2021 12:00:00 AM EDT completed 02/12/2021 [facility] ([facility]) COVID-19, mRNA, LNP-S, PF, 100 mcg/0.5 mL dose 10/01/2020 12 :00:00 AM EDT completed 10/01/2020 [facility] ([facility]) COVID-19 VACCINE Moderna 10/01/2020 12:00:00 AM EDT completed [place] Vaccine Series Complete: YESThis Data wa s Submitted to [facility] Via [employer]. COVID-19, mRNA, LNP-S, PF, 100 mcg/0.5 mL dose 09/03/2020 12 :00:00 AM EDT completed 09/03/2020 [facility] ([facility]) COVID-19 VACCINE Moderna 09/03/2020 12:00:00 AM EDT completed [place] Vaccine Series Complete: NOThis Data was Submitted to [facility] Via [employer]. New in 2011. IIV4 03/13/2020 10:49:00 AM EST completed .5 mL [facility] ([facility]) New in 2011. IIV4 03/13/2020 10:49:00 AM EST completed .5 mL [facility] ([facility]) New in 2011. IIV4 03/13/2020 10:49:00 AM EST completed .5 mL [facility] ([facility]) New in 2011. IIV4 03/13/2020 10:49:00 AM EST completed .5 mL [facility] ([facility]) Medications Medication Brand Name Start Date Product Form Dose Route Admi nistrative Instructions Pharmacy Instructions Status Indications Reaction Description Data Source(s) Methylprednisolone 4 MG Oral Tablet [Medrol] Medrol 12:00:00 AM EDT active [facility] ( [facility] ) Cyclobenzaprine hydrochloride 10 MG Oral Tablet Cyclobenzapr ine HCL 11/07/2020 12:00:00 AM EDT active M EDENT ([facility] ) 24 HR quetiapine 300 MG Extended Release Oral Tablet [Seroqu el] Seroquel XR 10/16/2020 12:00:00 AM EDT 300 mg by mouth completed <td ID="MedicationRxNorm_1">716381</td><td ID="MedicationMedication_1">Seroquel XR</td><td ID="MedicationRoute_1">by mouth</td><td ID="MedicationRouteConcept_1">O48332</td><td ID="MedicationStartDate_1">10/16/2020</td><td ID="MedicationStopDate_1">03/09/2021</td><td ID="MedicationDosageFrequency_1">every night</td><td ID="MedicationDuration_1">30</td><td ID="MedicationFormulaStrength_1">300 mg</td><td ID="MedicationDosageForm_1">tablet extended release 24 hr</td><td ID="MedicationDosageFormCode_1"></td><td ID="MedicationDosageDescription_1"></td><td ID="MedicationMedicationId_1">[id number]</td><td ID="MedicationAccount_1">[id number]</td><td ID="MedicationNpid_1">[id number]</td><td ID="MedicationAuthorFirstName_1">Sue</td><td ID="MedicationAuthorLastName_1">Rip</td><td ID="MedicationTaxonomyCode_1">[id number]</td><td ID="MedicationTaxonomyDesc_1"> Nurse Practitioner</td><td ID="MedicationPhoneNumber_1">[phone]</td> [facility] ([facility]) 24 HR quetiapine 300 MG Extended Release Oral Tablet [Seroqu el] Seroquel XR 10/16/2020 12:00:00 AM EDT 300 mg by mouth completed <td ID="MedicationRxNorm_2">[id number]</td><td ID="MedicationMedication_2">Seroquel XR</td><td ID="MedicationRoute_2">by mouth</td><td ID="MedicationRouteConcept_2">I11579</td><td ID="MedicationStartDate_2">10/16/2020</td><td ID="MedicationStopDate_2">05/14/2021</td><td ID="MedicationDosageFrequency_2">every night</td><td ID="MedicationDuration_2">30</td><td ID="MedicationFormulaStrength_2">300 mg</td><td ID="MedicationDosageForm_2">tablet extended release 24 hr</td><td ID="MedicationDosageFormCode_2"></td><td ID="MedicationDosageDescription_2"></td><td ID="MedicationMedicationId_2">[id number]</td><td ID="MedicationAccount_2">[id number]</td><td ID="MedicationNpid_2">[id number]</td><td ID="MedicationAuthorFirstName_2">Soniya</td><td ID="MedicationAuthorLastName_2">MacQueen</td><td ID="MedicationTaxonomyCode_2">[id number]</td><td ID="MedicationTaxonomyDesc_2"> Psychiatric/Mental Health</td><td ID="MedicationPhoneNumber_2">[phone]</td> [facility] ([facility]) 24 HR quetiapine 150 MG Extended Release Oral Tablet [Seroqu el] Seroquel XR 10/16/2020 12:00:00 AM EDT 150 mg by mouth completed <td ID="MedicationRxNorm_3">485629</td><td ID="MedicationMedication_3">Seroquel XR</td><td ID="MedicationRoute_3">by mouth</td><td ID="MedicationRouteConcept_3">C26854</td><td ID="MedicationStartDate_3">10/16/2020</td><td ID="MedicationStopDate_3">01/28/2021</td><td ID="MedicationDosageFrequency_3">every night</td><td ID="MedicationDuration_3">30</td><td ID="MedicationFormulaStrength_3">150 mg</td><td ID="MedicationDosageForm_3">tablet extended release 24 hr</td><td ID="MedicationDosageFormCode_3"></td><td ID="MedicationDosageDescription_3"></td><td ID="MedicationMedicationId_3">[id number]</td><td ID="MedicationAccount_3">[id number]</td><td ID="MedicationNpid_3">[id number]</td><td ID="MedicationAuthorFirstName_3">Soniya</td><td ID="MedicationAuthorLastName_3">MacQueen</td><td ID="MedicationTaxonomyCode_3">[id number]</td><td ID="MedicationTaxonomyDesc_3"> Psychiatric/Mental Health</td><td ID="MedicationPhoneNumber_3">[phone]</td> [facility] ([facility]) 24 HR quetiapine 150 MG Extended Release Oral Tablet [Seroqu el] Seroquel XR 10/16/2020 12:00:00 AM EDT 150 mg by mouth completed <td ID="MedicationRxNorm_4">735152</td><td ID="MedicationMedication_4">Seroquel XR</td><td ID="MedicationRoute_4">by mouth</td><td ID="MedicationRouteConcept_4">M39756</td><td ID="MedicationStartDate_4">10/16/2020</td><td ID="MedicationStopDate_4">12/15/2020</td><td ID="MedicationDosageFrequency_4">every night</td><td ID="MedicationDuration_4">30</td><td ID="MedicationFormulaStrength_4">150 mg</td><td ID="MedicationDosageForm_4">tablet extended release 24 hr</td><td ID="MedicationDosageFormCode_4"></td><td ID="MedicationDosageDescription_4"></td><td ID="MedicationMedicationId_4">[id number]</td><td ID="MedicationAccount_4">[id number]</td><td ID="MedicationNpid_4">[id number]</td><td ID="MedicationAuthorFirstName_4">Soniya</td><td ID="MedicationAuthorLastName_4">MacQueen</td><td ID="MedicationTaxonomyCode_4">[id number]</td><td ID="MedicationTaxonomyDesc_4"> Psychiatric/Mental Health</td><td ID="MedicationPhoneNumber_4">[phone]</td> [facility] ([facility]) Amoxicillin 875 MG / Clavulanate 125 MG Oral Tablet Am oxicillin/Clavulanate Potassium 08/10/2020 12:00:00 AM EDT active [facility] ([facility]) 24 HR Nicotine 0.583 MG/HR Transdermal Patch nicotine 2020 12:00:00 AM EDT 14 mg/24 completed <td I D="MedicationRxNorm_2">753936</td><td ID="MedicationMedication_2">nicotine</td><td ID="MedicationRoute_2">to skin</td><td ID="MedicationRouteConcept_2"></td><td ID="MedicationStartDate_2">2020</td><td ID="MedicationStopDate_2">12/10/2020</td><td ID="MedicationDosageFrequency_2">once a day</td><td ID="MedicationDuration_2">30</td><td ID="MedicationFormulaStrength_2">14 mg/24 hr</td><td ID="MedicationDosageForm_2">patch 24 hour</td><td ID="MedicationDosageFormCode_2"></td><td ID="MedicationDosageDescription_2"> </td><td ID="MedicationMedicationId_2">[id number]</td><td ID="MedicationAccount_2">[id number]</td><td ID="MedicationNpid_2">[id number]</td><td ID="MedicationAuthorFirstName_2">Soniya</td><td ID="MedicationAuthorLastName_2">MacQueen</td><td ID="MedicationTaxonomyCode_2">[id number]</td><td ID="MedicationTaxonomyDesc_2">Psychiatric/Mental Health</td><td ID="MedicationPhoneNumber_2">[phone]</td> [facility] ([facility]) 24 HR Nicotine 0.583 MG/HR Transdermal Patch nicotine 2020 12:00:00 AM EDT 14 mg/24 completed <td I D="MedicationRxNorm_1">098573</td><td ID="MedicationMedication_1">nicotine</td><td ID="MedicationRoute_1">to skin</td><td ID="MedicationRouteConcept_1"></td><td ID="MedicationStartDate_1">2020</td><td ID="MedicationStopDate_1">12/10/2020</td><td ID="MedicationDosageFrequency_1">once a day</td><td ID="MedicationDuration_1">30</td><td ID="MedicationFormulaStrength_1">14 mg/24 hr</td><td ID="MedicationDosageForm_1">patch 24 hour</td><td ID="MedicationDosageFormCode_1"></td><td ID="MedicationDosageDescription_1"> </td><td ID="MedicationMedicationId_1">[id number]</td><td ID="MedicationAccount_1">[id number]</td><td ID="MedicationNpid_1">[id number]</td><td ID="MedicationAuthorFirstName_1">Soniya</td><td ID="MedicationAuthorLastName_1">MacQueen</td><td ID="MedicationTaxonomyCode_1">[id number]</td><td ID="MedicationTaxonomyDesc_1">Psychiatric/Mental Health</td><td ID="MedicationPhoneNumber_1">[phone]</td> [facility] ([facility]) 24 HR Nicotine 0.583 MG/HR Transdermal Patch nicotine 2020 12:00:00 AM EDT 14 mg/24 completed <td I D="MedicationRxNorm_3">361376</td><td ID="MedicationMedication_3">nicotine</td><td ID="MedicationRoute_3">to skin</td><td ID="MedicationRouteConcept_3"></td><td ID="MedicationStartDate_3">2020</td><td ID="MedicationStopDate_3">12/10/2020</td><td ID="MedicationDosageFrequency_3">once a day</td><td ID="MedicationDuration_3">30</td><td ID="MedicationFormulaStrength_3">14 mg/24 hr</td><td ID="MedicationDosageForm_3">patch 24 hour</td><td ID="MedicationDosageFormCode_3"></td><td ID="MedicationDosageDescription_3"> </td><td ID="MedicationMedicationId_3">[id number]</td><td ID="MedicationAccount_3">[id number]</td><td ID="MedicationNpid_3">[id number]</td><td ID="MedicationAuthorFirstName_3">Soniya</td><td ID="MedicationAuthorLastName_3">MacQueen</td><td ID="MedicationTaxonomyCode_3">[id number]</td><td ID="MedicationTaxonomyDesc_3">Psychiatric/Mental Health</td><td ID="MedicationPhoneNumber_3">[phone]</td> [facility] ([facility]) gabapentin 600 MG Oral Tablet Gabapentin 08/07/2020 12:00:00 AM EDT active [facility] ([facility]) gabapentin 300 MG Oral Capsule Gabapentin 06/17/2020 12:00:00 AM EST ORAL completed [facility] ([facility]) meloxicam 15 MG Oral Tablet Meloxicam 06/17/2020 12:00:00 AM EST ORAL completed [facility] ([facility]) gabapentin 100 MG Oral Capsule Gabapentin 06/06/2020 12:00:00 AM EST ORAL completed [facility] ([facility]) Propranolol Hydrochloride 10 MG Oral Tablet propranolol 04/16/2020 12:00:00 AM EST 10 mg by mouth completed <td ID="MedicationRxNorm_2">919226</td><td ID="MedicationMedication_2">propranolol</td><td ID="MedicationRoute_2">by mouth</td><td ID="MedicationRouteConcept_2">O40344</td><td ID="MedicationStartDate_2">04/16/2020</td><td ID="MedicationStopDate_2">08/28/2020</td><td ID="MedicationDosageFrequency_2">twice a day</td><td ID="MedicationDuration_2">30</td><td ID="MedicationFormulaStrength_2">10 mg</td><td ID="MedicationDosageForm_2">tablet</td><td ID="MedicationDosageFormCode_2"></td><td ID="MedicationDosageDescription_2">as needed</td><td ID="MedicationMedicationId_2">[id number]</td><td ID="MedicationAccount_2">[id number]</td><td ID="MedicationNpid_2">[id number]</td><td ID="MedicationAuthorFirstName_2">Soniya</td><td ID="MedicationAuthorLastName_2">MacQueen</td><td ID="MedicationTaxonomyCode_2">[id number]</td><td ID="MedicationTaxonomyDesc_2">Psychiatric/Mental Health</td><td ID="MedicationPhoneNumber_2">[phone]</td> [facility] ([facility]) Propranolol Hydrochloride 10 MG Oral Tab let propranolol 10 mg tablet TK 1 T PO BID PRN propranolol 10 mg tablet TK 1 T PO BID PRN 03/13/2020 12:00:00 A M EST completed propranolol hydrochlor chris 10 MG Oral Tablet [facility] ([facility]) Propranolol Hydrochloride 10 MG Oral Tab let propranolol 10 mg tablet TK 1 T PO BID PRN propranolol 10 mg tablet TK 1 T PO BID PRN 03/13/2020 12:00:00 A M EST completed propranolol hydrochlor chris 10 MG Oral Tablet [facility] ([facility]) 24 HR quetiapine 400 MG Extended Release Oral Tablet quetiap ine 03/12/2020 12:00:00 AM EST 400 mg by mouth completed <td ID="MedicationRxNorm_1">470024</td><td ID="MedicationMedication_1">quetiapine</td><td ID="MedicationRoute_1">by mouth</td><td ID="MedicationRouteConcept_1">I52330</td><td ID="MedicationStartDate_1">03/12/2020</td><td ID="MedicationStopDate_1">05/14/2021</td><td ID="MedicationDosageFrequency_1">at bedtime</td><td ID="MedicationDuration_1">30</td><td ID="MedicationFormulaStrength_1">400 mg</td><td ID="MedicationDosageForm_1">tablet extended release 24 hr</td><td ID="MedicationDosageFormCode_1"></td><td ID="MedicationDosageDescription_1">as directed</td><td ID="MedicationMedicationId_1">[id number]</td><td ID="MedicationAccount_1">[id number]</td><td ID="MedicationNpid_1">[id number]</td><td ID="MedicationAuthorFirstName_1">Soniya</td><td ID="MedicationAuthorLastName_1">MacQueen</td><td ID="MedicationTaxonomyCode_1">[id number]</td><td ID="MedicationTaxonomyDesc_1"> Psychiatric/Mental Health</td><td ID="MedicationPhoneNumber_1">[phone]</td> [facility] ([facility]) 24 HR quetiapine 400 MG Extended Release Oral Tablet quetiap ine 03/12/2020 12:00:00 AM EST 400 mg by mouth completed <td ID="MedicationRxNorm_2">201020</td><td ID="MedicationMedication_2">quetiapine</td><td ID="MedicationRoute_2">by mouth</td><td ID="MedicationRouteConcept_2">X22618</td><td ID="MedicationStartDate_2">03/12/2020</td><td ID="MedicationStopDate_2">03/12/2021</td><td ID="MedicationDosageFrequency_2">at bedtime</td><td ID="MedicationDuration_2">30</td><td ID="MedicationFormulaStrength_2">400 mg</td><td ID="MedicationDosageForm_2">tablet extended release 24 hr</td><td ID="MedicationDosageFormCode_2"></td><td ID="MedicationDosageDescription_2">as directed</td><td ID="MedicationMedicationId_2">[id number]</td><td ID="MedicationAccount_2">[id number]</td><td ID="MedicationNpid_2">[id number]</td><td ID="MedicationAuthorFirstName_2">Soniya</td><td ID="MedicationAuthorLastName_2">MacQueen</td><td ID="MedicationTaxonomyCode_2">[id number]</td><td ID="MedicationTaxonomyDesc_2"> Psychiatric/Mental Health</td><td ID="MedicationPhoneNumber_2">[phone]</td> [facility] ([facility]) 24 HR quetiapine 300 MG Extended Release Oral Tablet quetiap ine 02/13/2020 12:00:00 AM EDT 300 mg by mouth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 Problem 0 06/20/2015 12:00:00 AM EST - 05/20/2020 12:00:00 AM EST NERY ([facility]) [id number] Influenza vaccine needed Influenza Vaccine Needed Pro blem 06/20/2015 12:00:00 AM EST - 05/20/2020 12:00:00 AM EST NERY ([facility]) 74593564 Abdominal pain Abdominal Pain Problem 06/20/2015 12:00:00 AM EST - 05/20/2020 12:00:00 AM CASSI GABRIEL ([facility]) 95905948 Acute otitis externa Acute Otitis Externa Problem 06/20/2015 12:00:00 AM EST - 05/20/2020 12:00:00 AM CASSI GABRIEL ([facility]) 188260703 SNOMED CT Concept SNOMED CT Concept Problem 06/20 12:00:00 AM EST - 05/20/2020 12:00:00 AM CASSI GABRIEL ([facility]) [id number] Impacted cerumen in right ear Impacted Cerumen in Right Ear Problem 06/20/2015 12:00:00 AM EST - 05/20/2020 12:00:00 AM SAUL GABRIEL ([facility]) [id number] Procedure by method Procedure by Method Problem 0 06/20/2015 12:00:00 AM EST - 05/20/2020 12:00:00 AM CASSI NERY ([facility]) [id number] Influenza vaccine needed Influenza Vaccine Needed Pro blem 06/20/2015 12:00:00 AM EST - 05/20/2020 12:00:00 AM CASSI GABRIEL ([facility]) 62077393 Abdominal pain Abdominal Pain Problem 06/20/2015 12:00:00 AM EST - 05/20/2020 12:00:00 AM CASSI GABRIEL ([facility]) [id number] Acute otitis externa Acute Otitis Externa Problem 06/20/2015 12:00:00 AM EST - 05/20/2020 12:00:00 AM CASSI NERY ([facility]) Surgeries/Procedures Procedure Description Date Indications Data Source(s) [facility] E/M Lvl 3--Est pt 02/13/2021 12:00:00 AM EDT - 02/13/2021 12:00:00 AM EDT [facility] ([facility]) Telemed A/O 30" 02/13/2021 12:00:00 AM EDT [facility] ([facility]) MHC Telemed E/M Lvl 3--Est pt 02/13/2021 12:00:00 AM E DT [facility] ([facility]) OFFICE OUTPATIENT VISIT 15 MINUTES 01/08/2021 12:00:00 AM EDT MED[facility] ([facility] ) OFFICE OUTPATIENT VISIT 25 MINUTES 11/27/2020 12:00:00 AM EDT MED[facility] ([facility] ) Psychiatric Diagnostic Evaluation (Non-Medical) 11/21/2020 12:00:00 AM EDT - 11/21/2020 12:00:00 AM EDT [facility] ([facility]) Psychiatric Diagnostic Evaluation (Non-Medical) 2020 12:00:00 AM EDT [facility] ([facility]) MHC Telemed E/M Lvl 3--Est pt 10/30/2020 12:00:00 AM EDT - 10/30/2020 12:00:00 AM EDT [facility] ([facility]) MHC Telemed E/M Lvl 3--Est pt 10/30/2020 12:00:00 AM E DT [facility] ([facility]) MHC Telemed E/M Lvl 3--Est pt 10/16/2020 12:00:00 AM EDT - 10/16/2020 12:00:00 AM EDT [facility] ([facility]) MHC Telemed E/M Lvl 3--Est pt 10/16/2020 12:00:00 AM E DT [facility] ([facility]) OFFICE OUTPATIENT VISIT 15 MINUTES 10/03/2020 12:00:00 AM EDT MEDENT ([facility] ) Echography Transvaginal 08/23/2020 12:00:00 AM EDT MED[facility] ([facility] ) Echography Pelvic Complete 08/23/2020 12:00:00 AM EDT MEDENT ([facility] ) Duplex Scan Arterial Inflow/Venous Outflow Abd/Pelv/Retroper LTD 08/23/2020 12:00:00 AM EDT MED[facility] ([facility] ) THERAPEUTIC PROPHYLACTIC/DX INJECTION SUBQ/IM 08/11/19 12:00:00 AM EDT MEDENT ([facility] ) EMERGENCY DEPARTMENT VISIT MODERATE SEVERITY 12:00:00 AM EDT MED[facility] ([facility]) MHC Telemed E/M Lvl 3--Est pt 2020 12:00:00 AM EDT - 2020 12:00:00 AM EDT [facility] ([facility]) MHC Telemed E/M Lvl 3--Est pt 2020 12:00:00 AM E DT [facility] ([facility]) OFFICE OUTPATIENT VISIT 25 MINUTES 08/07/2020 12:00:00 AM EDT MEDENT ([facility]) APPLICATION MODALITY 1/> AREAS HOT/COLD PACKS 07/02/19 21 12:00:00 AM EST MED[facility] ([facility]) THERAPEUTIC PX 1/> AREAS EACH 15 MIN EXERCISES 021 12:00:00 AM EST MEDENT ([facility] ) APPLICATION MODALITY 1/> AREAS HOT/COLD PACKS 06/17/19 21 12:00:00 AM EST MEDENT ([facility] ) THERAPEUTIC PX 1/> AREAS EACH 15 MIN EXERCISES 021 12:00:00 AM EST MEDENT ([facility] ) Physical Therapy Eval - Low Complexity 06/17/2020 12:0 0:00 AM EST MEDENT ([facility] ) OFFICE OUTPATIENT VISIT 25 MINUTES 06/17/2020 12:00:00 AM EST MEDENT ([facility]) X-Ray Spine Lumbosacral Complete Inc Bending Views Min Of 6 06/06/2020 12:00:00 AM EST MEDENT ([facility]) OFFICE OUTPATIENT VISIT 25 MINUTES 06/06/2020 12:00:00 AM EST MEDENT ([facility]) MHC Telemed E/M Lvl 3--Est pt 05/30/2020 12:00:00 AM EST - 05/30/2020 12:00:00 AM EST [facility] ([facility]) MHC Telemed E/M Lvl 3--Est pt 05/30/2020 12:00:[address] [facility] ([facility]) OFFICE OUTPATIENT VISIT 15 MINUTES 04/16 12:00:00 AM EST - 04/16/2020 12:00:00 AM EST [facility] ([facility]) OFFICE OUTPATIENT VISIT 15 MINUTES 04/16/2020 12:00:00 AM EST [facility] ([facility]) OFFICE OUTPATIENT VISIT 15 MINUTES 03/12 12:00:00 AM EST - 03/12/2020 12:00:00 AM EST [facility] ([facility]) OFFICE OUTPATIENT VISIT 15 MINUTES 03/12/2020 12:00:00 AM EST [facility] ([facility]) OFFICE OUTPATIENT VISIT 15 MINUTES 02/12 12:00:00 AM EDT - 02/13/2020 12:00:00 AM EDT [facility] ([facility]) OFFICE OUTPATIENT VISIT 15 MINUTES 02/13/2020 12:00:00 AM EDT [facility] ([facility]) Results ID Date Data Source [id number] 11/07/2020 03:41:00 PM EDT MEDENT ([facility]) Name Value Range Interpretation Code Description Data Renetta rce(s) Supporting Document(s) Urine Appearance Laboratory test result MEDENT ([facility]) Urine Color Laboratory test result MEDEN T ([facility]) pH of Urine 6.0 5.0-9.0 MEDENT ([facility]) Urine Specific [place] 1.017 1.002-1.035 M EDENT ([facility]) Urine Protein Laboratory test result MEDENT ([facility]) Urine Glucose (Ua) Laboratory test result MEDENT ([facility]) Urine Ketones Laboratory test result MEDENT ([facility]) Urine Urobilinogen 0.2 0.0-2.0 MEDENT ([facility] ) Urine Bilirubin Laboratory test result MEDENT ([facility]) Urine Nitrite Laboratory test result MEDENT ([facility]) Urine Leukocyte Esterase Laboratory test result MEDENT ([facility]) Urine Blood Laboratory test result MEDEN T ([facility]) Urine WBC (Auto) 1 0-3 MEDENT ([facility]) Urine RBC (Auto) 1 0-3 MEDENT ([facility]) Urine Bacteria (Auto) Laboratory test result MEDENT ([facility]) Urine Squamous Epithelial Cells 9 0-6 MEDENT ([facility]) Urine Mucus (Auto) Laboratory test result MEDENT ([facility]) Urine Hyaline Casts (Auto) 0 0-1 MED ENT ([facility]) ID Date Data Source [id number] 09/21/2020 12:30:00 PM EDT [facility]) Name Value Range Interpretation Code Description Data Renetta rce(s) Supporting Document(s) total 25(oh) vitamin D 21.1 NG/mL 30.0-100.0 Below low normal T otal 25(Oh) Vitamin D [facility]) ID Date Data Source [id number] 09/21/2020 12:30:00 PM EDT [facility]) Name Value Range Interpretation Code Description Data Renetta rce(s) Supporting Document(s) thyroid stimulating hormone 1.560 uIU/mL 0.358-3.740 Thyroid Stimulating Hormone [facility]) ID Date Data Source [id number] 09/21/2020 12:30:00 PM EDT [facility]) Name Value Range Interpretation Code Description Data Renetta rce(s) Supporting Document(s) phosphorus level 3.3 mg/dL 2.5-4.9 Phosphorus Level AT [facility]) ID Date Data Source [id number] 09/21/2020 12:30:00 PM EDT [facility]) Name Value Range Interpretation Code Description Data Renetta rce(s) Supporting Document(s) bilirubin,direct 0.2 mg/dL 0.0-0.2 Bilirubin,direct AT [facility]) ID Date Data Source [id number] 09/21/2020 12:30:00 PM EDT [facility]) Name Value Range Interpretation Code Description Data Renetta rce(s) Supporting Document(s) triglycerides level 110 mg/dL <150 Triglycerides Le demetrius HULL ([facility]) cholesterol level 126 mg/dL <200 Cholesterol Level NERY ([facility]) Cholesterol in LDL [Mass/volume] in Serum or Plasma 56 mg/dL <1 00 LDL Cholesterol NERY ([facility]) non-HDL-C 78 mg/dL Non-hdl-c NERY ([facility]) cholesterol risk ratio <5 Cholesterol R isk Ratio NERY ([facility]) HDL cholesterol 48 mg/dL >40 HDL Cholesterol ATHE ([facility]) ID Date Data Source [id number] 09/21/2020 12:30:00 PM EDT NERY ([facility]) Name Value Range Interpretation Code Description Data Renetta rce(s) Supporting Document(s) glucose, fasting 102 mg/dL 70-100 Above high normal Glucose, Fas ting NERY ([facility]) blood urea nitrogen 13 mg/dL 7-18 Blood Urea Nitro gen NERY ([facility]) potassium serum 4.3 mEq/L 3.5-5.1 Potassium Serum ATHE NA ([facility]) sodium level 141 mEq/L 136-145 Sodium Level NERY ([facility]) glomerular filtration rate > 60.0 >60 Glomerula r Filtration Rate NERY ([facility]) creatinine for GFR 0.91 mg/dL 0.55-1.30 Creatinine for GF R NERY ([facility]) carbon dioxide level 24 mEq/L 21-32 Carbon Dioxide Level NERY ([facility]) anion gap 6 mEq/L 8-16 Below low normal Anion Gap NERY ( [facility]) chloride level 111 mEq/L 98-107 Above high normal Chloride Level NERY ([facility]) bilirubin,total 0.5 mg/dL 0.2-1.0 Bilirubin,total ATHE NA ([facility]) AST/SGOT 13 U/L 7-37 AST/SGOT NERY ([facility]) calcium level 9.0 mg/dL 8.5-10.1 Calcium Level NERY ( [facility]) ALT/SGPT 31 U/L 12-78 ALT/SGPT NERY ([facility]) alkaline phosphatase 90 U/L 45-117 Alkaline Phosph atase NERY ([facility]) albumin/globulin ratio 1.2-2.2 Albumin/globu lor Ratio NERY ([facility]) albumin 3.9 gm/dL 3.2-5.2 Albumin NERY ([facility]) total protein 7.1 gm/dL 6.4-8.2 Total Protein NERY ( [facility]) ID Date Data Source [id number] 09/21/2020 12:30:00 PM EDT NERY ([facility]) Name Value Range Interpretation Code Description Data Renetta rce(s) Supporting Document(s) estimated average glucose 114 mg/dL 60-110 Above high norm al Estimated Average Glucose NERY ([facility]) Hemoglobin A1c/Hemoglobin.total in Blood 5.6 % Hemoglobin a1C NERY ([facility]) ID Date Data Source [id number] 09/21/2020 12:30:00 PM EDT NERY ([facility]) Name Value Range Interpretation Code Description Data Renetta rce(s) Supporting Document(s) white blood count 10.2 10 4.0-10.0 Above high normal White Blood Count NERY ([facility]) red blood count 4.87 10 4.00-5.40 Red Blood Count ATHE NA ([facility]) mean corpuscular volume 84.2 fL 80.0-96.0 Mean Corpusc ular Volume NERY ([facility]) hematocrit 41.0 % 36.0-47.0 Hematocrit NERY ([facility]) hemoglobin 14.8 g/dL 12.0-15.5 Hemoglobin NERY ([facility]) red cell distribution width 12.7 % 11.5-14.5 Red Cell Distribution Width NERY ([facility]) platelet count, automated 268 10 150-450 Platelet C ount, Automated NERY ([facility]) mean corpuscular hemoglobin 30.4 pg 27.0-33.0 Mean Cor puscular Hemoglobin NERY ([facility]) mean corpuscular HGB conc 36.1 g/dL 32.0-36.5 Mean Corpu scular HGB Conc NERY ([facility]) nucleated red blood cell % 0.0 % 0-0 Nucleated Red Blood Cell % NREY ([facility]) ID Date Data Source [id number] 09/21/2020 12:30:00 PM EDT MEDENT ([facility]) Name Value Range Interpretation Code Description Data Renetta rce(s) Supporting Document(s) Anion gap 3 in Serum or Plasma 6 8-16 MED[facility] ([facility]) ID Date Data Source [id number] 09/21/2020 12:30:00 PM EDT MED[facility] ([facility]) Name Value Range Interpretation Code Description Data Renetta rce(s) Supporting Document(s) Carbon dioxide, total [Moles/volume] in Serum or Plasma 24 21 -32 MED[facility] ([facility]) ID Date Data Source [id number] 09/21/2020 12:30:00 PM EDT MED[facility] ([facility]) Name Value Range Interpretation Code Description Data Renetta rce(s) Supporting Document(s) Chloride [Moles/volume] in Serum or Plasma 111 98-107 MED[facility] ([facility]) ID Date Data Source [id number] 09/21/2020 12:30:00 PM EDT MEDENT ([facility]) Name Value Range Interpretation Code Description Data Renetta rce(s) Supporting Document(s) Potassium [Moles/volume] in Serum or Plasma 4.3 3.5-5.1 MED[facility] ([facility]) ID Date Data Source [id number] 09/21/2020 12:30:00 PM EDT MED[facility] ([facility]) Name Value Range Interpretation Code Description Data Renetta rce(s) Supporting Document(s) Sodium [Moles/volume] in Serum or Plasma 141 136-145 MED[facility] ([facility]) ID Date Data Source [id number] 09/21/2020 12:30:00 PM EDT MED[facility] ([facility]) Name Value Range Interpretation Code Description Data Renetta rce(s) Supporting Document(s) Glomerular filtration rate/1.73 sq M.pre dicted [Volume Rate/Area] in Serum or Plasma by Creatinine-based formula (MDRD) Laboratory test result MEDENT ([facility]) ID Date Data Source [id number] 09/21/2020 12:30:00 PM EDT MED[facility] ([facility]) Name Value Range Interpretation Code Description Data Renetta rce(s) Supporting Document(s) Creatinine [Mass/volume] in Serum or Plasma 0.91 0.55-1.30 [facility] ([facility]) ID Date Data Source [id number] 09/21/2020 12:30:00 PM EDT MED[facility] ([facility]) Name Value Range Interpretation Code Description Data Renetta rce(s) Supporting Document(s) Urea nitrogen [Mass/volume] in Serum or Plasma 13 7-18 [facility] ([facility]) ID Date Data Source [id number] 09/21/2020 12:30:00 PM EDT MED[facility] ([facility]) Name Value Range Interpretation Code Description Data Renetta rce(s) Supporting Document(s) Phosphate [Mass/volume] in Serum or Plasma 3.3 2.5-4.9 MED[facility] ([facility]) ID Date Data Source [id number] 09/21/2020 12:30:00 PM EDT MED[facility] ([facility]) Name Value Range Interpretation Code Description Data Renetta rce(s) Supporting Document(s) Nucleated erythrocytes/100 leukocytes [Ratio] in Blood by Au tomated count 0.0 0-0 [facility] ([facility]) ID Date Data Source [id number] 09/21/2020 12:30:00 PM EDT MED[facility] ([facility]) Name Value Range Interpretation Code Description Data Renetta rce(s) Supporting Document(s) Platelets [#/volume] in Blood by Automated count 268 150-450 [facility] ([facility]) ID Date Data Source [id number] 09/21/2020 12:30:00 PM EDT MED[facility] ([facility]) Name Value Range Interpretation Code Description Data Renetta rce(s) Supporting Document(s) Erythrocyte distribution width [Ratio] by Automated count 12.7 11.5-14.5 MED[facility] ([facility]) ID Date Data Source [id number] 09/21/2020 12:30:00 PM EDT MED[facility] ([facility]) Name Value Range Interpretation Code Description Data Renetta rce(s) Supporting Document(s) Erythrocyte mean corpuscular hemoglobin concentration [Mass/volume] by Automated count 36.1 32.0-36.5 [facility] ([facility]) ID Date Data Source [id number] 09/21/2020 12:30:00 PM EDT MED[facility] ([facility]) Name Value Range Interpretation Code Description Data Renetta rce(s) Supporting Document(s) Erythrocyte mean corpuscular hemoglobin [Entitic mass] by Au tomated count 30.4 27.0-33.0 [facility] ([facility]) ID Date Data Source [id number] 09/21/2020 12:30:00 PM EDT [facility] ([facility]) Name Value Range Interpretation Code Description Data Renetta rce(s) Supporting Document(s) Erythrocyte mean corpuscular volume [Entitic volume] by Auto mated count 84.2 80.0-96.0 [facility] ([facility]) ID Date Data Source [id number] 09/21/2020 12:30:00 PM EDT MED[facility] ([facility]) Name Value Range Interpretation Code Description Data Renetta rce(s) Supporting Document(s) Hematocrit [Volume Fraction] of Blood by Automated count 41.0 3 6.0-47.0 [facility] ([facility]) ID Date Data Source [id number] 09/21/2020 12:30:00 PM EDT [facility] ([facility]) Name Value Range Interpretation Code Description Data Renetta rce(s) Supporting Document(s) Hemoglobin [Mass/volume] in Blood 14.8 12.0-15.5 [facility] ([facility]) ID Date Data Source [id number] 09/21/2020 12:30:00 PM EDT MED[facility] ([facility]) Name Value Range Interpretation Code Description Data Renetta rce(s) Supporting Document(s) Leukocytes [#/volume] in Blood by Automated count 10.2 4.0-10.0 [facility] ([facility]) ID Date Data Source [id number] 09/21/2020 12:30:00 PM EDT [facility] ([facility]) Name Value Range Interpretation Code Description Data Renetta rce(s) Supporting Document(s) Glucose [Mass/volume] in Serum or Plasma 102 70-100 [facility] ([facility]) ID Date Data Source [id number] 09/21/2020 12:30:00 PM EDT [facility] ([facility]) Name Value Range Interpretation Code Description Data Renetta rce(s) Supporting Document(s) Deprecated Cobalamin [Mass/volume] in Serum 21.1 30.0-100.0 [facility] ([facility]) ID Date Data Source [id number] 09/21/2020 12:30:00 PM EDT [facility] ([facility]) Name Value Range Interpretation Code Description Data Renetta rce(s) Supporting Document(s) Thyrotropin [Units/volume] in Serum or Plasma by Detec tion limit <= 0.005 mIU/L 1.560 0.358-3.740 [facility] ([facility]) ID Date Data Source [id number] 09/21/2020 12:30:00 PM EDT [facility] ([facility]) Name Value Range Interpretation Code Description Data Renetta rce(s) Supporting Document(s) Glucose mean value [Mass/volume] in Blood Estimated fr om glycated hemoglobin 114 60-110 [facility] ([facility]) ID Date Data Source [id number] 09/21/2020 12:30:00 PM EDT [facility] ([facility]) Name Value Range Interpretation Code Description Data Renetta rce(s) Supporting Document(s) Hemoglobin A1c/Hemoglobin.total in Blood 5.6 [facility] ([facility]) ID Date Data Source [id number] 09/21/2020 12:30:00 PM EDT [facility] ([facility]) Name Value Range Interpretation Code Description Data Renetta rce(s) Supporting Document(s) Albumin/Globulin Ratio 1.2 1.2-2.2 [facility] ([facility]) ID Date Data Source [id number] 09/21/2020 12:30:00 PM EDT [facility] ([facility]) Name Value Range Interpretation Code Description Data Renetta rce(s) Supporting Document(s) Albumin [Mass/volume] in Serum or Plasma 3.9 3.2-5.2 [facility] ([facility]) ID Date Data Source [id number] 09/21/2020 12:30:00 PM EDT [facility] ([facility]) Name Value Range Interpretation Code Description Data Renetta rce(s) Supporting Document(s) Protein [Mass/volume] in Serum or Plasma 7.1 6.4-8.2 [facility] ([facility]) ID Date Data Source [id number] 09/21/2020 12:30:00 PM EDT [facility] ([facility]) Name Value Range Interpretation Code Description Data Renetta rce(s) Supporting Document(s) Cholesterol.total/Cholesterol in HDL [Mass Ratio] in Serum or Plasm a 2.625 [facility] ([facility]) ID Date Data Source [id number] 09/21/2020 12:30:00 PM EDT [facility] ([facility]) Name Value Range Interpretation Code Description Data Renetta rce(s) Supporting Document(s) Cholesterol non HDL [Mass/volume] in Serum or Plasma 78 [facility] ([facility]) ID Date Data Source [id number] 09/21/2020 12:30:00 PM EDT [facility] ([facility]) Name Value Range Interpretation Code Description Data Renetta rce(s) Supporting Document(s) Calcium [Moles/volume] in Serum or Plasma 9.0 8.5-10.1 [facility] ([facility]) ID Date Data Source [id number] 09/21/2020 12:30:00 PM EDT [facility] ([facility]) Name Value Range Interpretation Code Description Data Renetta rce(s) Supporting Document(s) Cholesterol in HDL [Mass/volume] in Serum or Plasma 48 [facility] ([facility]) ID Date Data Source [id number] 09/21/2020 12:30:00 PM EDT [facility] ([facility]) Name Value Range Interpretation Code Description Data Renetta rce(s) Supporting Document(s) Cholesterol [Mass/volume] in Serum or Plasma 126 [facility] ([facility]) ID Date Data Source [id number] 09/21/2020 12:30:00 PM EDT [facility] ([facility]) Name Value Range Interpretation Code Description Data Renetta rce(s) Supporting Document(s) Triglyceride [Mass/volume] in Serum or Plasma 110 [facility] ([facility]) ID Date Data Source [id number] 09/21/2020 12:30:00 PM EDT [facility] ([facility]) Name Value Range Interpretation Code Description Data Renetta rce(s) Supporting Document(s) Bilirubin.direct [Mass/volume] in Serum or Plasma 0.2 0.0-0.2 [facility] ([facility]) ID Date Data Source [id number] 09/21/2020 12:30:00 PM EDT [facility] ([facility]) Name Value Range Interpretation Code Description Data Renetta rce(s) Supporting Document(s) Bilirubin.total [Mass/volume] in Serum or Plasma 0.5 0.2-1.0 [facility] ([facility]) ID Date Data Source [id number] 09/21/2020 12:30:00 PM EDT [facility] ([facility]) Name Value Range Interpretation Code Description Data Renetta rce(s) Supporting Document(s) Alkaline phosphatase [Enzymatic activity/volume] in Serum or Layo sma 90 45-117 [facility] ([facility]) ID Date Data Source [id number] 09/21/2020 12:30:00 PM EDT [facility] ([facility]) Name Value Range Interpretation Code Description Data Renetta rce(s) Supporting Document(s) Alanine aminotransferase [Enzymatic activity/volume] in Seru m or Plasma 31 12-78 [facility] ([facility]) ID Date Data Source [id number] 09/21/2020 12:30:00 PM EDT [facility] ([facility]) Name Value Range Interpretation Code Description Data Renetta rce(s) Supporting Document(s) Aspartate aminotransferase [Enzymatic activity/volume] in Se rum or Plasma 13 7-37 [facility] ([facility]) ID Date Data Source [id number] 09/21/2020 12:30:00 PM EDT [facility] ([facility]) Name Value Range Interpretation Code Description Data Renetta rce(s) Supporting Document(s) Cholesterol in LDL [Mass/volume] in Serum or Plasma by calculation 56 [facility] ([facility]) ID Date Data Source [id number] 09/21/2020 12:30:00 PM EDT [facility] ([facility]) Name Value Range Interpretation Code Description Data Renetta rce(s) Supporting Document(s) total 25(oh) vitamin D 21.1 NG/mL 30.0-100.0 Below low normal T otal 25(Oh) Vitamin D [facility] ([facility]) ID Date Data Source [id number] 09/21/2020 12:30:00 PM EDT [facility] ([facility]) Name Value Range Interpretation Code Description Data Renetta rce(s) Supporting Document(s) thyroid stimulating hormone 1.560 uIU/mL 0.358-3.740 Thyroid Stimulating Hormone [facility] ([facility]) ID Date Data Source [id number] 09/21/2020 12:30:00 PM EDT [facility]) Name Value Range Interpretation Code Description Data Renetta rce(s) Supporting Document(s) phosphorus level 3.3 mg/dL 2.5-4.9 Phosphorus Level AT [facility]) ID Date Data Source [id number] 09/21/2020 12:30:00 PM EDT [facility] ([facility]) Name Value Range Interpretation Code Description Data Renetta rce(s) Supporting Document(s) bilirubin,direct 0.2 mg/dL 0.0-0.2 Bilirubin,direct AT [facility]) ID Date Data Source [id number] 09/21/2020 12:30:00 PM EDT [facility] ([facility]) Name Value Range Interpretation Code Description Data Renetta rce(s) Supporting Document(s) cholesterol level 126 mg/dL <200 Cholesterol Level [facility] ([facility]) triglycerides level 110 mg/dL <150 Triglycerides Le demetrius [facility] ([facility]) Cholesterol in LDL [Mass/volume] in Serum or Plasma 56 mg/dL <1 00 LDL Cholesterol [facility] ([facility]) HDL cholesterol 48 mg/dL >40 HDL Cholesterol ATHE NA ([facility]) cholesterol risk ratio <5 Cholesterol R isk Ratio [facility] ([facility]) non-HDL-C 78 mg/dL Non-hdl-c [facility] ([facility]) ID Date Data Source [id number] 09/21/2020 12:30:00 PM EDT [facility] ([facility]) Name Value Range Interpretation Code Description Data Renetta rce(s) Supporting Document(s) blood urea nitrogen 13 mg/dL 7-18 Blood Urea Nitro gen [facility] ([facility]) glucose, fasting 102 mg/dL 70-100 Above high normal Glucose, Fas ting [facility] ([facility]) glomerular filtration rate > 60.0 >60 Glomerula r Filtration Rate [facility] ([facility]) creatinine for GFR 0.91 mg/dL 0.55-1.30 Creatinine for GF R [facility] ([facility]) chloride level 111 mEq/L 98-107 Above high normal Chloride Level [facility] ([facility]) potassium serum 4.3 mEq/L 3.5-5.1 Potassium Serum ATHE NA ([facility]) sodium level 141 mEq/L 136-145 Sodium Level N[facility] ([facility]) anion gap 6 mEq/L 8-16 Below low normal Anion Gap NERY ( [facility]) calcium level 9.0 mg/dL 8.5-10.1 Calcium Level NERY ( [facility]) carbon dioxide level 24 mEq/L 21-32 Carbon Dioxide Level [facility] ([facility]) ALT/SGPT 31 U/L 12-78 ALT/SGPT N[facility] ([facility]) AST/SGOT 13 U/L 7-37 AST/SGOT N[facility] ([facility]) alkaline phosphatase 90 U/L 45-117 Alkaline Phosph atase N[facility] ([facility]) total protein 7.1 gm/dL 6.4-8.2 Total Protein N[facility] ( [facility]) bilirubin,total 0.5 mg/dL 0.2-1.0 Bilirubin,total ATHE ([facility]) albumin 3.9 gm/dL 3.2-5.2 Albumin N[facility] ([facility]) albumin/globulin ratio 1.2-2.2 Albumin/globu lor Ratio [facility] ([facility]) ID Date Data Source [id number] 09/21/2020 12:30:00 PM EDT [facility] ([facility]) Name Value Range Interpretation Code Description Data Renetta rce(s) Supporting Document(s) Hemoglobin A1c/Hemoglobin.total in Blood 5.6 % Hemoglobin a1C [facility] ([facility]) estimated average glucose 114 mg/dL 60-110 Above high norm al Estimated Average Glucose [facility] ([facility]) ID Date Data Source [id number] 09/21/2020 12:30:00 PM EDT [facility] ([facility]) Name Value Range Interpretation Code Description Data Renetta rce(s) Supporting Document(s) white blood count 10.2 10 4.0-10.0 Above high normal White Blood Count [facility] ([facility]) red blood count 4.87 10 4.00-5.40 Red Blood Count ATHE ([facility]) hemoglobin 14.8 g/dL 12.0-15.5 Hemoglobin N[facility] ([facility]) hematocrit 41.0 % 36.0-47.0 Hematocrit [facility] ([facility]) mean corpuscular HGB conc 36.1 g/dL 32.0-36.5 Mean Corpu scular HGB Conc [facility] ([facility]) mean corpuscular volume 84.2 fL 80.0-96.0 Mean Corpusc ular Volume [facility] ([facility]) mean corpuscular hemoglobin 30.4 pg 27.0-33.0 Mean Cor puscular Hemoglobin [facility] ([facility]) red cell distribution width 12.7 % 11.5-14.5 Red Cell Distribution Width [facility] ([facility]) platelet count, automated 268 10 150-450 Platelet C ount, Automated [facility] ([facility]) nucleated red blood cell % 0.0 % 0-0 Nucleated Red Blood Cell % [facility] ([facility]) ID Date Data Source [id number] 05/07/2020 12:16:00 PM EST [facility] ([facility]) Name Value Range Interpretation Code Description Data Renetta rce(s) Supporting Document(s) istat B-HCG < 5.0 Istat B-HCG [facility] ([facility]) ID Date Data Source [id number] 05/07/2020 12:16:00 PM EST [facility] ([facility]) Name Value Range Interpretation Code Description Data Renetta rce(s) Supporting Document(s) istat B-HCG < 5.0 Istat B-HCG [facility] ([facility]) ID Date Data Source [id number] 05/07/2020 12:16:00 PM EST [facility] ([facility]) Name Value Range Interpretation Code Description Data Renetta rce(s) Supporting Document(s) istat B-HCG < 5.0 Istat B-HCG [facility] ([facility]) ID Date Data Source [id number] 02/14/2020 09:18:05 AM EDT [facility] Measurements & CalculationsHeight: 62 inches (5 [...] during this visit, including review of any ehjl-zdx-hxsmrzf medications, herbal therapies, and/or supplements.Allergy ReviewAllergy List [...] (Critical)Orders:Adult - Ofc Vst, EST, Level III [CPT-98644] Name Value Range Interpretation Code Description Data Renetta rce(s) Supporting Document(s) ID Date Data Source [id number] 02/13/2020 02:28:36 PM EDT [facility] Current Problems: DENTAL CARIES EXTENDIN G INTO PULP (ICD-521.03) (ICD10- K02.63)Chronic low back pain (ICD-724.2) (BBG50-Y07.5)Other abnormal glucose (ZMS66-F65.09)Vaccination (ICD-V05.9) (FKJ40-B18)Screening for malignant neoplasms of the cervix (ICD-V76.2) (AKW56-L91.4)Lumbago with sciatica, unspecified side (ICD-724.2) (EOG59-F89.40)Galactorrhea (JKU23-W36.6)Pain in joints of unspecified hand (UUF44-F53.549)Infective otitis externa of left ear (OHS89-P82.392)Atypical chest pain (ICD-786.59) (EQP35-N49.89)Cough (ICD-786.2) (YCJ58-E47)Bipolar I disorder, most recent episode (or current) hypomanic, in full remission (ICD-296.46) (BVV39-G52.74)Pain in right foot (ICD10- M79.671)Hoarseness, chronic (ICD-784.42) (ERL81-U53.0)Gastritis (ICD-535.50) (RJB20-W56.70)Post traumatic stress disorder (ICD-309.81) (ICD10- F43.10)Procedure and treatment not carried out due to patient leaving prior to being seen by health care provider (ICD-V64.06) (AIN43-X21.21)Food allergy (ICD- V15.05) (WGX03-D56.018)Pruritic condition NEC (ICD-698.9) (ICD10- L29.8)Depression, major, moderate (ICD-296.22) (MKE36-N25.1)Otitis externa, acute, right (ICD-380.12) (TWT52-F65.501)Preventative health care (ICD-V70.0) (ZDK40-L68.00)ANXIETY DISORDER, GENERALIZED (ICD-300.02) (VTO99-U02.1)Impacted cerumen, right (ICD-380.4) (SHI28-U61.21)Abdominal pain, mild (ICD-789.00) (MFY13-V67.9)Need for prophylactic vaccination and inoculation against other combinations of diseases (ICD-V06.8) (UPE47-W21)Vaccine influenza (ICD-V04.8) (BKN79-M23)General Adult Medical Exam WITH Abnormal Findings (over 18) (ICD- V70.0) (FAN47-K09.01)HTN (ICD-401.9) (IWM70-I69)Depression, major (ICD-296.20) (PQX31-J82.9)Tobacco use (ICD-305.1) (YWM43-B74.0)Problem list reviewed during this update.Current Medications: CYCLOBENZAPRINE [...] pain when needed. Assisted By: AM NV: new p/eJennifer Pat DDS by giovanna (02/13/2020 3:09 PM): Tooth Notes and Watches: Assessment & Plan Problems:Added: DENTAL CARIES EXTENDING INTO PULP (ICD-521.03) (JNK10-G97.63)Medications:CYCLOBENZAPRINE HCL 10 MG ORAL TABLETVERRUCALEVOCETIRIZINE DIHYDROCHLORIDE 5 MG ORAL TABLETBENADRYL ALLERGY 25 MG ORAL CAPSULEAllergies:* GLUTEN (Critical)* LATEX (Critical)Orders:Oral Surgery Referral [CPT-91863] Name Value Range Interpretation Code Description Data Renetta rce(s) Supporting Document(s) ID Date Data Source [id number] 02/13/2020 10:53:00 AM EDT [facility] ([facility]) Name Value Range Interpretation Code Description Data Renetta rce(s) Supporting Document(s) cannabinoid screen, blood ++positive++ cutoff:5 Abnorm al (applies to non-numeric results) Cannabinoid Screen, Blood N[facility] ([facility]) amphetamines screen, blood negative cutoff:50 Amphetami beata Screen, Blood [facility] ([facility]) barbiturates screen, blood negative cutoff:0.1 Barbitura stephanie Screen, Blood [facility]) benzodiazepines screen, blood negative cutoff:20 Benzodiazepines Screen, Blood [facility]) opiates screen, blood negative cutoff:5 Opiates Screen , Blood [facility] ([facility]) cocaine + metab. screen, blood negative cutoff:25 Cocaine + Metab. Screen, Blood [facility]) oxycodone screen negative cutoff:5 Oxycodone Screen AT [facility] ([facility]) cannabinoid confirmation positive . Cannabinoid Confirmation [facility]) phencyclidine screen, blood negative cutoff:8 Phencycl idine Screen, Blood [facility]) carboxy-THC 172.4 NG/mL . Carboxy-thc [facility] ([facility]) tetrahydrocannabinol(THC) 12.6 NG/mL . tetrahydro cannabinol(THC) [facility]) cannabidiol negative . Cannabidiol [facility] ([facility]) cannabinol negative . Cannabinol [facility] ([facility]) hydroxy-THC 4.9 NG/mL . Hydroxy-thc [facility] ([facility]) ID Date Data Source [id number] 02/13/2020 10:53:00 AM EDT [facility] ([facility]) Name Value Range Interpretation Code Description Data Renetta rce(s) Supporting Document(s) amphetamines screen, blood negative cutoff:50 Amphetami beata Screen, Blood [facility]) barbiturates screen, blood negative cutoff:0.1 Barbitura stephanie Screen, Blood [facility]) cocaine + metab. screen, blood negative cutoff:25 Cocaine + Metab. Screen, Blood [facility]) benzodiazepines screen, blood negative cutoff:20 Benzodiazepines Screen, Blood [facility] ([facility]) cannabinoid screen, blood ++positive++ cutoff:5 Abnorm al (applies to non-numeric results) Cannabinoid Screen, Blood [facility] ([facility]) opiates screen, blood negative cutoff:5 Opiates Screen , Blood [facility] ([facility]) oxycodone screen negative cutoff:5 Oxycodone Screen AT [facility] ([facility]) cannabinoid confirmation positive . Cannabinoid Confirmation [facility] ([facility]) tetrahydrocannabinol(THC) 12.6 NG/mL . tetrahydro cannabinol(THC) [facility] ([facility]) phencyclidine screen, blood negative cutoff:8 Phencycl idine Screen, Blood [facility] ([facility]) carboxy-THC 172.4 NG/mL . Carboxy-thc [facility] ([facility]) hydroxy-THC 4.9 NG/mL . Hydroxy-thc [facility] ([facility]) cannabinol negative . Cannabinol [facility] ([facility]) cannabidiol negative . Cannabidiol [facility] ([facility]) ID Date Data Source [id number] 02/13/2020 10:53:00 AM EDT [facility]) Name Value Range Interpretation Code Description Data Renetta rce(s) Supporting Document(s) benzodiazepines screen, blood negative cutoff:20 Benzodiazepines Screen, Blood [facility]) barbiturates screen, blood negative cutoff:0.1 Barbitura stephanie Screen, Blood [facility] ([facility]) amphetamines screen, blood negative cutoff:50 Amphetami beata Screen, Blood [facility] ([facility]) cannabinoid screen, blood ++positive++ cutoff:5 Abnorm al (applies to non-numeric results) Cannabinoid Screen, Blood [facility] ([facility]) oxycodone screen negative cutoff:5 Oxycodone Screen AT [facility]) phencyclidine screen, blood negative cutoff:8 Phencycl idine Screen, Blood [facility]) cocaine + metab. screen, blood negative cutoff:25 Cocaine + Metab. Screen, Blood [facility]) cannabinoid confirmation positive . Cannabinoid Confirmation [facility]) opiates screen, blood negative cutoff:5 Opiates Screen , Blood [facility]) carboxy-THC 172.4 NG/mL . Carboxy-thc [facility] ([facility]) hydroxy-THC 4.9 NG/mL . Hydroxy-thc [facility] ([facility]) cannabinol negative . Cannabinol [facility] ([facility]) tetrahydrocannabinol(THC) 12.6 NG/mL . tetrahydro cannabinol(THC) [facility]) cannabidiol negative . Cannabidiol [facility] ([facility]) ID Date Data Source [id number] 02/13/2020 10:53:00 AM EDT [facility]) Name Value Range Interpretation Code Description Data Renetta rce(s) Supporting Document(s) amphetamines screen, blood negative cutoff:50 Amphetami beata Screen, Blood [facility] ([facility]) cocaine + metab. screen, blood negative cutoff:25 Cocaine + Metab. Screen, Blood [facility]) cannabinoid screen, blood ++positive++ cutoff:5 Abnorm al (applies to non-numeric results) Cannabinoid Screen, Blood [facility] ([facility]) barbiturates screen, blood negative cutoff:0.1 Barbitura stephanie Screen, Blood [facility]) benzodiazepines screen, blood negative cutoff:20 Benzodiazepines Screen, Blood [facility]) opiates screen, blood negative cutoff:5 Opiates Screen , Blood [facility] ([facility]) cannabinoid confirmation positive . Cannabinoid Confirmation [facility]) phencyclidine screen, blood negative cutoff:8 Phencycl idine Screen, Blood [facility]) oxycodone screen negative cutoff:5 Oxycodone Screen AT [facility] ([facility]) tetrahydrocannabinol(THC) 12.6 NG/mL . tetrahydro cannabinol(THC) [facility]) carboxy-THC 172.4 NG/mL . Carboxy-thc [facility] ([facility]) hydroxy-THC 4.9 NG/mL . Hydroxy-thc [facility]) cannabinol negative . Cannabinol [facility] ([facility]) cannabidiol negative . Cannabidiol [facility] ([facility]) ID Date Data Source [id number] 02/13/2020 10:53:00 AM EDT [facility]) Name Value Range Interpretation Code Description Data Renetta rce(s) Supporting Document(s) cannabinoid screen, blood ++positive++ cutoff:5 Abnorm al (applies to non-numeric results) Cannabinoid Screen, Blood [facility] ([facility]) amphetamines screen, blood negative cutoff:50 Amphetami beata Screen, Blood [facility] ([facility]) barbiturates screen, blood negative cutoff:0.1 Barbitura stephanie Screen, Blood [facility] ([facility]) benzodiazepines screen, blood negative cutoff:20 Benzodiazepines Screen, Blood [facility] ([facility]) cocaine + metab. screen, blood negative cutoff:25 Cocaine + Metab. Screen, Blood [facility] ([facility]) oxycodone screen negative cutoff:5 Oxycodone Screen AT [facility]) tetrahydrocannabinol(THC) 12.6 NG/mL . tetrahydro cannabinol(THC) [facility]) opiates screen, blood negative cutoff:5 Opiates Screen , Blood [facility] ([facility]) phencyclidine screen, blood negative cutoff:8 Phencycl idine Screen, Blood [facility] ([facility]) cannabinoid confirmation positive . Cannabinoid Confirmation [facility] ([facility]) cannabinol negative . Cannabinol [facility] ([facility]) hydroxy-THC 4.9 NG/mL . Hydroxy-thc [facility] ([facility]) cannabidiol negative . Cannabidiol [facility] ([facility]) carboxy-THC 172.4 NG/mL . Carboxy-thc [facility] ([facility]) ID Date Data Source [id number] 02/13/2020 10:52:00 AM EDT [facility]) Name Value Range Interpretation Code Description Data Renetta rce(s) Supporting Document(s) vitamin B1 level whole blood 86.1 nmol/L 66.5-200.0 Vitamin B1 Level Whole Blood [facility]) ID Date Data Source [id number] 02/13/2020 10:52:00 AM EDT [facility]) Name Value Range Interpretation Code Description Data Renetta rce(s) Supporting Document(s) specimen type . Specimen Type [facility] ([facility]) amphetamine blood screen negative . Amphetamine Blood Screen [facility] ([facility]) ID Date Data Source [id number] 02/13/2020 10:52:00 AM EDT [facility] ([facility]) Name Value Range Interpretation Code Description Data Renetta rce(s) Supporting Document(s) vitamin B1 level whole blood 86.1 nmol/L 66.5-200.0 Vitamin B1 Level Whole Blood NERY ([facility]) ID Date Data Source [id number] 02/13/2020 10:52:00 AM [facility] Name Value Range Interpretation Code Description Data Renetta rce(s) Supporting Document(s) specimen type . Specimen Type NERY ([facility]) amphetamine blood screen negative . Amphetamine Blood Screen NERY ([facility]) ID Date Data Source [id number] 02/13/2020 10:52:00 AM EDT [facility] Name Value Range Interpretation Code Description Data Renetta rce(s) Supporting Document(s) vitamin B1 level whole blood 86.1 nmol/L 66.5-200.0 Vitamin B1 Level Whole Blood NERY ([facility]) ID Date Data Source [id number] 02/13/2020 10:52:00 AM EDT NERY ([facility]) Name Value Range Interpretation Code Description Data Renetta rce(s) Supporting Document(s) amphetamine blood screen negative . Amphetamine Blood Screen NERY ([facility]) specimen type . Specimen Type NERY ([facility]) ID Date Data Source [id number] 02/13/2020 10:52:00 AM EDT [facility] Name Value Range Interpretation Code Description Data Renetta rce(s) Supporting Document(s) vitamin B1 level whole blood 86.1 nmol/L 66.5-200.0 Vitamin B1 Level Whole Blood NERY ([facility]) ID Date Data Source [id number] 02/13/2020 10:52:00 AM EDT HULL ([facility]) Name Value Range Interpretation Code Description Data Renetta rce(s) Supporting Document(s) specimen type . Specimen Type NERY ([facility]) amphetamine blood screen negative . Amphetamine Blood Screen HULL ([facility]) ID Date Data Source [id number] 02/13/2020 10:52:00 AM EDT HULL ([facility]) Name Value Range Interpretation Code Description Data Renetta rce(s) Supporting Document(s) vitamin B1 level whole blood 86.1 nmol/L 66.5-200.0 Vitamin B1 Level Whole Blood HULL ([facility]) ID Date Data Source [id number] 02/13/2020 10:52:00 AM EDT HULL ([facility]) Name Value Range Interpretation Code Description Data Renetta rce(s) Supporting Document(s) specimen type . Specimen Type NERY ([facility]) amphetamine blood screen negative . Amphetamine Blood Screen HULL ([facility]) ID Date Data Source [id number] 02/13/2020 10:52:00 AM EDT [facility] Name Value Range Interpretation Code Description Data Renetta rce(s) Supporting Document(s) HCT 41.3 % 36.0-47.0 N [facility] HGB 14.5 g/dL 12.0-15.5 N [facility] MCH 35.1 G/DL pg 32.0-36.5 N [facility] MCHC 29.4 PG % 27.0-33.0 N [facility] PLATELETS 249 10 10*3/mm3 150-450 N [facility] RBC 4.93 10 10*6/mm3 4.00-5.40 N [facility] RDW 13.0 % 11.5-14.5 N [facility] WBC TOTAL 9.0 4.0-10.0 N [facility] ID Date Data Source [id number] 02/13/2020 10:52:00 AM EDT [facility] Name Value Range Interpretation Code Description Data Renetta rce(s) Supporting Document(s) HGBA1C 5.6 % N [facility] ID Date Data Source [id number] 02/13/2020 10:52:00 AM EDT [facility] Name Value Range Interpretation Code Description Data Renetta rce(s) Supporting Document(s) VIT D25 TOT 22.5 ng/mL 30.0-100.0 L [facility] BG FASTING 96 mg/dL 70-100 N [facility] TSH 1.410 microintl units/mL 0.358-3.740 N [facility] Procedure Social History Code Duration Value Status Description Data Source(s ) Smoking 02/13/2021 12:00:00 AM EDT Unknown if ever smoked comp leted Unknown if ever smoked [facility] ([facility]) Smoking 11/21/2020 12:00:00 AM EDT Unknown if ever smoked comp leted Unknown if ever smoked [facility] ([facility]) Smoking 10/30/2020 12:00:00 AM EDT Unknown if ever smoked comp leted Unknown if ever smoked [facility] ([facility]) Smoking 10/16/2020 12:00:00 AM EDT Unknown if ever smoked comp leted Unknown if ever smoked [facility] ([facility]) Smoking 2020 12:00:00 AM EDT Unknown if ever smoked comp leted Unknown if ever smoked [facility] ([facility]) Smoking 05/30/2020 12:00:00 AM EST Unknown if ever smoked comp leted Unknown if ever smoked [facility] ([facility]) Smoking 04/16/2020 12:00:00 AM EST Unknown if ever smoked comp leted Unknown if ever smoked [facility] ([facility]) Smoking 03/12/2020 12:00:00 AM EST Unknown if ever smoked comp leted Unknown if ever smoked [facility] ([facility]) Smoking 02/13/2020 12:00:00 AM EDT Unknown if ever smoked comp leted Unknown if ever smoked [facility] ([facility]) Vital Signs ID Date Data Source [id number] Name Value Range Interpretation Code Description Data Source(s) Body weight Measured 295.00 lbs Normal (applies to n on-numeric results) 295.00 lbs [facility] ([facility]) Body height 62 [in_i] 62 [in_i] [facility]) Diastolic blood pressure 90 mm[Hg] 90 mm[Hg] NERY ([facility]) Body mass index (BMI) [Ratio] 54 kg/m2 54 kg/ m2 NERY ([facility]) Systolic blood pressure 129 mm[Hg] 129 mm[Hg] A [facility] ([facility]) Body weight 4724 [oz_av] 4724 [oz_av] NERY ([facility]) Diastolic blood pressure 88 mm[Hg] 88 mm[Hg] NERY ([facility]) Body height 62 [in_i] 62 [in_i] NERY ([facility]) Body mass index (BMI) [Ratio] 53.1 kg/m2 53.1 k g/m2 NERY ([facility]) Systolic blood pressure 134 mm[Hg] 134 mm[Hg] A [facility] ([facility]) Body weight 4642 [oz_av] 4642 [oz_av] NERY ([facility]) Diastolic blood pressure 88 mm[Hg] 88 mm[Hg] NERY ([facility]) Body height 62 [in_i] 62 [in_i] NERY ([facility]) Body mass index (BMI) [Ratio] 53.1 kg/m2 53.1 k g/m2 NERY ([facility]) Systolic blood pressure 134 mm[Hg] 134 mm[Hg] A THENA ([facility]) Body weight 4642 [oz_av] 4642 [oz_av] NERY ([facility]) Body height 0.00 in Normal (applies to non-numeric resu lts) 0.00 in [facility]) Body weight Measured 270.00 lbs Normal (applies to n on-numeric results) 270.00 lbs [facility] ([facility]) Body mass index (BMI) [Ratio] 0.00 kg/m2 No rmal (applies to non-numeric results) 0.00 kg/m2 [facility] ([facility]) Systolic blood pressure 0 mm[Hg] Normal (applies t o non-numeric results) 0 mm[Hg] [facility] ([facility]) Diastolic blood pressure 0 mm[Hg] Normal (applies to non-numeric results) 0 mm[Hg] [facility] ([facility]) Body mass index (BMI) [Ratio] 45.0 kg/m2 45.0 k g/m2 MED[facility] ([facility] ) Body temperature 97.1 [degF] 97.1 [degF] MEDENT ([facility] ) Body height 65.5 [in_i] 65.5 [in_i] MEDENT ([facility]) 5'5.50" Body weight 274.50 [lb_av] 274.50 [lb_av] MEDEN T ([facility] ) Body height 0.00 in Normal (applies to non-numeric resu lts) 0.00 in [facility] ([facility]) Body weight Measured 0.00 lbs Normal (applies to n on-numeric results) 0.00 lbs [facility] ([facility]) Body mass index (BMI) [Ratio] 0.00 kg/m2 No rmal (applies to non-numeric results) 0.00 kg/m2 [facility] ([facility]) Systolic blood pressure 0 mm[Hg] Normal (applies t o non-numeric results) 0 mm[Hg] [facility] ([facility]) Diastolic blood pressure 0 mm[Hg] Normal (applies to non-numeric results) 0 mm[Hg] [facility] ([facility]) Body height 62 [in_i] 62 [in_i] NERY ([facility]) Body height 62 [in_i] 62 [in_i] NERY ([facility]) Body height 62 [in_i] 62 [in_i] NERY ([facility]) Body height 0.00 in Normal (applies to non-numeric resu lts) 0.00 in [facility] ([facility]) Body weight Measured 0.00 lbs Normal (applies to n on-numeric results) 0.00 lbs [facility] ([facility]) Body mass index (BMI) [Ratio] 0.00 kg/m2 No rmal (applies to non-numeric results) 0.00 kg/m2 [facility] ([facility]) Systolic blood pressure 0 mm[Hg] Normal (applies t o non-numeric results) 0 mm[Hg] [facility] ([facility]) Diastolic blood pressure 0 mm[Hg] Normal (applies to non-numeric results) 0 mm[Hg] [facility] ([facility]) Diastolic blood pressure 88 mm[Hg] 88 mm[Hg] NERY ([facility]) Body height 62 [in_i] 62 [in_i] NERY ([facility]) Body mass index (BMI) [Ratio] 50.4 kg/m2 50.4 k g/m2 NERY ([facility]) Systolic blood pressure 130 mm[Hg] 130 mm[Hg] A THENA ([facility]) Body weight 4409.6 [oz_av] 4409.6 [oz_av] ATHEN A ([facility]) Diastolic blood pressure 88 mm[Hg] 88 mm[Hg] NERY ([facility]) Body height 62 [in_i] 62 [in_i] NERY ([facility]) Body mass index (BMI) [Ratio] 50.4 kg/m2 50.4 k g/m2 NERY ([facility]) Systolic blood pressure 130 mm[Hg] 130 mm[Hg] A [facility] ([facility]) Body weight 4409.6 [oz_av] 4409.6 [oz_av] ATHEN A ([facility]) Diastolic blood pressure 88 mm[Hg] 88 mm[Hg] NERY ([facility]) Body height 62 [in_i] 62 [in_i] NERY ([facility]) Body mass index (BMI) [Ratio] 50.4 kg/m2 50.4 k g/m2 NERY ([facility]) Systolic blood pressure 130 mm[Hg] 130 mm[Hg] A [facility] ([facility]) Body weight 4409.6 [oz_av] 4409.6 [oz_av] ATHEN A ([facility]) Diastolic blood pressure 88 mm[Hg] 88 mm[Hg] NERY ([facility]) Body height 62 [in_i] 62 [in_i] NERY ([facility]) Body mass index (BMI) [Ratio] 50.4 kg/m2 50.4 k g/m2 NERY ([facility]) Systolic blood pressure 130 mm[Hg] 130 mm[Hg] A [facility] ([facility]) Body weight 4409.6 [oz_av] 4409.6 [oz_av] ATHEN A ([facility]) Diastolic blood pressure 99 mm[Hg] 99 mm[Hg] NERY ([facility]) Body height 62 [in_i] 62 [in_i] NERY ([facility]) Systolic blood pressure 135 mm[Hg] 135 mm[Hg] A [facility] ([facility]) Diastolic blood pressure 99 mm[Hg] 99 mm[Hg] NERY ([facility]) Body height 62 [in_i] 62 [in_i] NERY ([facility]) Systolic blood pressure 135 mm[Hg] 135 mm[Hg] A [facility] ([facility]) Diastolic blood pressure 99 mm[Hg] 99 mm[Hg] NERY ([facility]) Body height 62 [in_i] 62 [in_i] NERY ([facility]) Systolic blood pressure 135 mm[Hg] 135 mm[Hg] A [facility] ([facility]) Diastolic blood pressure 99 mm[Hg] 99 mm[Hg] NERY ([facility]) Body height 62 [in_i] 62 [in_i] NERY ([facility]) Systolic blood pressure 135 mm[Hg] 135 mm[Hg] A [facility] ([facility]) Diastolic blood pressure 99 mm[Hg] 99 mm[Hg] NERY ([facility]) Body height 62 [in_i] 62 [in_i] NERY ([facility]) Systolic blood pressure 135 mm[Hg] 135 mm[Hg] A [facility] ([facility]) Body weight Measured 0.00 lbs Normal (applies to n on-numeric results) 0.00 lbs [facility] ([facility]) Body height 0.00 in Normal (applies to non-numeric resu lts) 0.00 in [facility] ([facility]) Body mass index (BMI) [Ratio] 0.00 kg/m2 No rmal (applies to non-numeric results) 0.00 kg/m2 [facility] ([facility]) Systolic blood pressure 0 mm[Hg] Normal (applies t o non-numeric results) 0 mm[Hg] [facility] ([facility]) Diastolic blood pressure 0 mm[Hg] Normal (applies to non-numeric results) 0 mm[Hg] [facility] ([facility]) Diastolic blood pressure 99 mm[Hg] 99 mm[Hg] NERY ([facility]) Body height 62 [in_i] 62 [in_i] NERY ([facility]) Body mass index (BMI) [Ratio] 49.75 kg/m2 49.75 kg/m2 NERY ([facility]) Systolic blood pressure 139 mm[Hg] 139 mm[Hg] A [facility] ([facility]) Body weight 4336 [oz_av] 4336 [oz_av] NERY ([facility]) Diastolic blood pressure 99 mm[Hg] 99 mm[Hg] NERY ([facility]) Body height 62 [in_i] 62 [in_i] NERY ([facility]) Body mass index (BMI) [Ratio] 49.75 kg/m2 49.75 kg/m2 NERY ([facility]) Systolic blood pressure 139 mm[Hg] 139 mm[Hg] A THENA ([facility]) Body weight 4336 [oz_av] 4336 [oz_av] NERY ([facility]) Body height 0.00 in Normal (applies to non-numeric resu lts) 0.00 in [facility] ([facility]) Body weight Measured 0.00 lbs Normal (applies to n on-numeric results) 0.00 lbs [facility] ([facility]) Body mass index (BMI) [Ratio] 0.00 kg/m2 No rmal (applies to non-numeric results) 0.00 kg/m2 [facility] ([facility]) Systolic blood pressure 0 mm[Hg] Normal (applies t o non-numeric results) 0 mm[Hg] [facility] ([facility]) Diastolic blood pressure 0 mm[Hg] Normal (applies to non-numeric results) 0 mm[Hg] [facility] ([facility]) Patient Treatment Plan of Care Planned Activity Planned Date Details Description Data Source (s) Propranolol Hydrochloride 10 MG Oral Tablet 03/13/2020 12:00:00 AM EST HULL ([facility]) Propranolol Hydrochloride 10 MG Oral Tablet 03/13/2020 12:00:00 AM [facility] ramelteon 8 MG Oral Tablet A THENA ([facility]) 24 HR quetiapine 300 MG Extended Release Oral Tablet NERY ([facility]) 24 HR quetiapine 150 MG Extended Release Oral Tablet NERY ([facility]) quetiapine 100 MG Oral Tablet NERY ([facility]) Propranolol Hydrochloride 10 MG Oral Tablet NERY ([facility]) Prednisone 20 MG Oral Tablet NERY ([facility]) 24 HR Nicotine 0.583 MG/HR Transdermal Patch NERY ([facility]) Metronidazole 500 MG Oral Tablet NERY ([facility]) Metronidazole 0.0075 MG/MG Vaginal Gel NERY ([facility]) methylprednisolone 4 mg tablets in a dose pack TAKE DIRECTED NERY ([facility]) Methocarbamol 750 MG Oral Tablet NERY ([facility]) meloxicam 15 MG Oral Tablet NERY ([facility]) [place] Carbonate 300 MG Oral Capsule NERY ([facility]) 1.5 ML paliperidone palmitate 156 MG/ML Prefilled Syringe [Invega] NERY ([facility]) 1 ML paliperidone palmitate 156 MG/ML Prefilled Syringe [Invega] NERY ([facility]) gabapentin 300 MG Oral Capsule NERY ([facility]) gabapentin 100 MG Oral Capsule NERY ([facility]) Cyclobenzaprine hydrochloride 10 MG Oral Tablet NERY ([facility]) Clonidine Hydrochloride 0.1 MG Oral Tablet NERY ([facility]) buspirone hydrochloride 10 MG Oral Tablet NERY ([facility]) Amoxicillin 875 MG / Clavulanate 125 MG Oral Tablet NERY ([facility]) ramelteon 8 MG Oral Tablet A THENA ([facility]) 24 HR quetiapine 300 MG Extended Release Oral Tablet NERY ([facility]) quetiapine 100 MG Oral Tablet NERY ([facility]) Propranolol Hydrochloride 10 MG Oral Tablet NERY ([facility]) Prednisone 20 MG Oral Tablet NERY ([facility]) 24 HR Nicotine 0.583 MG/HR Transdermal Patch NERY ([facility]) Metronidazole 500 MG Oral Tablet NERY ([facility]) Metronidazole 0.0075 MG/MG Vaginal Gel NERY ([facility]) Methocarbamol 750 MG Oral Tablet NERY ([facility]) meloxicam 15 MG Oral Tablet NERY ([facility]) [place] Carbonate 300 MG Oral Capsule NERY ([facility]) 1.5 ML paliperidone palmitate 156 MG/ML Prefilled Syringe [Invega] NERY ([facility]) 1 ML paliperidone palmitate 156 MG/ML Prefilled Syringe [Invega] NERY ([facility]) gabapentin 300 MG Oral Capsule NERY ([facility]) gabapentin 100 MG Oral Capsule NERY ([facility]) Cyclobenzaprine hydrochloride 10 MG Oral Tablet NERY ([facility]) Clonidine Hydrochloride 0.1 MG Oral Tablet NERY ([facility]) buspirone hydrochloride 10 MG Oral Tablet NERY ([facility]) Amoxicillin 875 MG / Clavulanate 125 MG Oral Tablet NERY ([facility]) ramelteon 8 MG Oral Tablet A THENA ([facility]) 24 HR quetiapine 300 MG Extended Release Oral Tablet NERY ([facility]) 24 HR quetiapine 150 MG Extended Release Oral Tablet NERY ([facility]) quetiapine 100 MG Oral Tablet NERY ([facility]) [place] Carbonate 300 MG Oral Capsule NERY ([facility]) 1.5 ML paliperidone palmitate 156 MG/ML Prefilled Syringe [Invega] NERY ([facility]) 1 ML paliperidone palmitate 156 MG/ML Prefilled Syringe [Invega] NERY ([facility]) Cyclobenzaprine hydrochloride 10 MG Oral Tablet NERY ([facility]) Clonidine Hydrochloride 0.1 MG Oral Tablet NERY ([facility]) buspirone hydrochloride 10 MG Oral Tablet NERY ([facility]) ramelteon 8 MG Oral Tablet A THENA ([facility]) 24 HR quetiapine 300 MG Extended Release Oral Tablet NERY ([facility]) 24 HR quetiapine 150 MG Extended Release Oral Tablet NERY ([facility]) quetiapine 100 MG Oral Tablet NERY ([facility]) [place] Carbonate 300 MG Oral Capsule NERY ([facility]) 1.5 ML paliperidone palmitate 156 MG/ML Prefilled Syringe [Invega] NERY ([facility]) 1 ML paliperidone palmitate 156 MG/ML Prefilled Syringe [Invega] NERY ([facility]) Cyclobenzaprine hydrochloride 10 MG Oral Tablet NERY ([facility]) Clonidine Hydrochloride 0.1 MG Oral Tablet NERY ([facility]) buspirone hydrochloride 10 MG Oral Tablet NERY ([facility]) ramelteon 8 MG Oral Tablet A THENA ([facility]) 24 HR quetiapine 150 MG Extended Release Oral Tablet NERY ([facility]) quetiapine 100 MG Oral Tablet NERY ([facility]) [place] Carbonate 300 MG Oral Capsule NERY ([facility]) 1.5 ML paliperidone palmitate 156 MG/ML Prefilled Syringe [Invega] NERY ([facility]) 1 ML paliperidone palmitate 156 MG/ML Prefilled Syringe [Invega] NERY ([facility]) Cyclobenzaprine hydrochloride 10 MG Oral Tablet NERY ([facility]) Clonidine Hydrochloride 0.1 MG Oral Tablet NERY ([facility]) buspirone hydrochloride 10 MG Oral Tablet NERY ([facility])
[2021-02-28] MEDS ORDERED: GABA600T4 PO (13:19)
[2021-02-28] MEDS ORDERED: KETOROLAC 30 MG/ML 1ML VIAL IM ONE (14:45)
[2021-02-28] MEDS ORDERED: LIDOCAINE 5% (LIDODERM) PATCH TD ONE (14:45)
[2021-02-28] MEDS ORDERED: methocarbamoL 750 MG TAB PO ONE (14:45)
[2021-02-28] MEDS ORDERED: KETOROLAC 30 MG/ML 1ML VIAL IV ONE (14:45)
[2021-02-28] MEDS ORDERED: LIDO5DIS41 TOP (15:23)
[2021-02-28] MEDS ORDERED: METH-1164 PO ×2 (15:24→15:28)
[2021-02-28 15:55] VITALS: BP 147/98
[2021-02-28] MEDS ORDERED: **NOTE PATIENT COMMENT** MISC XX SCH (21:00)
== END 2021-02-28 15:58 | disposition home or self-care (01) ==
LOC: M ED 09:34
DX: M51.17 Intervertebral disc disorders with radiculopathy, lumbosacral region (principal); G89.29 Other chronic pain; M54.9 Dorsalgia, unspecified; I10 Essential (primary) hypertension; F31.9 Bipolar disorder, unspecified; F43.10 Post-traumatic stress disorder, unspecified; F17.200 Nicotine dependence, unspecified, uncomplicated
CPT/HCPCS: 96372; 99284; J1885

== ENCOUNTER → 2021-03-14 | Outpatient (CLI) | payer MEDICAID ==
[~2021-03-14] MED LIST changes: +GABA600T4 PO; +LIDO5DIS41 TOP; +METH-1164 PO
--- NOTE | 2021-03-14 15:24 | REP ---
INDICATION: HEADACHE. COMPARISON: None. TECHNIQUE: 5 mm axial images were obtained through the head without contrast. Coronal images were obtained from the original data set. FINDINGS: The visualized paranasal sinuses are clear and the mastoids are well aerated. No fracture of the calvarium is identified. Scans through the heads show normal gyri, ventricular system and basilar cisterns with no mass, hemorrhage or evidence for acute infarct. No extra-axial fluid collections are identified. IMPRESSION: Unremarkable examination with no acute intracranial abnormality identified. <Electronically signed by Shorty Bell > 03/14/21 [id number]
== END ==
LOC: M RAD 14:29
PROVIDERS: ATTEND Family Medicine Addiction Medicine
DX: R51.9 Headache, unspecified (principal)

== ENCOUNTER → 2021-04-04 | Outpatient (CLI) | payer MEDICAID ==
--- NOTE | 2021-04-04 14:31 | REP ---
INDICATION: EVAL FOR LARGE DISC HERNIATION. COMPARISON: 12/25/2020. TECHNIQUE: Sagittal axial images lumbosacral spine. FINDINGS: There is no compression fracture or malalignment. No pars defect is seen. The conus is unremarkable. There is loss of water signal and disc degeneration at L5-S1. There is mild disc space narrowing at that level. At L1-2 there is no significant disc bulge or herniation. There is no spinal stenosis or foraminal narrowing. There is a tiny amount of fluid in the facet joints. At L1-2 there is no significant disc bulging or herniation. There is no spinal stenosis or foraminal narrowing. There is minimal fluid in the facet joints. At L3-4 there is very mild disc bulging and facet arthrosis. There is minimal bilateral foraminal narrowing. There is no spinal stenosis. There is minimal fluid in the facet joints. At L4-5 there is mild diffuse disc bulging without disc herniation. Mild facet arthrosis. There is minimal bilateral foraminal narrowing. There is no central canal stenosis. There is minimal fluid in the facet joints. At L5-S1 disc osteophyte complex is unchanged. There is facet arthrosis with tiny amount of fluid in the facet joints. There is moderate bilateral foraminal narrowing. There is no central canal stenosis. IMPRESSION: Stable exam. <Electronically signed by Tony Marquez > 04/04/21 [id number]
== END ==
LOC: M RAD 09:32
PROVIDERS: ATTEND Physician Assistant
DX: M51.37 Other intervertebral disc degeneration, lumbosacral region (principal); M51.26 Other intervertebral disc displacement, lumbar region

== ENCOUNTER → 2021-10-10 | Outpatient (CLI) | payer MEDICAID ==
[~2021-10-10] MED LIST changes: -LATU40TA; +LATU40TA2
== END ==
LOC: M SOG 08:15
PROVIDERS: ATTEND Orthopaedic Surgery Hand Surgery
DX: G56.03 Carpal tunnel syndrome, bilateral upper limbs (principal)

== ENCOUNTER 2022-06-22 09:48 | Emergency (ER) | payer MEDICAID ==
[~2022-06-22] VITALS: Ht 165.1 cm; Wt 123.2 kg
[2022-06-22 10:33] LABS: BASO % 0.2 % (0.0-1.0); EOS # 0.1 10^3/uL (0.0-0.5); EOS % 0.9 % (0.0-3.0); HEMATOCRIT 46.3 % (36.0-47.0); HEMOGLOBIN 16.4 g/dl (12.0-15.5); LYMPH # 1.5 10^3/uL (1.5-5.0); MEAN CORPUSCULAR HEMOGLOBIN 30.1 pg (27.0-33.0); MEAN CORPUSCULAR HGB CONC 35.4 g/dl (32.0-36.5); MONO # 0.4 10^3/uL (0.0-0.8); MONO % 4.5 % (2.0-8.0); NEUTROPHILS # 7.7 10^3/uL (1.5-8.5); NEUTROPHILS % 78.9 % (36.0-66.0); PLATELET COUNT, AUTOMATED 315 10^3/uL (150-450); RED BLOOD COUNT 5.45 10^6/uL (4.00-5.40); WHITE BLOOD COUNT 9.7 10^3/uL (4.0-10.0)
[2022-06-22 11:01] LABS: LIPASE 69 U/L (12-53)
[2022-06-22 11:03] LABS: ALBUMIN 4.5 G/DL (3.2-5.2); ALKALINE PHOSPHATASE 94 U/L (46-116); ALT/SGPT 28 U/L (7.0-40); AST/SGOT 16 U/L (<34); BILIRUBIN,DIRECT 0.3 MG/DL (<0.4); BILIRUBIN,TOTAL 0.8 MG/DL (0.3-1.2); BLOOD UREA NITROGEN 14 MG/DL (9-23); CALCIUM LEVEL 9.8 MG/DL (8.5-10.1); CARBON DIOXIDE LEVEL 21 MMOL/L (20-31); CHLORIDE LEVEL 113 MMOL/L (98-107); CREATININE FOR GFR 1.26 MG/DL (0.55-1.30); GLOMERULAR FILTRATION RATE > 60.0 (>60); GLUCOSE, FASTING 124 MG/DL (60-100); POTASSIUM SERUM 4.2 MMOL/L (3.5-5.1); SODIUM LEVEL 142 MMOL/L (136-145); TOTAL PROTEIN 7.5 G/DL (5.7-8.2)
[2022-06-22 11:16] LABS: HCG, SERUM QUALITATIVE NEGATIVE (NEGATIVE)
[2022-06-22] MEDS ORDERED: PREV1CAP PO (14:37)
[2022-06-22 14:43] VITALS: BP 134/100
== END 2022-06-22 14:53 | disposition home or self-care (01) ==
LOC: M ED 09:48
DX: R10.84 Generalized abdominal pain (principal); R19.7 Diarrhea, unspecified; Z98.51 Tubal ligation status; F17.200 Nicotine dependence, unspecified, uncomplicated; Z79.899 Other long term (current) drug therapy